=== PATIENT | female | born 1965 | race Caucasian/White ===

== ENCOUNTER 2020-09-26 08:41 | Outpatient (REF) | payer BC, SELFPAY ==
[2020-09-26 09:37] LABS: MANUAL DIFF FLAG NO
[2020-09-26 09:41] LABS: Basophils Percent Auto 0.5 % (0-2); Eosinophils Absolute Auto 0.1 X10*3/uL (0.0-0.4); Eosinophils Percent Auto 2.3 % (0-4); Hematocrit 41.2 % (37-47); Hemoglobin 13.8 g/dl (12.0-16.0); Imm Gran Abs Auto 0.01 X10*3/uL (0.00-0.03); Imm Gran Pct Auto 0.2 % (0.0-0.4); Lymphocytes Absolute Auto 1.6 X10*3/uL (1.2-4.9); Lymphocytes Percent Auto 27.2 % (20-40); Mean Corpuscular HGB Conc 33.5 g/dl (31.0-35.0); Mean Corpuscular Hemoglobin 29.2 pg (27.0-33.0); Mean Corpuscular Volume 87.3 fL (80-98); Mean Platelet Volume 9.5 fL (9.4-12.3); Monocytes Absolute Auto 0.5 X10*3/uL (0.1-1.2); Monocytes Percent Auto 9.1 % (2-11); Neutrophils Absolute Auto 3.5 X10*3/uL (2.0-8.3); Neutrophils Percent Auto 60.7 % (45-73); Platelet Count 241 X10*3/uL (160-400); Red Blood Count 4.72 X10*6/uL (4.20-5.50); Red Cell Distribution Width 12.6 % (11.0-16.0); White Blood Count 5.7 X10*3/uL (4.8-10.8)
[2020-09-26 10:08] LABS: Alanine Aminotransferase 24 U/L (0-31); Albumin Level 4.2 g/dL (3.5-5.0); Alkaline Phosphatase 65 U/L (39-117); Anion Gap 11 (12-20); Aspartate Amino Transferase 20 U/L (5-31); Bilirubin Total 0.6 mg/dL (0.0-1.0); Blood Urea Nitrogen 19 mg/dL (9-16); Calcium 9.2 mg/dL (8.4-10.2); Carbon Dioxide 29 mmol/L (22-29); Chloride 106 mmol/L (96-108); Cholesterol 217 mg/dL; Estimated Glomerular Filt Rate > 60; Glucose Fasting 97 mg/dL (60-99); HDL Cholesterol 47 mg/dL; LDL Cholesterol Calculated 148 mg/dl; Potassium 4.1 mmol/l (3.3-5.1); Sodium 142 mmol/L (135-145); Total Protein 6.7 g/dL (6.5-8.0); Triglycerides 114 mg/dL
[2020-09-26 10:28] LABS: T4 Thyroxine 7.6 ug/dL (4.5-12.0); Thyroid Stimulating Hormone 1.04 uIU/mL (0.32-4.0); Vitamin D 25-OH Total 29.7 ng/mL (>30)
[2020-09-26 11:41] LABS: Folate 15.1 ng/mL (> or = 4.0); Vitamin B12 1358 pg/mL (200-900)
== END 2020-09-26 08:42 | disposition home or self-care (01) ==
LOC: HO.LAB 08:41
PROVIDERS: PCP Internal Medicine; Visit Provider Internal Medicine
DX: J45.909 Unspecified asthma, uncomplicated (principal); Z85.3 Personal history of malignant neoplasm of breast; I10 Essential (primary) hypertension; F41.9 Anxiety disorder, unspecified; S32.020D Wedge compression fracture of second lumbar vertebra, subsequent encounter for fracture with routine healing; K58.9 Irritable bowel syndrome, unspecified; J30.9 Allergic rhinitis, unspecified; G47.00 Insomnia, unspecified
CPT/HCPCS: 36415; 80053; 80061; 82306; 82607; 82746; 84436; 84443; 85025

== ENCOUNTER 2020-11-17 10:36 | Outpatient (REF) | payer BC, SELFPAY ==
--- NOTE | 2020-11-17 10:42 | MM_ITS ---
EXAMINATION: MM SCREENING DIGITAL BREAST TOMOSYNTHESIS, BILATERAL CLINICAL INFORMATION: Screening. Asymptomatic. 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 Left lumpectomy 20 years ago. Family history breast cancer in sister. Due for yearly. The lifetime risk of breast cancer based on the Tyrer-Cuzick Model is 31%. COMPARISON: Mammography: 11/12/2019, 09/19/2018, 08/25/2017 TECHNIQUE: Digital breast tomosynthesis is performed in both the craniocaudal and mediolateral oblique views along with computer-aided detection (CAD). Synthesized 2D images are generated from the tomosynthesis. FINDINGS: There are scattered areas of fibroglandular density (ACR BI-RADS breast composition Category b). Breast tissue composition is similar to prior studies. There are is old scarring right breast consistent with the history prior lumpectomy. Nodular asymmetry anterior left breast on CC view and small nodule posterior outer left breast on CC view are both stable from prior studies. There is no developing density or interval significant mass or architectural abnormality. No abnormal calcifications. No significant changes. MM/MM tomosynthesis screening BI IMPRESSION: No significant changes from prior studies. ASSESSMENT: BI-RADS 2: Benign RECOMMENDATION: 1. Routine annual mammography screening. 2. The lifetime risk of breast cancer based on the Tyrer-Cuzick Model is 31%. Additional annual adjunct screening with breast MRI may be of benefit in women with a risk score of 20% or greater. This patient's information was entered into a reminder system with a target due date for their next mammogram.
== END 2020-11-17 10:37 | disposition home or self-care (01) ==
LOC: HO.MAMMO 10:36
PROVIDERS: PCP Internal Medicine; Visit Provider Internal Medicine
DX: Z12.31 Encounter for screening mammogram for malignant neoplasm of breast (principal)
CPT/HCPCS: 77063; 77067

== ENCOUNTER → 2021-03-30 09:38 | Outpatient (BNV) | payer BC, SELFPAY | PROVIDERS: PCP Internal Medicine; Visit Provider Internal Medicine Medical Oncology | DX: C50.812 Malignant neoplasm of overlapping sites of left female breast (principal) | CPT/HCPCS: 99213; 99214 ==

== ENCOUNTER → 2021-08-02 10:10 | Outpatient (BNVA) | payer BC, SELFPAY | PROVIDERS: PCP Internal Medicine; Referring Provider Internal Medicine; Visit Provider Surgery ==

== ENCOUNTER 2021-08-22 09:58 | Emergency (ER) | payer BC, SELFPAY ==
--- NOTE | ~2021-08-22 | XR_ITS ---
EXAMINATION: XR CHEST CLINICAL INFORMATION: Chest pain COMPARISON: None TECHNIQUE: Frontal view of the chest was obtained. FINDINGS: No significant abnormality is noted involving the heart, lungs, mediastinum, bony thorax or soft tissues. XR/XR chest 1V IMPRESSION: Unremarkable chest exam.
[2021-08-22 10:07] VITALS: BP 168/79; PULSE 56; RESP 18; TEMP 36.3; O2SAT 97; BMI 32.2
--- NOTE | 2021-08-22 10:13 | ECG_ITS ---
Test Reason : CP Blood Pressure : / mmHG Vent. Rate : 060 BPM Atrial Rate : 060 BPM P-R Int : 150 ms QRS Dur : 082 ms QT Int : 424 ms P-R-T Axes : 056 042 062 degrees QTc Int : 424 ms Normal sinus rhythm Nonspecific T wave abnormality Anterior leads Abnormal ECG When compared with ECG of 16-SEP-2017 10:49, Nonspecific T wave abnormality no longer evident in Inferior leads T-wave inversion in Anterior leads is new Referred By: Generic ED Physician Electronically Signed By:ANABELL DORAN MD
[2021-08-22 13:21] LABS: MANUAL DIFF FLAG NO
[2021-08-22 13:25] LABS: Basophils Percent Auto 0.6 % (0-2); Eosinophils Absolute Auto 0.2 X10*3/uL (0.0-0.4); Eosinophils Percent Auto 2.4 % (0-4); Hematocrit 41.1 % (37-47); Imm Gran Abs Auto 0.02 X10*3/uL (0.00-0.03); Imm Gran Pct Auto 0.3 % (0.0-0.4); Lymphocytes Absolute Auto 1.9 X10*3/uL (1.2-4.9); Lymphocytes Percent Auto 29.1 % (20-40); Mean Corpuscular HGB Conc 34.1 g/dl (31.0-35.0); Mean Corpuscular Hemoglobin 29.3 pg (27.0-33.0); Mean Platelet Volume 9.2 fL (9.4-12.3); Monocytes Absolute Auto 0.6 X10*3/uL (0.1-1.2); Monocytes Percent Auto 9.1 % (2-11); Neutrophils Absolute Auto 3.9 X10*3/uL (2.0-8.3); Neutrophils Percent Auto 58.5 % (45-73); Platelet Count 246 X10*3/uL (160-400); Red Blood Count 4.78 X10*6/uL (4.20-5.50); Red Cell Distribution Width 12.9 % (11.0-16.0); White Blood Count 6.6 X10*3/uL (4.8-10.8)
--- NOTE | 2021-08-22 13:35 | ED_ITS ---
HPI - Chest Pain General Chief Complaint: Chest Pain Stated Complaint: chest pain Time Seen by Provider: 08/22/21 12:52 Source: patient Mode of arrival: ambulatory Limitations: no limitations History of Present Illness HPI narrative: Patient comes emergency room complaining left-sided chest pain, intermittent, sharp lasting for approximately 3 seconds at a time. At this time, patient has no chest pain or shortness of breath Patient complaining of occasional shortness of breath. Patient states her symptoms started yesterday afternoon while she was watching TV. Related Data Home Medications Medication Instructions Recorded Confirmed meloxicam 15 mg tablet 15 mg PO DAILY 09/27/20 03/30/21 tramadol 50 mg tablet 50 mg PO DAILY 09/27/20 03/30/21 zolpidem 5 mg tablet 5 mg PO BEDTIME PRN 08/02/21 Previous Rx's Medication Instructions Recorded escitalopram oxalate 20 mg tablet 20 mg PO DAILY #30 tab 02/21/21 albuterol sulfate 90 mcg/actuation 2 puff INHALATION Q6H PRN #8.5 g 03/01/21 aerosol inhaler hydrochlorothiazide 25 mg tablet 25 mg PO DAILY #90 tab 03/01/21 lisinopril 5 mg tablet 5 mg PO DAILY #90 tab 03/01/21 montelukast 10 mg tablet 10 mg PO DAILY #90 tab 03/01/21 eniiylxy-bljwaojwp-xtwsbembr 3.5 4 drp OTIC (EAR) RIGHT Q8H 10 Days 05/31/21 mg-10,000 unit/mL-1 % ear #10 ml drops,susp sumatriptan succinate 100 mg tablet 100 mg PO .QD PRN #10 tab 05/31/21 Allergies Allergy/AdvReac Type Severity Reaction Status Date / Time latex [LATEX] Allergy Intermediate RASH Verified 08/22/21 10:07 ENVIRONMENTAL Allergy Mild HAYFEVER Uncoded 08/02/21 10:47 Review of Systems Review of Systems: Constitutional : No Weight loss, No Fever, No Chills, No Ni ght Sweats, No Fatigue, No Malaise ENT/Mouth : No Hearing loss, No Ear Pain, No Nasal Congestion, No Sinus Pain, No Hoarseness, No sore throat, No Rhinorrhea, No Swallowing Difficulty Eyes: No Eye Pain, No Swelling, No Redness, No Foreign Body, No Discharge, No Vision Changes Cardiovascular : Complaining of sharp chest pain lasting 3 seconds, nonradiating, intermittent. Asymptomatic at this time. No SOB, No Dyspnea on Exertion, No Orthopnea, No Edema, No Palpitations Respiratory : No Cough, No Sputum, No Wheezing, No Smoke Exposure, No Dyspnea Gastrointestinal : No Nausea, No Vomiting, No Diarrhea, No Constipation, No abdominal Pain, No Hematochezia, No Melena Genitourinary : no irregular bleeding, No Dysuria, No Urinary Frequency, No Hematuria, No Urinary Incontinence, No Urgency, No Flank Pain, No Urinary Flow Changes, No Hesitancy Musculoskeletal : No joint pain, No Myalgias, No Joint Swelling Skin : No Skin Lesions, No rash Neuro : No Weakness, No Numbness, No Paresthesias, No Loss of Consciousness, No Dizziness, No Headache Psych : No Anxiety/Panic, No Depression, No SI/HI/AH/VH, No Social Issues, Heme/Lymph: No Bruising, No Bleeding,No Lymphadenopathy Endocrine : No Polyuria, No Polydipsia, No Temperature Intolerance [facility] Past Medical History Medical History Allergic rhinitis Allergic sinusitis Anxiety and depression Asthma Breast cancer Carpal tunnel syndrome Compression fracture of L2 GERD (gastroesophageal reflux disease) Hypercholesterolemia Hypertension Insomnia Irritable bowel syndrome Lumbar degenerative disc disease Migraine Obesity (BMI 30-39.9) Pulmonary nodule Surgical History History of cholecystectomy History of lumpectomy of right breast Status post total abdominal hysterectomy Family History Family History Father Diabetes Hypertension Mother Throat cancer Diabetes Hypertension Breast lump Sister Breast cancer Brother Myocardial infarction CVD (cardiovascular disease) Sister Breast cancer Social History Social History Housing: House Alcohol intake: current Alcohol intake frequency: holidays/special occasions only Alcohol type: beer and wine Patient Tobacco Use Status: Never used Tobacco e-Cigarette/Vaping Use: Never Used Second Hand Smoke Exposure: No Advance Directives: No Advance Directives Information Provided: No Current occupational status: employed Physical Exam Vital Signs: Vital Signs: Last Vital Signs Temp 97.4 F 08/22/21 10:07 Pulse 58 08/22/21 14:41 Resp 14 08/22/21 14:41 BP 150/77 H 08/22/21 14:41 Pulse Ox 98 08/22/21 14:41 Body Mass Index 32.2 Const: Other: Appearance: Alert. Oriented X3. No acute distress. Eyes: Pupils equal, round and reactive to light. ENT: Pharynx normal. Neck: Normal inspection. Neck supple. No lymph nodes noted. No crepitus CVS: Normal heart rate and rhythm. Pulses normal. Normal S1 and S2 Respiratory: No respiratory distress. Breath sounds normal. No Wheezing. No rales Abdomen: Soft and nontender. No rigidity. No distention. good BS x4 Skin: Skin warm and dry. Normal skin color. Normal skin turgor. Extremities: Trace pitting edema bilaterally, no calf tenderness, No Lacerations. No Rash Neuro: Oriented X 3. No motor deficit. No sensory deficit. Moving all extermities. No slurred speech. Course Course Course Narrative: Patient remains asymptomatic at this time, troponin negative, EKG normal. Patient instructed to follow-up with her primary care physician. I discussed with the patient that if she continues having symptoms, she may need a stress MDM - Chest Pain Lab Data Result diagrams: 08/22/21 13:14 08/22/21 13:14 Labs: Lab Results 08/22/21 08/22/21 08/22/21 Range/Units 13:14 13:14 13:14 WBC 6.6 (4.8-10.8) X10*3/uL RBC 4.78 (4.20-5.50) X10*6/uL Hgb 14.0 (12.0-16.0) g/dl Hct 41.1 (37-47) % MCV 86.0 (80-98) fL MCH 29.3 (27.0-33.0) pg MCHC 34.1 (31.0-35.0) g/dl RDW 12.9 (11.0-16.0) % Plt Count 246 (160-400) X10*3/uL MPV 9.2 L (9.4-12.3) fL Immature Gran % (Auto) 0.3 (0.0-0.4) % Neut % (Auto) 58.5 (45-73) % Lymph % (Auto) 29.1 (20-40) % Hinds % (Auto) 9.1 (2-11) % Eos % (Auto) 2.4 (0-4) % Baso % (Auto) 0.6 (0-2) % Lymph # (Auto) 1.9 (1.2-4.9) X10*3/uL Hinds # (Auto) 0.6 (0.1-1.2) X10*3/uL Eos # (Auto) 0.2 (0.0-0.4) X10*3/uL Baso # (Auto) 0.0 (0.0-0.2) X10*3/uL Abs Immat Gran (auto) 0.02 (0.00-0.03) X10*3/uL Absolute Neuts (auto) 3.9 (2.0-8.3) X10*3/uL Absolute Nucleated RBC 0.000 (0.0-0.012) X10*3/uL Nucleated RBC % (auto) 0.0 (0.0-0.2) /100WBC Sodium 139 (135-145) mmol/L Potassium 4.0 (3.3-5.1) mmol/L Chloride 104 (96-108) mmol/L Carbon Dioxide 26 (22-29) mmol/L Anion Gap 13 (12-20) BUN 12 (9-16) mg/dL Creatinine 0.71 (0.5-1.4) mg/dL Estim Creat Clear Calc 80.8 Estimated GFR > 60 Random Glucose 110 (60-115) mg/dL Calcium 9.7 (8.4-10.2) mg/dL Troponin I High Sens < 3.5 (<3.5-17.0) ng/L ECG Data ECG #1: Attestation: I personally reviewed and interpreted this ECG as follows: (Normal sinus rhythm, heart rate 60, no ST segment depression or elevation, no T-wave inversion, QTC 424) Discharge Plan Discharge Clinical Impression: Atypical chest pain Patient Disposition: Home, Self-Care Instructions: Chest Pain (ED) Additional Instructions: Please follow-up with your primary care physician tomorrow. If you have any worsening or new symptoms, please return to the emergency room or call 911 Prescriptions: No Action escitalopram oxalate 20 mg tablet 20 mg PO DAILY Qty: 30 RF: 9 sumatriptan succinate 100 mg tablet 100 mg PO .QD PRN (Reason: migraine headache) Qty: 10 RF: 4 ptuysuwx-eduydqtic-HC 3.5-10,000-1 mg/mL-unit/mL-% drops,suspension 4 drp otic (ear) right Q8H 10 Days Qty: 10 RF: 0 meloxicam 15 mg tablet 15 mg PO DAILY RF: 0 tramadol 50 mg tablet 50 mg PO DAILY RF: 0 albuterol sulfate 90 mcg/actuation HFA aerosol inhaler 2 puff inhalation Q6H PRN (Reason: bronchospasm) Qty: 8.5 RF: 0 hydrochlorothiazide 25 mg tablet 25 mg PO DAILY Qty: 90 RF: 2 lisinopril 5 mg tablet 5 mg PO DAILY Qty: 90 RF: 3 montelukast 10 mg tablet 10 mg PO DAILY Qty: 90 RF: 3 zolpidem 5 mg tablet 5 mg PO BEDTIME PRNRF: 0
[2021-08-22 13:56] LABS: Troponin-I High Sensitivity < 3.5 ng/L (<3.5-17.0)
[2021-08-22 13:57] LABS: Anion Gap 13 (12-20); Blood Urea Nitrogen 12 mg/dL (9-16); Calcium 9.7 mg/dL (8.4-10.2); Carbon Dioxide 26 mmol/L (22-29); Chloride 104 mmol/L (96-108); Creatinine Clr Calc Pharmacy 80.8; Estimated Glomerular Filt Rate > 60; Glucose Random 110 mg/dL (60-115); Sodium 139 mmol/L (135-145)
[2021-08-22 14:41] VITALS: BP 150/77; PULSE 58; RESP 14; O2SAT 98
== END 2021-08-22 15:39 | disposition home or self-care (01) ==
PROVIDERS: Emergency Provider Emergency Medicine; PCP Internal Medicine
DX: R07.89 Other chest pain (principal); I10 Essential (primary) hypertension; J45.909 Unspecified asthma, uncomplicated
CPT/HCPCS: 36415; 71045; 80048; 84484; 85025; 93005; 99283; 99284

== ENCOUNTER 2021-09-13 10:35 | Outpatient (REF) | payer BC, SELFPAY ==
--- NOTE | ~2021-09-13 | MR_ITS ---
EXAMINATION: MR BREAST WITHOUT AND WITH CONTRAST, BILATERAL CLINICAL INFORMATION: History of right breast DCIS. High-risk screening. COMPARISON: MRI 10/28/2012. TECHNIQUE: Imaging was performed with a dedicated breast coil. Prior to the administration of contrast, bilateral axial T1 and bilateral axial T2 weighted sequences were obtained. After the uneventful administration of?7.5 mL of Gadavist, dynamic contrast-enhanced VIBRANT series through the breasts in the axial plane were performed. Subtracted images were performed and reviewed. A delayed sagittal sequence through both breasts was acquired. Additionally, CAD post-processing, including maximum intensity projections, 3-D reconstructions and kinetic analysis, were performed an independent workstation and reviewed by the interpreting radiologist is a portion of this exam. FINDINGS: The patient's fibroglandular tissue demonstrates moderate background enhancement. LEFT BREAST: In the 12 o'clock position of the left breast, there is linear non-mass enhancement measuring 0.7 cm in size which demonstrates plateau or type II enhancement (image 68, series 100). This is a new finding compared to the remote MRI. No mammographic correlate. Recommend MRI-guided biopsy. There are a few additional scattered foci of enhancement. No other definite suspicious [id number] or mass-like enhancement. T2 hyperintense enhancing focus in the left breast, 12 o'clock more superiorly is consistent with an intramammary lymph node. Review of the T2-weighted images demonstrates no additional findings. Review of the kinetic images demonstrates no additional suspicious findings. RIGHT BREAST: No suspicious mass-like or [id number] enhancement. No abnormal skin thickening or nipple retraction. No abnormal architectural distortion. Review of the T2 weighted images demonstrates no fibrocystic changes or dilated ducts. Review of kinetic images reveals no additional findings. There is no suspicious internal mammary chain or axillary adenopathy. Limited views of the chest and abdomen are unremarkable. MR/MR breast BI wo/w con IMPRESSION: Indeterminant non-mass enhancement, left breast, 12 o'clock. No MR specific evidence of right breast malignancy. ASSESSMENT: LEFT BREAST: BI-RADS 4 - Suspicious abnormality - Biopsy should be considered. RIGHT BREAST: BI-RADS 1-Negative RECOMMENDATIONS: MRI-guided biopsy, left breast, 12 o'clock. This recommendation will be called to the referring office.
== END 2021-09-13 10:36 | disposition home or self-care (01) ==
LOC: HO.MRI 10:35
PROVIDERS: Visit Provider Surgery
DX: D05.10 Intraductal carcinoma in situ of unspecified breast (principal)
CPT/HCPCS: 77049; A9585

== ENCOUNTER 2021-10-02 07:46 | Outpatient (REF) | payer BC, SELFPAY ==
--- NOTE | ~2021-10-02 | MM_ITS ---
EXAMINATION: MR GUIDED VACUUM-ASSISTED CORE BIOPSY BREAST, LEFT MM DIGITAL MAMMOGRAPHY POST BIOPSY, LEFT CLINICAL INFORMATION: 7 mm nonenhanced linear enhancement 12:00 left breast on high risk screening. No mammographic correlate. History contralateral right breast severely atypical ductal hyperplasia, bordering on DCIS. COMPARISON: MR of breasts 09/13/2021, mammography 11/17/2020. TECHNIQUE/PROCEDURE: Informed consent was obtained from the patient after discussion of the benefits, risks, and alternatives to biopsy today. Patient appeared to understand. Gave opportunity for questions. Patient signed consent form. Biopsy is performed under MRI guidance using breast surface coil. Imaging is performed without and with use of 7.5 mL Gadavist gadolinium contrast. [employer]ibi[employer] introducer localization system is used with grid. LESION: 7 mm linear non mass enhancement 12:00. LOCAL ANESTHESIA: 8 mL 1% lidocaine; 10 mL 1% lidocaine with epinephrine. NEEDLE: [employer] 9-gauge vacuum assisted core biopsy device. APPROACH: Lateral medial. CORES: 9. CLIP: TriMark cylinder shaped. POSTPROCEDURE UNILATERAL DIGITAL MAMMOGRAM: Mammography is performed using digital mammography in CC and ML views. There are scattered areas of fibroglandular density (ACR BI-RADS breast composition Category b). The clip marker is in position. No gross hematoma. The patient tolerated the procedure well. No immediate complications. Home instructions reviewed with the patient. Final pathology results are pending. MM/MM diagnostic mammo unilat LT IMPRESSION: 1. Status post MRI guided vacuum-assisted core biopsy left breast with clip placement. 2. Final pathology results pending. An addendum report will be issued.
--- NOTE | ~2021-10-02 | MR_ITS ---
EXAMINATION: MR GUIDED VACUUM-ASSISTED CORE BIOPSY BREAST, LEFT MM DIGITAL MAMMOGRAPHY POST BIOPSY, LEFT CLINICAL INFORMATION: 7 mm nonenhanced linear enhancement 12:00 left breast on high risk screening. No mammographic correlate. History contralateral right breast severely atypical ductal hyperplasia, bordering on DCIS. COMPARISON: MR of breasts 09/13/2021, mammography 11/17/2020. TECHNIQUE/PROCEDURE: Informed consent was obtained from the patient after discussion of the benefits, risks, and alternatives to biopsy today. Patient appeared to understand. Gave opportunity for questions. Patient signed consent form. Biopsy is performed under MRI guidance using breast surface coil. Imaging is performed without and with use of 7.5 mL Gadavist gadolinium contrast. [employer] introducer localization system is used with grid. LESION: 7 mm linear non mass enhancement 12:00. LOCAL ANESTHESIA: 8 mL 1% lidocaine; 10 mL 1% lidocaine with epinephrine. NEEDLE: [employer] 9-gauge vacuum assisted core biopsy device. APPROACH: Lateral medial. CORES: 9. CLIP: TriMark cylinder shaped. POSTPROCEDURE UNILATERAL DIGITAL MAMMOGRAM: Mammography is performed using digital mammography in CC and ML views. There are scattered areas of fibroglandular density (ACR BI-RADS breast composition Category b). The clip marker is in position. No gross hematoma. The patient tolerated the procedure well. No immediate complications. Home instructions reviewed with the patient. Final pathology results are pending. MR/MR guided breast biopsy LT IMPRESSION: 1. Status post MRI guided vacuum-assisted core biopsy left breast with clip placement. 2. Final pathology results pending. An addendum report will be issued.
[2021-10-02] MEDS: Lidocaine HCl 1 % MPF 5 ML VIAL SUBCUT ×2 (09:44→09:45)
== END 2021-10-02 07:47 | disposition home or self-care (01) ==
LOC: HO.MRI 07:46
PROVIDERS: Visit Provider Surgery
DX: R92.8 Other abnormal and inconclusive findings on diagnostic imaging of breast (principal); C50.919 Malignant neoplasm of unspecified site of unspecified female breast
CPT/HCPCS: 19085; 77065; 88305; 88341; 88342; A4648; A9585

== ENCOUNTER → 2021-10-11 13:52 | Outpatient (BNVA) | payer BC, SELFPAY | PROVIDERS: PCP Internal Medicine; Referring Provider Internal Medicine; Visit Provider Surgery ==

== ENCOUNTER → 2021-11-19 10:19 | Outpatient (REF) | payer BC, SELFPAY ==
--- NOTE | 2021-11-19 10:22 | CA_ITS ---
Acquisition Time: 2021-11-19 11:16:20 Total Exercise Time: 00:06:35 Test Indications: CP Medications: SEE CHART Protocol: BROCK Max HR: 176 BPM 106% of Pred: 165 BPM Max BP: 176/064 mmHG Max Work Load: 7.9 METS Exercise stress test with exercise 6 min 35 sec of Brock protocol, without anginal symptoms, without arrythmia, with normotensive response to exercise, without EKG changes meeting criteria for ischemia at peak exercise, with scooping ST segments inferiorly in recovery - nonspecific. Test reviewed with Dr Fry. Msg sent to Dr Levy. Recommended stress echocardiogram for further evaluation. Referred By: Aniceto Levy Overread By: FABRIZIO MANRIQUE
== END ==
LOC: HO.CARD 10:19
PROVIDERS: PCP Internal Medicine; Visit Provider Internal Medicine
DX: R07.9 Chest pain, unspecified (principal)
CPT/HCPCS: 93017

== ENCOUNTER 2021-11-19 11:07 | Outpatient (REF) | payer BC, SELFPAY ==
[2021-11-19 11:21] LABS: MANUAL DIFF FLAG NO
[2021-11-19 11:25] LABS: Basophils Percent Auto 0.7 % (0-2); Eosinophils Absolute Auto 0.2 X10*3/uL (0.0-0.4); Eosinophils Percent Auto 2.5 % (0-4); Hematocrit 44.6 % (37.0-47.0); Hemoglobin 14.9 g/dl (12.0-16.0); Imm Gran Abs Auto 0.02 X10*3/uL (0.00-0.03); Imm Gran Pct Auto 0.3 % (0.0-0.4); Lymphocytes Absolute Auto 1.5 X10*3/uL (1.2-4.9); Lymphocytes Percent Auto 23.7 % (20-40); Mean Corpuscular HGB Conc 33.4 g/dl (31.0-35.0); Mean Corpuscular Hemoglobin 28.8 pg (27.0-33.0); Mean Corpuscular Volume 86.3 fL (80.0-98.0); Mean Platelet Volume 8.7 fL (9.4-12.3); Monocytes Absolute Auto 0.9 X10*3/uL (0.1-1.2); Monocytes Percent Auto 14.5 % (2-11); Neutrophils Absolute Auto 3.6 x10*3/uL (2.0-8.3); Neutrophils Percent Auto 58.3 % (45-73); Platelet Count 238 X10*3/uL (160-400); Red Blood Count 5.17 X10*6/uL (4.20-5.50); Red Cell Distribution Width 12.8 % (11.0-16.0); White Blood Count 6.1 X10*3/uL (4.8-10.8)
[2021-11-19 11:36] LABS: Estimated Average Glucose 114 mg/dL; Hemoglobin A1C 149.5496 umol/L; Hemoglobin A1c % 5.6 %
[2021-11-19 11:54] LABS: Alanine Aminotransferase 33 U/L (0-31); Albumin Level 4.4 g/dL (3.5-5.0); Alkaline Phosphatase 83 U/L (39-117); Anion Gap 12 (12-20); Aspartate Amino Transferase 27 U/L (5-31); Bilirubin Total 0.5 mg/dL (0.0-1.0); Blood Urea Nitrogen 13 mg/dL (9-16); Calcium 10.1 mg/dL (8.4-10.2); Carbon Dioxide 29 mmol/L (22-29); Chloride 103 mmol/L (96-108); Cholesterol 219 mg/dL; Estimated Glomerular Filt Rate > 60; Glucose Random 105 mg/dL (60-115); HDL Cholesterol 44 mg/dL; LDL Cholesterol Calculated 150 mg/dl; Potassium 3.8 mmol/L (3.3-5.1); Sodium 140 mmol/L (135-145); Total Protein 7.5 g/dL (6.5-8.0); Triglycerides 129 mg/dL
[2021-11-19 12:20] LABS: Free T4 (Free Thyroxine) 1.12 ng/dL (0.71-1.85); Thyroid Stimulating Hormone 0.92 uIU/mL (0.32-4.0); Vitamin D 25-OH Total 34.8 ng/mL (>30)
[2021-11-19 12:30] LABS: Folate 18.3 ng/mL (> or = 4.0); Vitamin B12 528 pg/mL (200-900)
== END 2021-11-19 11:08 | disposition home or self-care (01) ==
LOC: HO.LAB 11:07
PROVIDERS: PCP Internal Medicine; Visit Provider Internal Medicine
DX: R73.02 Impaired glucose tolerance (oral) (principal); E78.00 Pure hypercholesterolemia, unspecified; R07.9 Chest pain, unspecified
CPT/HCPCS: 36415; 80053; 80061; 82306; 82607; 82746; 83036; 84439; 84443; 85025

== ENCOUNTER 2021-12-04 10:00 | Outpatient (REF) | payer BC, SELFPAY ==
[2021-12-04 11:07] LABS: MANUAL DIFF FLAG NO
[2021-12-04 11:38] LABS: Basophils Absolute Auto 0.1 X10*3/uL (0.0-0.2); Basophils Percent Auto 0.6 % (0-2); Eosinophils Absolute Auto 0.2 X10*3/uL (0.0-0.4); Eosinophils Percent Auto 1.9 % (0-4); Hematocrit 43.3 % (37.0-47.0); Hemoglobin 14.4 g/dl (12.0-16.0); Imm Gran Abs Auto 0.04 X10*3/uL (0.00-0.03); Imm Gran Pct Auto 0.5 % (0.0-0.4); Lymphocytes Absolute Auto 2.1 X10*3/uL (1.2-4.9); Lymphocytes Percent Auto 26.3 % (20-40); Mean Corpuscular HGB Conc 33.3 g/dl (31.0-35.0); Mean Corpuscular Hemoglobin 28.6 pg (27.0-33.0); Mean Corpuscular Volume 85.9 fL (80.0-98.0); Mean Platelet Volume 9.5 fL (9.4-12.3); Monocytes Absolute Auto 0.8 X10*3/uL (0.1-1.2); Monocytes Percent Auto 10.4 % (2-11); Neutrophils Absolute Auto 4.9 x10*3/uL (2.0-8.3); Neutrophils Percent Auto 60.3 % (45-73); Platelet Count 295 X10*3/uL (160-400); Red Blood Count 5.04 X10*6/uL (4.20-5.50); Red Cell Distribution Width 12.6 % (11.0-16.0); White Blood Count 8.1 X10*3/uL (4.8-10.8)
[2021-12-04 12:17] LABS: Alanine Aminotransferase 26 U/L (0-31); Albumin Level 4.3 g/dL (3.5-5.0); Alkaline Phosphatase 83 U/L (39-117); Anion Gap 15 (12-20); Aspartate Amino Transferase 20 U/L (5-31); Bilirubin Total 0.6 mg/dL (0.0-1.0); Blood Urea Nitrogen 22 mg/dL (9-16); Calcium 10.4 mg/dL (8.4-10.2); Carbon Dioxide 28 mmol/L (22-29); Chloride 101 mmol/L (96-108); Estimated Glomerular Filt Rate > 60; Glucose Random 92 mg/dL (60-115); Potassium 4.5 mmol/L (3.3-5.1); Sodium 139 mmol/L (135-145); Total Protein 7.5 g/dL (6.5-8.0)
[2021-12-04 12:25] LABS: Ferritin 150 ng/mL (10-250); Thyroid Stimulating Hormone 1.09 uIU/mL (0.32-4.0)
== END 2021-12-04 10:01 | disposition home or self-care (01) ==
LOC: HO.LAB 10:00
PROVIDERS: PCP Internal Medicine; Referring Provider Internal Medicine; Visit Provider Psychiatry & Neurology Neurology
DX: G47.10 Hypersomnia, unspecified (principal); G25.81 Restless legs syndrome; R06.83 Snoring
CPT/HCPCS: 36415; 80053; 82728; 84443; 85025

== ENCOUNTER → 2021-12-19 10:14 | Outpatient (REF) | payer BC, SELFPAY ==
--- NOTE | 2021-12-19 10:17 | CA_ITS ---
Acquisition Time: 2021-12-19 10:46:30 Total Exercise Time: 00:07:28 Test Indications: Abnormal Treadmill Test Medications: BUPROPION ESCITALOPRAM FAMOTIDINE FEXOFINEDINE HCTZ LISINOPRIL MELOXICAM SUMATRIPTAN Protocol: BROCK Max HR: 193 BPM 116% of Pred: 165 BPM Max BP: 176/078 mmHG Max Work Load: 9.2 METS Exercise stress test with exercise 7 min 28 sec of Brock protocol, without mild sob, no chest discomfort, without arrythmia, with normotensive response to exercise, with significant artifact at peak exercise, without EKG changes meeting criteria at 29 sec of recovery, with nonspecific ST changes inferiorly in recovery. Echo images obtained by tech at rest at immediately post peak exercise. Definity contrast used. Post images she reported feeling lightheaded and was placed in supine position. Her vitals remained stable. Once symptom passess she was given some caffinated soda, recovery completed and she was allowed to leave cardiology department without lightheadedness. Test reviewed with Dr Alcantar. Referred By: Aniceto Levy Overread By: FABRIZIO MANRIQUE
== END ==
LOC: HO.CARD 10:14
PROVIDERS: Visit Provider Internal Medicine
DX: R07.9 Chest pain, unspecified (principal)
CPT/HCPCS: 93350; Q9957

== ENCOUNTER → 2022-02-06 10:26 | Outpatient (REF) | payer BC, SELFPAY | LOC: HO.SL 10:26 | PROVIDERS: Visit Provider Psychiatry & Neurology Neurology | DX: Z13.89 Encounter for screening for other disorder (principal) ==

== ENCOUNTER → 2022-03-19 09:51 | Outpatient (REF) | payer BC, SELFPAY | LOC: HO.SL 09:51 | PROVIDERS: PCP Internal Medicine; Visit Provider Psychiatry & Neurology Neurology | DX: R06.83 Snoring (principal); G47.10 Hypersomnia, unspecified; G25.81 Restless legs syndrome | CPT/HCPCS: 95806 ==

== ENCOUNTER 2022-05-08 06:28 | Day surgery (SDC) | payer BC, SELFPAY ==
--- NOTE | 2022-05-07 09:45 | HO.ANESPROP2 ---
HPI - Anesthesia Eval Consult details Narrative: 56yo F for Left Breast Lumpectomy/Needle Loc PMFSH Active Problems Active Problems: All Active Problems (Updated 02/18/22 @ 16:01 by Aniceto Levy MD) Vision problem (Acute) Anemia (Acute) Restless legs (Acute) Snoring (Acute) Cervical radiculopathy (Acute) Thoracic spondylosis (Acute) Hypersomnia (Acute) DCIS (ductal carcinoma in situ) of breast (Acute) Blood sugar increased (Acute) Otitis externa (Acute) Annual physical exam (Acute) Generalized anxiety disorder (Acute) Dysphagia (Acute) Chest pain (Acute) Constipation (Acute) Impaired glucose tolerance (Acute) Abnormal magnetic resonance imaging of left breast (Acute) Intraductal papilloma of left breast (Acute) Allergic rhinitis (Acute) Breast cancer (Acute) Compression fracture of L2 (Acute) Obesity (BMI 30-39.9) (Acute) Hypercholesterolemia (Acute) Irritable bowel syndrome (Acute) GERD (gastroesophageal reflux disease) (Acute) Asthma (Acute) Hypertension (Acute) Past Medical History Medical History Allergic sinusitis Carpal tunnel syndrome COVID-19 vaccine series completed Insomnia Lumbar degenerative disc disease Migraine Pulmonary nodule Family History Family History Father Diabetes Hypertension Myocardial infarction Mother Throat cancer Diabetes Hypertension Breast lump Sister Breast cancer Brother Myocardial infarction CVD (cardiovascular disease) Substance abuse Sister Breast cancer Son Diabetes Surgical History Surgical History H/O breast biopsy H/O colonoscopy History of cholecystectomy History of lumpectomy of right breast Status post total abdominal hysterectomy Social History Social History Housing: House Alcohol intake: current Alcohol intake frequency: holidays/special occasions only Alcohol type: beer and wine Patient Tobacco Use Status: Never used Tobacco e-Cigarette/Vaping Use: Never Used Second Hand Smoke Exposure: No Current occupational status: employed Cognitive needs: No Hearing needs: No Vision needs: No Meds Allergies Allergy/AdvReac Type Severity Reaction Status Date / Time latex [LATEX] Allergy Intermediate RASH Verified 02/18/22 15:38 ENVIRONMENTAL Allergy Mild HAYFEVER Uncoded 02/18/22 15:38 Home Medications Medication Instructions Recorded Confirmed Last Taken Type meloxicam 15 mg tablet 15 mg PO DAILY 09/27/20 02/18/22 Unknown History tramadol 50 mg tablet 50 mg PO DAILY PRN Pain 09/27/20 02/18/22 Unknown History zolpidem 5 mg tablet 5 mg PO BEDTIME PRN Insomnia 08/02/21 02/18/22 Unknown History cholecalciferol (vitamin D3) 25 25 mcg PO DAILY 10/01/21 02/18/22 Unknown History mcg (1,000 unit) capsule Exam Exam Date and Time: May 07, 2022 0945 Pertinent Lab Results Pertinent Lab Results: Laboratory Tests 12/06/21 12/06/21 10:26 10:26 WBC 7.4 Hgb 14.2 Hct 42.7 Plt Count 290 Sodium 139 Potassium 3.9 Chloride 103 Carbon Dioxide 27 BUN 17 H Creatinine 0.84 Narrative Narrative: EKG 08/2021 Vent. Rate : 060 BPM ? ? Atrial Rate : 060 BPM ?? P-R Int : 150 ms? QRS Dur : 082 ms ? ? QT Int : 424 ms ? ? ? P-R-T Axes : 056 042 062 degrees ?? QTc Int : 424 ms ? Normal sinus rhythm Nonspecific T wave abnormality Anterior leads Abnormal ECG When compared with ECG of 16-SEP-2017 10:49, Nonspecific T wave abnormality no longer evident in Inferior leads T-wave inversion in Anterior leads is new Stress ECHO 12/2021 Fidnings : ? At rest images are of adequate quality. LV systolic function is normal with normal wall motion. post exercise images are of adequate quality with monse eoff axis views. Overall augmentation of LV systolic function is good? with no regional wall motion abnormalities. ? Conclusion : ? Stress echo is negative for myocardial effusion Assessment and Plan Assessment Anesthesia Assessment: Chart Reviewed
[2022-05-08] VITALS (12 sets, daily range): BP systolic 121–152; BP diastolic 66–81; PULSE 67–86; RESP 16–18; TEMP 36.1–36.3; O2SAT 94–98; BMI 32.4
--- NOTE | ~2022-05-08 | MM_ITS ---
EXAMINATION: MM MAMMOGRAM GUIDED NEEDLE LOCALIZATION BREAST, LEFT MM NEEDLE LOCALIZATION SPECIMEN FROM THE LEFT BREAST CLINICAL INFORMATION: Sclerosing papilloma on MR biopsy left breast 10/02/2021. Prior history contralateral right breast severely atypical ductal hyperplasia, bordering on DCIS. Family history breast cancer, sister. COMPARISON: MR biopsy and postbiopsy mammography 10/02/2021 TECHNIQUE NEEDLE LOC: Proper informed consent is obtained from the patient after discussion of the procedure, potential risks and complications, and alternatives including declining the procedure today. Patient was given an opportunity for questions. The patient appeared to understand. The patient consented to the procedure and signed the consent form. GUIDANCE: Digital mammography. APPROACH: Cranio-caudal. TARGET: Cylinder shaped biopsy clip marker anterior 12:00 left breast. ANESTHESIA: Carbonated lidocaine 1%: 6 mL. LOCALIZATION MARKER: [place] [employer], 7.5 cm length. The skin is prepped and local anesthesia administered. The needle is positioned and position assessed with mammography. The wire is hooked into position. Mcleod needle protector placed. The patient tolerated the procedure well and had no immediate complication. Procedure results called to chief medical officer (Paty) for Dr. Rivas. TECHNIQUE SPECIMEN RADIOGRAPH: Imaging of the excised specimen is performed using digital mammography in 1 view. FINDINGS SPECIMEN RADIOGRAPH: The specimen shows the distal needle and distal hookwire are delivered intact. Proximal needle sectioned in OR prior to delivery to radiology. The axilla and there are biopsy clip marker is in the specimen adjacent to the localization needle. Results were called to Dr. David Rivas in the operating room at the time of imaging. MM/MM needle loc LT IMPRESSION: 1. Status post left breast needle localization with wire hooked into position. 2. Post operative specimen radiograph obtained.
[2022-05-08] MEDS: Lactated Ringers 1,000 ML 100 ML IVCONT (07:47)
--- NOTE | 2022-05-08 08:12 | MHC.SHP ---
Pre-Procedural Eval Section A Date of Service: 05/08/22 The patient is an INPATIENT: No Changes since office visit: Yes Patient answered all questions; No Cold of Flu in the past 2 weeks, No New Medical Problems and No Changes in Medication The History & Physical has been completed within 30 days and I have reviewed it.: Yes Section B Chief Complaint: breast ca Allergies: Allergies Allergy/AdvReac Type Severity Reaction Status Date / Time latex [LATEX] Allergy Intermediate RASH Verified 02/18/22 15:38 ENVIRONMENTAL Allergy Mild HAYFEVER Uncoded 02/18/22 15:38 Plan Diagnosis/Plan: Unchanged I have reviewed the history and physical and performed a pertinent physical examination on my patient. No changes have occurred unless specified.
--- NOTE | 2022-05-08 08:14 | MHC.SHP ---
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 Relevant Family History (Specify if Yes): No Relevant Social History: None Present Medications: see Short Stay Collaborative assessment Medical History: Significant History (DCIS , compression fx L1, Asthma, HTN) History of Previous Operations: Relevant previous surgery/procedure and date(s) (Breast lumpectomy) Allergies: Allergies Allergy/AdvReac Type Severity Reaction Status Date / Time latex [LATEX] Allergy Intermediate RASH Verified 02/18/22 15:38 ENVIRONMENTAL Allergy Mild HAYFEVER Uncoded 02/18/22 15:38 Review of Systems Sugical H&P ROS: Negative: Constitution, Cardiovascular, Respiratory, Neurological, Psychiatric, Hem-Onc, Allergic/Immunologic, Gastrointestinal, Genitourinary, Musculoskeletal, Integumentary, Endocrine and Eyes/Ears/Nose/Throat Exam Surgical H&P Exam: Normal: HEENT, Normal: Heart, Normal: Lungs, Normal: Extremities, Normal: Abdomen, Normal: Skin and Normal: Neurological Plan Diagnosis/Plan: Unchanged I have reviewed the history and physical and performed a pertinent physical examination on my patient. No changes have occurred unless specified.
--- NOTE | 2022-05-08 08:42 | HO.ANESPROP2 ---
[facility] Active Problems Active Problems: All Active Problems (Updated 02/18/22 @ 16:01 by Aniceto Levy MD) Vision problem (Acute) Anemia (Acute) Restless legs (Acute) Snoring (Acute) Cervical radiculopathy (Acute) Thoracic spondylosis (Acute) Hypersomnia (Acute) DCIS (ductal carcinoma in situ) of breast (Acute) Blood sugar increased (Acute) Otitis externa (Acute) Annual physical exam (Acute) Generalized anxiety disorder (Acute) Dysphagia (Acute) Chest pain (Acute) Constipation (Acute) Impaired glucose tolerance (Acute) Abnormal magnetic resonance imaging of left breast (Acute) Intraductal papilloma of left breast (Acute) Allergic rhinitis (Acute) Breast cancer (Acute) Compression fracture of L2 (Acute) Obesity (BMI 30-39.9) (Acute) Hypercholesterolemia (Acute) Irritable bowel syndrome (Acute) GERD (gastroesophageal reflux disease) (Acute) Asthma (Acute) Hypertension (Acute) Past Medical History Medical History Allergic sinusitis Carpal tunnel syndrome COVID-19 vaccine series completed Insomnia Lumbar degenerative disc disease Migraine Pulmonary nodule Patient : No Family History Family History Father Diabetes Hypertension Myocardial infarction Mother Throat cancer Diabetes Hypertension Breast lump Sister Breast cancer Brother Myocardial infarction CVD (cardiovascular disease) Substance abuse Sister Breast cancer Son Diabetes Family history of problems with anesthesia: No Surgical History Surgical History H/O breast biopsy H/O colonoscopy History of cholecystectomy History of lumpectomy of right breast Status post total abdominal hysterectomy History of Problems with Anesthesia: No Social History Social History Housing: House Alcohol intake: current Alcohol intake frequency: holidays/special occasions only Alcohol type: beer and wine Patient Tobacco Use Status: Never used Tobacco e-Cigarette/Vaping Use: Never Used Second Hand Smoke Exposure: No Use of substances other than those prescribed or required for medical reasons: No Advance Directives: No Advance Directives Information Provided: Yes Current occupational status: employed Cognitive needs: No Hearing needs: No Vision needs: No Meds Allergies Allergy/AdvReac Type Severity Reaction Status Date / Time latex [LATEX] Allergy Intermediate RASH Verified 02/18/22 15:38 ENVIRONMENTAL Allergy Mild HAYFEVER Uncoded 02/18/22 15:38 Active Medications: Current Medications Albuterol Sulfate (Albuterol Sulfate (0.083%) 2.5 Mg/3 Ml Vial.Neb) 2.5 mg INHALE ONCE PRN PRN Reason: Shortness of Breath/Wheezing Lactated Ringer's (Lr) 1,000 mls @ 100 mls/hr IVCONT .Q10H KELLY Last Admin: 05/08/22 07:47 Dose: 100 mls/hr Home Medications Medication Instructions Recorded Confirmed Last Taken Type meloxicam 15 mg tablet 15 mg PO DAILY 09/27/20 02/18/22 Unknown History tramadol 50 mg tablet 50 mg PO DAILY PRN Pain 09/27/20 02/18/22 Unknown History zolpidem 5 mg tablet 5 mg PO BEDTIME PRN Insomnia 08/02/21 02/18/22 Unknown History cholecalciferol (vitamin D3) 25 25 mcg PO DAILY 10/01/21 02/18/22 Unknown History mcg (1,000 unit) capsule Exam Exam Date and Time: May 08, 2022 0842 Height,Weight and Vital Signs: Height 5 ft Weight 75.296 kg Last Vital Signs Temp 97.3 F 05/08/22 07:44 Pulse 67 05/08/22 07:44 Resp 16 05/08/22 07:44 BP 135/72 05/08/22 07:44 Pulse Ox 97 05/08/22 07:44 O2 Del Method 05/08/22 07:44 Airway Mallampati Class: I TM Dist: >3cm Neck ROM: Full Denture: Upper and Lower Heart: rrr Lungs: clear Assessment and Plan Final Anesthetic Review Family History of Problems with Anesthesia: No History of Problems with Anesthesia: No NPO: Yes ASA Class: III Final Preanesthetic Review: No Changes in Pt Med Stat, Meds/Allgs Chart Reviewed, Consent Obtained/Reviewed and Anes Risks/Benef Reviewed Patient Risk: Intermediate Procedure Risk: Low Anesthetic Plan Anesthetic Plan: GA Disposition: Standard PACU
--- NOTE | 2022-05-08 08:44 | PC.NURSE ---
back from needle localization
[2022-05-08] MEDS: Lidocaine HCl 1 % 20 ML VIAL 9 ML SUBCUT (09:01)
[2022-05-08] MEDS: Sodium Bicarbonate 8.4% 50 MEQ/50 ML VIAL SUBCUT (09:02)
--- NOTE | 2022-05-08 10:10 | W.PM.OPN ---
Operative Note Operative Note Date of Service: 05/08/22 Narrative: Preoperative diagnosis: Intraductal papilloma left breast Postoperative diagnosis: same Procedure: left breast lumpectomy with needle localization Surgeon: David Rivas MD Central Sterilization Technician: no physician Anesthesia: general LMA Indications for procedure: 57-year-old female patient presenting with abnormal lesion noted on MRI of the breast. Subsequent biopsy revealed intraductal papilloma. She presents today for wide excision to assure complete removal. Operative findings: Specimen x-ray confirms marking clip within the specimen. Specimen: Left breast lumpectomy Estimated blood loss: 2 mL Complications: none Procedure details: patient was brought to the OR placed in a supine position. After administering general anesthesia, the patient is left breast was prepped with ChloraPrep and draped in a sterile fashion. A surgical time-out was called the consent confirmed. Patient received preoperative antibiotics and Venodyne boots were in place. Local anesthesia consisting of 0.5% Sensorcaine was then infiltrated around the localizing needle. A curvilinear incision was made around the nipple and carried out through subcutaneous tissue. Superior inferior skin flaps created. Dissection was continued superiorly up to the localizing needle. Dissection was then continued to the tip of the needle inferiorly. Medial-lateral dissection was then performed using sharp dissection with a curved Paris scissor. The needle was then cut below the skin and posterior dissection performed again using sharp dissection with a curved Paris scissor the specimen was removed and sent to pathology for further examination. The specimen was marked with a long suture on the lateral margin, short suture on the superior margin, and loop suture on the inferior margin. The wounds were checked for hemostasis with electrocautery. Wounds were then irrigated with saline solution and suctioned dry. Deep breast tissue was closed using interrupted 3-0 Polysorb sutures. Superficial breast tissue and dermis were then reapproximated using interrupted 3-0 Polysorb sutures. Skin was closed using a running subcuticular 4-0 Polysorb suture. Steri-Strips, 2 x 2 gauze and Tegaderm were then applied. The patient tolerated the procedure well. Sponge, instrument, needle counts reported as correct. The patient was transferred to PACU in stable condition.
[2022-05-08] MEDS: oxyCODONE HCl Immed Release 5 MG TABLET PO (11:00)
[2022-05-08] MEDS: Acetaminophen 325 MG TABLET 650 MG PO (11:14)
[2022-05-08] MEDS: ondansetron HCL 4 MG/2 ML VIAL IVPUSH (11:54)
== END 2022-05-08 13:05 | disposition home or self-care (01) ==
PROVIDERS: PCP Internal Medicine; Visit Provider Surgery
PROC: (CPT 19301; principal; 2022-05-08 09:00)
DX: D24.2 Benign neoplasm of left breast (principal); Z85.3 Personal history of malignant neoplasm of breast; N60.22 Fibroadenosis of left breast; N60.82 Other benign mammary dysplasias of left breast; Z80.3 Family history of malignant neoplasm of breast; J45.909 Unspecified asthma, uncomplicated; I10 Essential (primary) hypertension; E78.00 Pure hypercholesterolemia, unspecified; G47.00 Insomnia, unspecified; E66.9 Obesity, unspecified; Z68.33 Body mass index [BMI] 33.0-33.9, adult; Z79.899 Other long term (current) drug therapy; Z91.040 Latex allergy status
CPT/HCPCS: 19301; 19281; 88307; 88329; A4648; J0690; J1100; J2250; J2405; J3010

== ENCOUNTER → 2022-05-21 18:57 | Outpatient (REF) | payer BC, SELFPAY | LOC: HO.SL 18:57 | PROVIDERS: PCP Internal Medicine; Visit Provider Nurse Practitioner Family | DX: R06.83 Snoring (principal); G25.81 Restless legs syndrome | CPT/HCPCS: 95810 ==

== ENCOUNTER 2022-05-27 11:26 | Outpatient (REF) | payer BC, SELFPAY ==
[2022-05-27 12:58] LABS: Alanine Aminotransferase 24 U/L (0-31); Albumin Level 4.3 g/dL (3.5-5.0); Alkaline Phosphatase 86 U/L (39-117); Anion Gap 10 (12-20); Aspartate Amino Transferase 21 U/L (5-31); Bilirubin Total 0.4 mg/dL (0.0-1.0); Blood Urea Nitrogen 20 mg/dL (9-16); Calcium 9.9 mg/dL (8.4-10.2); Carbon Dioxide 29 mmol/L (22-29); Chloride 105 mmol/L (96-108); Cholesterol 179 mg/dL; Estimated Glomerular Filt Rate > 60; Glucose Random 99 mg/dL (60-115); HDL Cholesterol 49 mg/dL; LDL Cholesterol Calculated 110 mg/dl; Potassium 4.4 mmol/L (3.3-5.1); Sodium 140 mmol/L (135-145); Total Protein 6.9 g/dL (6.5-8.0); Triglycerides 100 mg/dL
[2022-05-27 13:02] LABS: Estimated Average Glucose 111 mg/dL; Hemoglobin A1c % 5.5 %
== END 2022-05-27 11:27 | disposition home or self-care (01) ==
LOC: HO.LAB 11:26
PROVIDERS: PCP Internal Medicine; Visit Provider Internal Medicine
DX: E78.00 Pure hypercholesterolemia, unspecified (principal); R73.02 Impaired glucose tolerance (oral)
CPT/HCPCS: 36415; 80053; 80061; 83036

== ENCOUNTER 2022-08-29 09:14 | Outpatient (REF) | payer BC, SELFPAY ==
--- NOTE | ~2022-08-29 | FL_ITS ---
EXAMINATION: FL UPPER GI SERIES AND BARIUM SWALLOW CLINICAL INFORMATION: R13.10 - Dysphagia, unspecified COMPARISON: None TECHNIQUE: Upper GI series and barium swallow are performed using fluoroscopic evaluation in addition to multiple fluoroscopic spot views, including cine images during swallowing. The patient is imaged both upright and prone and using both thick and thin barium sulfate along with effervescent granules. Water siphon test performed. Barium pill challenge also performed. Fluoroscopy time: 1.9 minutes DAP: 19.481 Gycm2 Fluoroscopic spot images: 44 FINDINGS: There is normal esophageal motility. The cervical esophagus shows no definite web or diverticulum, No cervical achalasia. The thoracic esophagus show no obstruction, stricture, or ulceration. There is no hiatal hernia demonstrated. No gastroesophageal reflux. There is prompt transit of the barium pill from mouth to stomach. The stomach shows no thickened folds or ulcer crater or outlet obstruction. The duodenal bulb is pliable and without ulcer crater or scarring. There is a small incidental diverticulum from the medial side descending duodenum. The post bulbar duodenum and the upper jejunal mucosal pattern are unremarkable. FL/FL upper GI w air w Ba Swallow IMPRESSION: -Normal study. No hiatal hernia, reflux, or ulcer. -Small incidental diverticulum descending duodenum.
== END 2022-08-29 09:15 | disposition home or self-care (01) ==
LOC: HO.XRAY 09:14
PROVIDERS: PCP Internal Medicine; Visit Provider Internal Medicine
DX: R13.10 Dysphagia, unspecified (principal)
CPT/HCPCS: 74246

== ENCOUNTER 2022-11-20 09:48 | Outpatient (REF) | payer BC, SELFPAY ==
--- NOTE | ~2022-11-20 | MM_ITS ---
EXAMINATION: BONE DENSITOMETRY CLINICAL INDICATION: Age-related osteoporosis without current pathological fracture. COMPARISON: Previous BD dated 11/12/2019 and baseline BD dated 12/04/2012. TECHNIQUE: Using a [employer] DXA System (software version: 13.1) manufactured by [employer], dual-energy x-ray absorptiometry was performed of the lumbar spine and left hip. The images are of good technical quality. Summary results are attached. FINDINGS: AP SPINE L1-L4: Current: BMD 0.974 g/cm2, Z-score -1.2, T-score -1.7, osteopenia, 0.4% decrease from previous, 14.7% decrease from baseline (<5% change is not significant). Prior: BMD 0.978 g/cm2. Baseline: BMD 1.142 g/cm2. LEFT FEMUR, NECK: Current: BMD 0.892 g/cm2, Z-score -0.3, T-score -1.1, osteopenia. Prior: BMD 0.881 g/cm2. Baseline: BMD 0.996 g/cm2. LEFT FEMUR, TOTAL: Current: BMD 1.024 g/cm2, Z-score 0.5, T-score 0.1, normal, 4.4% increase from previous, 6.9% decrease from baseline (<5% change is not significant). Prior: BMD 0.981 g/cm2. Baseline: BMD 1.100 g/cm2. IDENTIFIED RISK FACTORS: Secondary osteoporosis (early menopause). Hysterectomy. Left oophorectomy. Thiazide. HISTORY OF FRACTURE: None listed. MEDICATIONS: Vitamin D. MM/XR DEXA axial skeleton IMPRESSION: 1. DIAGNOSIS: Osteopenia based on the lowest T-score value of -1.7 in the lumbar spine applying World Health Organization criteria. 2. 10-YEAR FRACTURE RISK PREDICTION, FRAX: Major osteoporotic fracture (clinical spine, forearm, hip or shoulder) 5.8%. Hip fracture 0.3%. 3. Treatment Recommendations: NOF guidelines recommend consideration for treatment in postmenopausal women and men age 50 and older presenting with the following: -A hip or vertebral (clinical or morphometric) fracture. -T-score less than or equal to -2.5 at the femoral neck or spine after appropriate evaluation to exclude secondary causes. -Low bone mass at the hip or spine and a 10-year fracture probability by FRAX of greater than or equal to 3% for hip fracture or greater than or equal to 20% for major osteoporotic fracture based on the [place] adapted WHO algorithm. 4. Other Recommendations: All treatment decisions require clinical judgment and consideration of individual patient factors, including patient preferences, comorbidities, previous drug use, risk factors not captured in the FRAX model (e.g. frailty, falls, vitamin D deficiency, increased bone turnover, interval significant decline in bone density) and possible under or overestimation of fracture risk by FRAX. Additional medical evaluation for secondary cause of low bone mineral density may be appropriate. FUTURE SCAN RECOMMENDATION: People with diagnosed cases of osteoporosis or at high risk for fracture should have regular bone mineral density tests. For patients eligible for Medicare, routine testing is allowed once every 2 years. The testing frequency can be increased to one year for patients who have rapidly progressing disease, those who are receiving or discontinuing medical therapy to restore bone mass, or have additional risk factors.
== END 2022-11-20 09:49 | disposition home or self-care (01) ==
LOC: HO.MAMMO 09:48
PROVIDERS: PCP Internal Medicine; Visit Provider Internal Medicine
DX: Z13.820 Encounter for screening for osteoporosis (principal); M81.0 Age-related osteoporosis without current pathological fracture; S32.020D Wedge compression fracture of second lumbar vertebra, subsequent encounter for fracture with routine healing; Z78.0 Asymptomatic menopausal state
CPT/HCPCS: 77080

== ENCOUNTER 2023-01-28 09:53 | Outpatient (REF) | payer BC, SELFPAY ==
--- NOTE | ~2023-01-28 | MM_ITS ---
EXAMINATION: MM SCREENING DIGITAL BREAST TOMOSYNTHESIS, BILATERAL CLINICAL INFORMATION: Screening. Asymptomatic. Due for yearly. 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 Family history breast cancer, sister. COMPARISON: Multiple prior breast imaging exams, including most recent bilateral mammography 11/17/2020. TECHNIQUE: Digital breast tomosynthesis is performed in both the craniocaudal and mediolateral oblique views along with computer-aided detection (CAD). Synthesized 2D images are generated from the tomosynthesis. FINDINGS: There are scattered areas of fibroglandular density (ACR BI-RADS breast composition Category b). There are no significant masses, abnormal calcifications, or other abnormalities. No architectural abnormality. The axilla are unremarkable. There is some interval minor scarring anterior upper outer left consistent with the lumpectomy. No significant changes. MM/MM tomosynthesis screening BI IMPRESSION: No mammographic evidence of malignancy. ASSESSMENT: BI-RADS 2: Benign RECOMMENDATION: -Routine annual mammography screening. -Additional annual adjunct screening MR breasts as clinical risk factors warrant. This patient's information was entered into a reminder system with a target due date for their next mammogram.
== END 2023-01-28 09:54 | disposition home or self-care (01) ==
LOC: HO.MAMMO 09:53
PROVIDERS: PCP Internal Medicine; Visit Provider Surgery
DX: Z12.31 Encounter for screening mammogram for malignant neoplasm of breast (principal)
CPT/HCPCS: 77063; 77067

== ENCOUNTER → 2023-02-25 11:43 | Outpatient (BNVA) | payer BC, SELFPAY | PROVIDERS: PCP Internal Medicine; Visit Provider Surgery | DX: D24.2 Benign neoplasm of left breast (principal); C50.919 Malignant neoplasm of unspecified site of unspecified female breast ==

== ENCOUNTER 2023-04-21 13:01 | Outpatient (REF) | payer BC, SELFPAY ==
--- NOTE | ~2023-04-21 | MR_ITS ---
EXAMINATION: MR BREAST WITHOUT AND WITH CONTRAST, BILATERAL CLINICAL INFORMATION: High-risk screening. History of right breast cancer treated with lumpectomy and radiation. Family history of breast cancer, sister. History of left breast excision, papilloma, 2021. COMPARISON: MRI 09/13/2021 TECHNIQUE: Imaging was performed with a dedicated breast coil. Prior to the administration of contrast, bilateral axial T1 and bilateral axial T2 weighted sequences were obtained. After the uneventful administration of?8 mL of Gadavist, dynamic contrast-enhanced VIBRANT series through the breasts in the axial plane were performed. Subtracted images were performed and reviewed. A delayed sagittal sequence through both breasts was acquired. Additionally, CAD post-processing, including maximum intensity projections, 3-D reconstructions and kinetic analysis, were performed an independent workstation and reviewed by the interpreting radiologist is a portion of this exam. FINDINGS: The patient's fibroglandular tissue demonstrates moderate background enhancement. LEFT BREAST: Scattered foci of enhancement appear little changed compared to the 2020 exam. Tiny area of nonmass enhancement in the 9:00 position of the left breast, mid depth, measuring 7 mm, is stable compared to the 2020 exam. Post excisional changes noted along the 12:00 axis without associated enhancement. No new suspicious nonmass or mass enhancement. RIGHT BREAST: Stable architectural distortion in the subareolar region consistent with prior history of lumpectomy. Relative decreased background parenchymal enhancement compared to the left compatible with a history of prior radiation treatment. No new suspicious nonmass or mass enhancement. No additional findings on review of the T2-weighted images. There is no suspicious internal mammary chain or axillary adenopathy. Limited views of the chest and abdomen are unremarkable. MR/MR breast BI wo/w con IMPRESSION: No MR specific evidence of new or recurrent malignancy. ASSESSMENT: LEFT BREAST: BI-RADS 2 - Benign Findings. RIGHT BREAST: BI-RADS 2 - Benign Findings. RECOMMENDATIONS: Clinical follow-up. Continued annual mammographic surveillance. Further breast MRI as risk factors dictate.
== END 2023-04-21 13:02 | disposition home or self-care (01) ==
LOC: HO.MRI 13:01
PROVIDERS: PCP Internal Medicine; Visit Provider Surgery
DX: C50.919 Malignant neoplasm of unspecified site of unspecified female breast (principal); N60.92 Unspecified benign mammary dysplasia of left breast; Z91.89 Other specified personal risk factors, not elsewhere classified
CPT/HCPCS: 77049; A9585

== ENCOUNTER 2023-10-22 15:27 | Outpatient (AMB) | payer BC, SELFPAY ==
[2023-10-22 15:29] VITALS: BP 140/86; PULSE 74; O2SAT 98; BMI 33.2
--- NOTE | 2023-10-22 15:29 | MHC.PC.OV ---
Vital Signs 10/22/23 15:29 Height 5 ft Weight 170 lb 0.8 oz BMI 33.2 BP 140/86 H Blood Pressure Location Lt brachial Position Sitting Pulse 74 Pulse Source Pulse Oximeter Pulse Oximetry (%) 98 Oxygen Delivery Method Room Air Intake Visit Reasons: f/u Intake Note: pt states cough [id number] Pie Cutter Required: No Allergies latex [LATEX] Allergy (Intermediate, Verified 10/22/23 15:54) RASH ENVIRONMENTAL Allergy (Mild, Uncoded 10/22/23 15:54) HAYFEVER Medication List - Last Reconciled 10/22/23 by JAIRO Willoughby albuterol sulfate 90 mcg/actuation 2 puffs inhalation Q6H PRN Bifidobacterium infantis (Align) 4 mg PO BEDTIME cholecalciferol (vitamin D3) 25 mcg PO DAILY clotrimazole 1% 1 appl topical BID 4 weeks famotidine (Pepcid) 20 mg PO BEDTIME fexofenadine (Stacey Allergy) 180 mg PO DAILY 90 days fluoxetine 40 mg PO DAILY hydrochlorothiazide 25 mg PO DAILY hydroxyzine pamoate 1 - 2 caps PO BEDTIME PRN lisinopril 5 mg PO DAILY meloxicam 15 mg PO DAILY miconazole nitrate 2% (Zeasorb AF) 1 appl topical BID mirtazapine 15 mg PO BEDTIME montelukast 10 mg PO DAILY prazosin 1 mg PO BEDTIME sennosides (Natural Senna Laxative) 8.6 mg PO BEDTIME PRN simvastatin 5 mg PO BEDTIME tramadol 50 mg PO DAILY PRN Tobacco use date assessed: 10/22/23 Dental Screening Dental Screen Date: 10/22/23 HPI f/u HPI Details Patient is a 58-year-old female who presents today for a routine follow-up. Patient of Dr. Levy. Medical history significant for hypertension, asthma, GERD, IBS, hypercholesterolemia, history of left breast cancer followed by General surgery and Dr. Dennis. Patient reports compliance with medications and denies side effects. Reports cough for the past 2 weeks which is slightly better although still with intermittent wheezing, reports taking NyQuil and DayQuil with no much improvement. Reports negative COVID test recently. No shortness of breath or chest pain. Does not have inhaler. [facility] Medical History At high risk for breast cancer Tinnitus Knee pain, right Hypersomnia Vision problem Anemia Restless legs Snoring COVID-19 vaccine series completed Abnormal magnetic resonance imaging of left breast Chest pain Dysphagia Annual physical exam Otitis externa Blood sugar increased DCIS (ductal carcinoma in situ) of breast Hypersomnia Compression fracture of L2 Insomnia Obesity (BMI 30-39.9) Hypercholesterolemia Lumbar degenerative disc disease Carpal tunnel syndrome Migraine Pulmonary nodule Allergic rhinitis Irritable bowel syndrome GERD (gastroesophageal reflux disease) Asthma Hypertension Breast cancer Allergic sinusitis Cervical radiculopathy Surgical History History of lumpectomy of left breast (05/08/22) H/O colonoscopy H/O breast biopsy Status post total abdominal hysterectomy History of lumpectomy of right breast History of cholecystectomy Family History Father Diabetes Hypertension Myocardial infarction Mother Throat cancer Diabetes Hypertension Breast lump Sister Breast cancer Brother Myocardial infarction CVD (cardiovascular disease) Substance abuse Sister Breast cancer Son Diabetes Social History Household Members: Spouse Housing: House Are you a primary respiratory care program director to a significant other at home: No Do you presently have visiting nurse or other home services: No Alcohol intake: current Alcohol intake frequency: holidays/special occasions only Alcohol type: beer and wine Patient Tobacco Use Status: Never used Tobacco e-Cigarette/Vaping Use: Never Used Second Hand Smoke Exposure: No service: No Current occupational status: employed Current occupational exposures/hazards: No Cognitive needs: No Hearing needs: No Vision needs: No Questionnaire Thrive Questionnaire Date Thrive assessed: 12/20/22 AUDIT C Alcohol Use Questionnaire (AUDIT-C) 1. How often do you have a drink containing alcohol?: Monthly or less 2. How many drinks containing alcohol do you have on a typical day when you are drinking?: 1 or 2 3. How often do you have six or more drinks on one occasion?: Never Total Score: 1 Score Reviewed/Action Taken: No ADELINE-7 AMB Questionnaire ADELINE-7 Date ADELINE - 7 assessed: 12/20/22 Source: Developed by Drs. Chet Park, Ely Monzon, Kali Gonzalez and colleagues, with an educational jocelyne from [employer]. Review of Systems Const Denies body aches, Denies chills, Denies fever(s) and Reports headache(s) (Intermittent migraine) Eyes Denies change in vision ENT Denies dizziness, Denies otalgia, Reports headache(s) (Intermittent migraine), Denies nasal discharge, Denies sinus pain and Denies sore throat Card Denies chest pain, Denies edema, Denies lightheadedness and Denies dyspnea Resp Reports cough, Denies dyspnea and Reports wheezing (Intermittent) GI Denies abdominal pain, Denies constipation, Denies diarrhea, Denies nausea and Denies vomiting Denies dysuria Musc Denies myalgias Skin/Breast Denies rash Neuro Denies dizziness and Reports headache(s) (Intermittent migraine) Aller/Immun Reports wheezing (Intermittent) Physical exam (Primary Care) Vital Signs: Last Vital Signs Pulse 74 10/22/23 15:29 BP 140/86 H 10/22/23 15:29 Pulse Ox 98 10/22/23 15:29 Oxygen Delivery Method Room Air 10/22/23 15:29 BMI result Body Mass Index 33.2 Tobacco/Smoking Status: Tobacco use Status Tobacco use date assessed 10/22/23 10/22/23 15:30 Patient Tobacco Use Status Never used Tobacco 10/22/23 15:30 e-Cigarette/Vaping Use Never Used 10/22/23 15:30 Thrive Assessment: Date of Thrive Assessment Date Thrive assessed 12/20/22 10/22/23 15:30 Const General: cooperative and no acute distress Orientation/consciousness: patient oriented x3 HENMT Head: Yes normocephalic and Yes atraumatic Face and sinus: Yes sinuses nontender Mouth: oropharynx normal and moist mucous membranes Throat: Yes posterior oropharynx normal Eyes General: appearance normal, both eyes and all related structures Neck Neck: Yes normal visual inspection, Yes full ROM and Yes no lymphadenopathy Resp Effort & Inspection: normal respiratory effort, able to speak in complete sentences and Actively coughing Quality: dry Auscultation: clear to auscultation bilaterally, no crackles, no rales, no rhonchi and no wheezes Cardio Rate: regular rate Rhythm: regular rhythm Heart sounds: S1 normal heart sound present and S2 normal heart sound present GI Auscultation: normal bowel sounds Skin General skin exam: no rashes or lesions noted Neuro General: patient oriented x3 Gait exam (Neuro): Normal gait present Extrem General: Yes full ROM and No edema Assessment and Plan Assessment & Plan (1) Impaired glucose tolerance: Code(s): R73.02 - Impaired glucose tolerance (oral) Plan: A1c ordered (2) Hypercholesterolemia: Code(s): E78.00 - Pure hypercholesterolemia, unspecified Plan: Continue simvastatin Low-cholesterol diet Due for blood work (3) GERD (gastroesophageal reflux disease): Code(s): K21.9 - Gastro-esophageal reflux disease without esophagitis Qualifiers: Esophagitis presence: without esophagitis Qualified Code(s): K21.9 - Gastro-esophageal reflux disease without esophagitis Plan: Continue Pepcid Avoid GERD trigger foods Do not lay down 2-3 hours after evening meal (4) Asthma: Code(s): J45.909 - Unspecified asthma, uncomplicated Qualifiers: Asthma severity: mild Asthma persistence: intermittent Asthma complication type: uncomplicated Qualified Code(s): J45.20 - Mild intermittent asthma, uncomplicated Plan: Suspect asthma exacerbation Will treat with albuterol inhaler p.r.n. and prednisone for 5 days Notify office if no improvement after finishing treatment (5) Hypertension: Code(s): I10 - Essential (primary) hypertension Qualifiers: Hypertension type: essential hypertension Qualified Code(s): I10 - Essential (primary) hypertension Plan: Goal BP equal or less than 140/90 Continue lisinopril, hydrochlorothiazide Low-sodium diet and weight loss Orders: Orders TSH reflex Free T4 Today E78.00 - Pure hypercholesterolemia, unspecified Lipid Panel Today E78.00 - Pure hypercholesterolemia, unspecified Comprehensive Mittie. Panel Fast Today R73.02 - Impaired glucose tolerance (oral) Hemoglobin A1c Today R73.02 - Impaired glucose tolerance (oral) Medications: New prednisone 40 mg (2 x 20 mg) PO DAILY 5 days 10 tabs 0RF J45.909 - Unspecified asthma, uncomplicated Refilled albuterol sulfate 90 mcg/actuation 2 puffs inhalation Q6H PRN 18 ea 2RF for muscle spasm J45.20 - Mild intermittent asthma, uncomplicated Coding Level of Care Code Est Pt Level 4 (27453) Diagnoses Impaired glucose tolerance R73.02 Hypercholesterolemia E78.00 Gastroesophageal reflux disease without esophagitis K21.9 Esophagitis presence: without esophagitis Mild intermittent asthma without complication J45.20 Asthma severity: mild Asthma persistence: intermittent Asthma complication type: uncomplicated Essential hypertension I10 Hypertension type: essential hypertension
== END 2023-10-22 16:06 | disposition home or self-care (01) ==
PROVIDERS: PCP Internal Medicine; Visit Provider Nurse Practitioner Family
DX: R73.02 Impaired glucose tolerance (oral) (principal); E78.00 Pure hypercholesterolemia, unspecified; K21.9 Gastro-esophageal reflux disease without esophagitis; J45.20 Mild intermittent asthma, uncomplicated; I10 Essential (primary) hypertension
CPT/HCPCS: 99214

== ENCOUNTER 2024-02-03 09:50 | Outpatient (REF) | payer BC, SELFPAY ==
--- NOTE | ~2024-02-03 | MM_ITS ---
EXAMINATION: MM SCREENING DIGITAL BREAST TOMOSYNTHESIS, BILATERAL CLINICAL INFORMATION: Screening. Asymptomatic. The patient has a history of RIGHT breast surgery in 2012 for borderline DCIS and a history of LEFT breast surgery for a sclerosing papilloma, atypical lobular hyperplasia and complex sclerosing lesion. COMPARISON: Mammography: This study is compared with prior exams dating back to 2019. TECHNIQUE: Digital breast tomosynthesis is performed in both the craniocaudal and mediolateral oblique views along with computer-aided detection (CAD). Synthesized 2D images are generated from the tomosynthesis. FINDINGS: The breasts are heterogeneously dense, which may obscure small masses (ACR BI-RADS breast composition Category c). There are no significant masses, abnormal calcifications, or other abnormalities. There are postsurgical changes present in each breast. MM/MM tomosynthesis screening BI IMPRESSION: No mammographic evidence of malignancy. ASSESSMENT: BI-RADS BI-RADS 2 - Benign Findings RECOMMENDATION: Routine annual mammography screening. 1 year F/U This examination should not preclude the clinical evaluation of a suspicious palpable abnormality. This patient's information was entered into a reminder system with a target due date for their next mammogram.
== END 2024-02-03 09:51 | disposition home or self-care (01) ==
LOC: HO.MAMMO 09:50
PROVIDERS: PCP Internal Medicine; Visit Provider Internal Medicine
DX: Z12.31 Encounter for screening mammogram for malignant neoplasm of breast (principal)
CPT/HCPCS: 77063; 77067

== ENCOUNTER → 2024-02-03 10:00 | Outpatient (BNV) | payer BC, SELFPAY | PROVIDERS: PCP Internal Medicine; Visit Provider Radiology Diagnostic Radiology | DX: Z12.31 Encounter for screening mammogram for malignant neoplasm of breast (principal) | CPT/HCPCS: 77063; 77067 ==

== ENCOUNTER 2024-03-02 10:04 | Outpatient (REF) | payer BC, SELFPAY ==
[2024-03-02 10:18] LABS: MANUAL DIFF FLAG NO
[2024-03-02 11:14] LABS: Basophils Absolute Auto 0.1 X10*3/uL (0.0-0.2); Basophils Percent Auto 0.8 % (0-2); Eosinophils Absolute Auto 0.2 X10*3/uL (0.0-0.4); Eosinophils Percent Auto 2.6 % (0-4); Hematocrit 42.5 % (37.0-47.0); Hemoglobin 14.3 g/dl (12.0-16.0); Imm Gran Abs Auto 0.03 X10*3/uL (0.00-0.03); Imm Gran Pct Auto 0.4 % (0.0-0.4); Lymphocytes Percent Auto 26.9 % (20-40); Mean Corpuscular HGB Conc 33.6 g/dl (31.0-35.0); Mean Corpuscular Hemoglobin 28.4 pg (27.0-33.0); Mean Corpuscular Volume 84.3 fL (80.0-98.0); Monocytes Absolute Auto 0.7 X10*3/uL (0.1-1.2); Monocytes Percent Auto 9.3 % (2-11); Neutrophils Absolute Auto 4.4 x10*3/uL (2.0-8.3); Platelet Count 257 X10*3/uL (160-400); Red Blood Count 5.04 X10*6/uL (4.20-5.50); White Blood Count 7.3 X10*3/uL (4.8-10.8)
[2024-03-02 11:57] LABS: Alanine Aminotransferase 22 U/L (0-31); Albumin Level 4.2 g/dL (3.5-5.0); Alkaline Phosphatase 95 U/L (39-117); Anion Gap 13 (12-20); Aspartate Amino Transferase 18 U/L (5-31); Bilirubin Total 0.5 mg/dL (0.0-1.0); Blood Urea Nitrogen 14 mg/dL (9-16); Calcium 9.9 mg/dL (8.4-10.2); Carbon Dioxide 31 mmol/L (22-29); Chloride 103 mmol/L (96-108); Cholesterol 198 mg/dL (<200); Estimated Glomerular Filt Rate > 60; Glucose Random 102 mg/dL (60-115); HDL Cholesterol 52 mg/dL (>40); LDL Cholesterol Calculated 118 mg/dL (<100); Potassium 3.9 mmol/L (3.3-5.1); Sodium 143 mmol/L (135-145); Total Protein 7.3 g/dL (6.5-8.0); Triglycerides 140 mg/dL (<150)
[2024-03-02 12:08] LABS: Folate 6.2 ng/mL (> or = 4.0); Vitamin B12 340 pg/mL (200-900)
[2024-03-02 12:31] LABS: Free T4 (Free Thyroxine) 1.02 ng/dL (0.71-1.85); Thyroid Stimulating Hormone 1.61 uIU/mL (0.32-4.0); Vitamin D 25-OH Total 41.9 ng/mL (>30)
== END 2024-03-02 10:05 | disposition home or self-care (01) ==
LOC: HO.LAB 10:04
PROVIDERS: PCP Internal Medicine; Visit Provider Internal Medicine
DX: E78.00 Pure hypercholesterolemia, unspecified (principal)
CPT/HCPCS: 36415; 80053; 80061; 82306; 82607; 82746; 84439; 84443; 85025

== ENCOUNTER 2024-03-25 10:39 | Outpatient (AMB) | payer BC, SELFPAY ==
--- NOTE | 2024-03-25 10:45 | A.OFFVIS_ITS ---
Vital Signs 03/25/24 10:56 Height 5 ft Weight 171 lb BMI 33.4 BP 140/67 H Blood Pressure Location Lt brachial Position Sitting Pulse 76 Intake Visit Reasons: Yearly Breast Exam Intake Note: Patient is seen in office for yearly breast exam. 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 Accompanied by: Self / Same As Patient Allergies latex [LATEX] Allergy (Intermediate, Verified 03/25/24 10:51) RASH ENVIRONMENTAL Allergy (Mild, Uncoded 03/25/24 10:51) HAYFEVER Medication List - Last Reconciled 03/25/24 by David Rivas MD albuterol sulfate 90 mcg/actuation 2 puffs inhalation Q6H PRN bupropion HCl XL 150 mg PO QAM cholecalciferol (vitamin D3) 25 mcg PO DAILY clotrimazole 1% 1 appl topical BID 4 weeks famotidine (Pepcid) 20 mg PO BEDTIME fluoxetine 40 mg PO DAILY hydrochlorothiazide 25 mg PO DAILY hydroxyzine pamoate 1 - 2 caps PO BEDTIME PRN lisinopril 5 mg PO DAILY mirtazapine 15 mg PO BEDTIME montelukast 10 mg PO DAILY prazosin 1 mg PO BEDTIME simvastatin 5 mg PO BEDTIME tramadol 50 mg PO DAILY PRN HPI Comments Details: 58-year-old female patient with a prior history of ductal carcinoma in situ right breast returning for follow-up breast examination.? She is a former patient of Dr. Will found on right breast stereotactic guided core biopsy to have atypical ductal hyperplasia.? She subsequently underwent a right breast lumpectomy with needle localization on 10/19/2012 which revealed multifocal ductal carcinoma in situ with clear margins.? Breast MRI was done for further assessment of the multifocality but was somewhat difficult to interpret.? She underwent radiation therapy which was completed in 02/08/2013.? She did develop some lymphedema in the breast which intermittently is causing some discomfort.? She denied lymphedema in the arm.? Her family history is significant for 1 full sister and 1/2 sister with breast cancer.? BRCA testing was performed and negative.? A mammogram on 11/17/2020 revealed no significant changes from the prior study (BI-RADS 2:? Benign).? Her lifetime risk of breast cancer was determined to be 31%, well above the 20% threshold placing her at high risk for recurrent breast cancer.? On 09/13/2021 she underwent MRI of the breast. This revealed a non mass enhancement measuring 0.7 cm in the left breast at the 12 o'clock position. This was felt to be suspicious an MR guided biopsy recommended. She underwent MR guided biopsy on 10/02/2021. Pathology revealed sclerosing papilloma, no atypia or carcinoma was seen. The papilloma was present in 1 tissue fragment in each block of tissue measuring up to 4 mm in greatest diameter. 05/08/2022: Left breast lumpectomy with needle localization. Path revealed: Breast, left, lumpectomy with needle localization: - Residual sclerosing papilloma; margins uninvolved; negative for atypia or malignancy. - Background breast parenchyma with prior biopsy site changes, atypical lobular hyperplasia (ALH), radial sclerosing lesion, sclerosing adenosis and papillary cystic apocrine metaplasia. Her last mammogram dated 02/03/2024 revealed no mammographic evidence of malignancy (BI-RADS 2). Her latest breast MRI of 04/21/2023 revealed no MR specific evidence of malignancy (BI-RADS 2). [facility] Medical History (Updated 03/25/24 @ 11:07 by David Rivas MD) At high risk for breast cancer Tinnitus Knee pain, right Hypersomnia Vision problem Anemia Restless legs Snoring COVID-19 vaccine series completed Abnormal magnetic resonance imaging of left breast Chest pain Dysphagia Annual physical exam Otitis externa Blood sugar increased DCIS (ductal carcinoma in situ) of breast Hypersomnia Compression fracture of L2 Insomnia Obesity (BMI 30-39.9) Hypercholesterolemia Lumbar degenerative disc disease Carpal tunnel syndrome Migraine Pulmonary nodule Allergic rhinitis Irritable bowel syndrome GERD (gastroesophageal reflux disease) Asthma Hypertension Breast cancer Allergic sinusitis Cervical radiculopathy Surgical History History of lumpectomy of left breast (05/08/22) H/O colonoscopy H/O breast biopsy Status post total abdominal hysterectomy History of lumpectomy of right breast History of cholecystectomy Family History Father Diabetes Hypertension Myocardial infarction Mother Throat cancer Diabetes Hypertension Breast lump Sister Breast cancer Brother Myocardial infarction CVD (cardiovascular disease) Substance abuse Sister Breast cancer Son Diabetes Social History Household Members: Spouse Housing: House Are you a primary care connector to a significant other at home: No Do you presently have visiting nurse or other home services: No Alcohol intake: current Alcohol intake frequency: holidays/special occasions only Alcohol type: beer and wine Patient Tobacco Use Status: Never used Tobacco e-Cigarette/Vaping Use: Never Used Second Hand Smoke Exposure: No service: No Current occupational status: employed Current occupational exposures/hazards: No Cognitive needs: No Hearing needs: No Vision needs: No Review of Systems Const All systems reviewed & are unremarkable except as noted in HPI and below Resp Denies chest congestion, Denies cough and Denies stridor Denies nipple discharge Skin/Breast Details: Bruising in the left breast following MR guided core biopsy. Reports bleeding lesions, Denies breast swelling, Reports breast skin changes, Denies breast pain, Denies breast mass, Denies change in breast shape and Denies nipple discharge You/Lymph Denies lymphadenopathy Physical Exam Vital Signs: Last Vital Signs Pulse 76 03/25/24 10:56 BP 140/67 H 03/25/24 10:56 BMI result Body Mass Index 33.4 Const General: healthy appearing and no acute distress Nutritional Appearance: well nourished Orientation/consciousness: patient oriented x3 Limitations: no limitations Chest Other: Well-healed incision in the left breast, slight tenderness to palpation throughout the breast especially in the lower quadrants. No skin change, nipple discharge, palpable mass, or enlarged lymph nodes. Right breast no skin change, nipple discharge, palpable mass, or enlarged lymph nodes. Tenderness also noted in the lower quadrants and lateral axilla. Axillary tenderness appears to be muscular. Resp Effort & Inspection: normal respiratory effort, no audible wheezes, no cough and no respiratory distress GI Inspection: Yes normal to inspection Skin General skin exam: no rashes or lesions noted Neuro General: patient oriented x3 Extrem General: No edema Assessment & Plan Assessment & Plan (1) Atypical hyperplasia of left breast: Comment: 05/08/2022 Code(s): N60.92 - Unspecified benign mammary dysplasia of left breast Category: Medical (2) At high risk for breast cancer: Code(s): Z91.89 - Other specified personal risk factors, not elsewhere classified Category: Medical Plan Patient returns for follow-up breast examination after previous history of right breast DCIS and left breast atypical ductal hyperplasia. Examination today reveals no evidence of recurrence disease in either breast. Her most recent mammogram of 02/03/2024 reveals no mammographic evidence of malignancy (BI-RADS 2). Her last breast MRI of 04/21/2023 revealed no MR specific evidence of malignancy (BI-RADS 2 bilateral). I have asked her to return in 1 year for follow-up examination. She should call sooner for any new concerns. Orders: Orders MR breast BI wo/w con 05/10/24 N60.92 - Unspecified benign mammary dysplasia of left breast, Z91.89 - Other specified personal risk factors, not elsewhere classified Coding Level of Care Code Est Pt Level 3 (63413) Diagnoses Atypical hyperplasia of left breast N60.92 At high risk for breast cancer Z91.89
[2024-03-25 10:56] VITALS: BP 140/67; PULSE 76; BMI 33.4
== END 2024-03-25 11:08 | disposition home or self-care (01) ==
PROVIDERS: PCP Internal Medicine; Visit Provider Surgery
DX: N60.92 Unspecified benign mammary dysplasia of left breast (principal); Z91.89 Other specified personal risk factors, not elsewhere classified
CPT/HCPCS: 99213

== ENCOUNTER → 2024-03-25 10:39 | Outpatient (BNVA) | payer BC, SELFPAY | PROVIDERS: PCP Internal Medicine; Visit Provider Surgery ==

== ENCOUNTER 2024-04-22 11:28 | Outpatient (AMB) | payer BC, SELFPAY ==
[2024-04-22 11:31] VITALS: BP 152/82; PULSE 80; O2SAT 98; BMI 33.6
--- NOTE | 2024-04-22 11:31 | A.OFFPC_ITS ---
Vital Signs 3 04/22/24 11:31 Height 5 ft Weight 172 lb BMI 33.6 BP 152/82 H Blood Pressure Location Lt brachial Position Sitting Pulse 80 Pulse Source Pulse Oximeter Pulse Oximetry (%) 98 Oxygen Delivery Method Room Air Intake Visit Reasons: Hypertension Allergies latex [LATEX] Allergy (Intermediate, Verified 04/22/24 11:31) RASH ENVIRONMENTAL Allergy (Mild, Uncoded 04/22/24 11:31) HAYFEVER Tobacco use date assessed: 04/22/24 Dental Screening Dental Screen Date: 04/22/24 Did you have a dental visit in the last 12 months?: Yes Did you have a dental problem in the last 6 months where you did not have access to dental care?: No Was dental information given to patient?: Patient has dentist HPI Hypertension 2 HPI0 Details 58-year-old obese female with a history of breast cancer impaired glucose tolerance hypercholesterolemia GERD asthma hypertension and generalized anxiety disorder last seen in 02/27/2023. Patient's mammogram is up-to-date 01/2024. Colonoscopy last done in March 2017 patient continues to follow-up with the surgeon for breast exam 03/29/2024. cold 1 l month ago and cough- taking flonase post nasal drip has dogs at home. has been using the albuterol3 x a day. fall twice bathtub, 2 months ago and stairs- - states . pain left uuper back and lower back pain- no bruise. deny passing away. - recent change on stairs deny syncope , dizziness- misstep sustaine bruise on the L arm and pain on the L [facility] Medical History (Updated 04/22/24 @ 12:09 by Aniceto Levy MD) At high risk for breast cancer Tinnitus Knee pain, right Hypersomnia Vision problem Anemia Restless legs Snoring COVID-19 vaccine series completed Abnormal magnetic resonance imaging of left breast Chest pain Dysphagia Annual physical exam Otitis externa Blood sugar increased DCIS (ductal carcinoma in situ) of breast Hypersomnia Compression fracture of L2 Insomnia Obesity (BMI 30-39.9) Hypercholesterolemia Lumbar degenerative disc disease Carpal tunnel syndrome Migraine Pulmonary nodule Allergic rhinitis Irritable bowel syndrome GERD (gastroesophageal reflux disease) Asthma Hypertension Breast cancer Allergic sinusitis Cervical radiculopathy Surgical History History of lumpectomy of left breast (05/08/22) H/O colonoscopy H/O breast biopsy Status post total abdominal hysterectomy History of lumpectomy of right breast History of cholecystectomy Family History Father Diabetes Hypertension Myocardial infarction Mother Throat cancer Diabetes Hypertension Breast lump Sister Breast cancer Brother Myocardial infarction CVD (cardiovascular disease) Substance abuse Sister Breast cancer Son Diabetes Social History Household Members: Spouse Housing: House Are you a primary hemodialysis patient care specialist to a significant other at home: No Do you presently have visiting nurse or other home services: No Alcohol intake: current Alcohol intake frequency: holidays/special occasions only Alcohol type: beer and wine Patient Tobacco Use Status: Never used Tobacco e-Cigarette/Vaping Use: Never Used Second Hand Smoke Exposure: No service: No Current occupational status: employed Current occupational exposures/hazards: No Cognitive needs: No Hearing needs: No Vision needs: No Questionnaire PHQ-9 Over the last 2 weeks, how often have you been bothered by any of the following problems? 1. Little interest or pleasure in doing things: more than half the days 2. Feeling down, depressed, or hopeless: more than half the days 3. Trouble falling or staying asleep, or sleeping too much: more than half the days 4. Feeling tired or having little energy: more than half the days 5. Poor appetite or overeating: not at all 6. Feeling bad about yourself - or that you are a failure or have let yourself or your family down: not at all 7. Trouble concentrating on things, such as reading the newspaper or watching television: not at all 8. Moving or speaking so slowly that other people could have noticed. Or the opposite - being so fidgety or restless that you have been moving around a lot more than usual: not at all 9. Thoughts that you would be better off or of hurting yourself in some way: not at all Total score: 8 Depression Screening Interpretation: Positive Depression Screening Done: Yes Source: Developed by Drs. Chet Park, Ely Monzon, Kali Gonzalez and colleagues, with an educational jocelyne from [email or web address]. Thrive Questionnaire Date Thrive assessed: 04/22/24 I am a: Patient What is your living situation today?: I have a steady place to live Within the past 12 months, did the food you bought not last and you didn't have the money to get more?: Never true Within the past 12 months, did you worry whether your food would run out before you got money to buy more?: Never true Do you have trouble paying for medicines?: No Do you have trouble getting transportation to medical appointments?: No Do you have trouble paying your heating and electricity bill?: No Do you have trouble taking care of your child, family member or friend?: No Do you have trouble with day-to-day activities such as bathing, preparing meals, shopping, managing finances, etc.?: No Are you currently unemployed and looking for a job?: No Are you interested in more education?: No Currently or been in a relationship where the following occur: no concerns reported THRIVE Score: 0 AUDIT C Alcohol Use Questionnaire (AUDIT-C) 1. How often do you have a drink containing alcohol?: Monthly or less 2. How many drinks containing alcohol do you have on a typical day when you are drinking?: 1 or 2 3. How often do you have six or more drinks on one occasion?: Never Total Score: 1 Score Reviewed/Action Taken: No ADELINE-7 AMB Questionnaire ADELINE-7 Date ADELINE - 7 assessed: 04/22/24 Feeling nervous, anxious, or on edge: 0 = Not at all Not being able to stop or control worryin = Not at all Worrying too much about different things: 0 = Not at all Trouble relaxin = Not at all Being so restless that it is hard to sit still: 0 = Not at all Becoming easily annoyed or irritable: 0 = Not at all Feeling afraid as if something awful might happen: 0 = Not at all Total ADELINE-7 score (0-4 normal; 5-9 mild; 10-14 moderate; 15-21 severe): 0 Source: Developed by Drs. Chet Park, Ely Monzon, Kali Gonzalez and colleagues, with an educational jocelyne from [email or web address]. Physical exam (Primary Care) Vital Signs: Last Vital Signs Pulse 80 04/22/24 11:31 BP 152/82 H 04/22/24 11:31 Pulse Ox 98 04/22/24 11:31 Oxygen Delivery Method Room Air 04/22/24 11:31 BMI result Body Mass Index 33.6 Tobacco/Smoking Status: Tobacco use Status Tobacco use date assessed 04/22/24 04/22/24 11:35 Patient Tobacco Use Status Never used Tobacco 04/22/24 11:35 e-Cigarette/Vaping Use Never Used 04/22/24 11:35 PHQ-9: PHQ-9 Score PHQ-9: Total score 8 04/22/24 11:55 Depression Screening Interpretation: Positive Thrive Assessment: Date of Thrive Assessment Date Thrive assessed 04/22/24 04/22/24 11:35 Currently or been in a relationship where the following occur: no concerns reported Const General: alert; No acute distress Eyes Conjunctivae: conjunctivae normal Resp Auscultation: clear to auscultation bilaterally Cardio Rate: regular rate Rhythm: regular rhythm GI Inspection: Yes normal to inspection Extrem General: Yes normal to inspection and No edema Shoulder/upper arm images: 2 1. No Erythema 2 cm round hematoma Results AMB Hemoglobin A1c 2 AMB Hemoglobin A1c 5.6 % Last Edit by Deloris Gamino CMA on 04/22/24 11 :59 Assessment and Plan Assessment & Plan (1) Breast cancer: Comment: July [address] Will and Dr. Dennis Code(s): C50.919 - Malignant neoplasm of unspecified site of unspecified female breast Plan: Patient is up-to-date with mammogram. (2) Intraductal papilloma of left breast: Comment: Left breast lumpectomy May [address] Rivas Code(s): D24.2 - Benign neoplasm of left breast Plan: Continue follow-up with Dr. Rivas for exams. (3) Hypertension: Code(s): I10 - Essential (primary) hypertension Qualifiers: Hypertension type: essential hypertension Qualified Code(s): I10 - Essential (primary) hypertension Plan: Continue with blood pressure medication. Decrease salt intake and exercise patient is on lisinopril 5 mg once a day prazosin 1 mg at bedtime and hydrochlorothiazide 25 mg once a day admits missing med.- advised to monitor the BP (4) Asthma: Code(s): J45.909 - Unspecified asthma, uncomplicated Qualifiers: Asthma severity: mild Asthma persistence: intermittent Asthma complication type: uncomplicated Qualified Code(s): J45.20 - Mild intermittent asthma, uncomplicated Plan: Albuterol inhaler continue as needed as with montelukast. addq gayle for better control (5) GERD (gastroesophageal reflux disease): Code(s): K21.9 - Gastro-esophageal reflux disease without esophagitis Qualifiers: Esophagitis presence: without esophagitis Qualified Code(s): K21.9 - Gastro-esophageal reflux disease without esophagitis Plan: Avoid the foods that causes that usually spicy foods, tomato products, juices, coffee, soda and foods that your sensitive to. After eating do not lie down, allow 3-4 hours before in lie down. And keep the head of bed above 30 degrees to avoid the acid from going up. Takes famotidine 20 mg at bedtime (6) Hypercholesterolemia: Code(s): E78.00 - Pure hypercholesterolemia, unspecified Plan: Avoid fried foods, chicken skin, eggs, butter margarine, pastries and meat. Be it pork or beef they have a lot of cholesterol (7) Obesity (BMI 30-39.9): Code(s): E66.9 - Obesity, unspecified Plan: diet and exercise (8) Generalized anxiety disorder: Comment: Counselling and psychiatry [facility] Code(s): F41.1 - Generalized anxiety disorder Plan: Continue with fluoxetine mirtazapine on prazosin and Bue per prior (9) Fall: Comment: 02/2024 Code(s): W19.XXXA - Unspecified fall, initial encounter Plan: Discussed with the patient to place handlebars on the bathroom. Concern about osteopenia (10) Upper back pain on left side: Code(s): M54.9 - Dorsalgia, unspecified Plan: X-ray request (11) Low back pain: Code(s): M54.50 - Low back pain, unspecified Plan: X-ray request (12) Left arm pain: Code(s): M79.602 - Pain in left arm Plan: X-ray requested Orders: Orders 2 XR lumbar spine 2-3V Today M54.50 - Low back pain, unspecified XR humerus LT Today M79.602 - Pain in left arm AMB Hemoglobin A1c Today Z13.9 - Encounter for screening, unspecified XR ribs LT min 3V w CXR1V Today M54.9 - Dorsalgia, unspecified Medications: New 2 beclomethasone dipropionate 80 mcg/actuation (Qvar RediHaler) administer with spacer 2 inhalations inhalation BID 30 days 10.6 grams 4RF J45.20 - Mild intermittent asthma, uncomplicated Coding Level of Care Code Est Pt Level 4 (53316) Diagnoses Breast cancer C50.919 Intraductal papilloma of left breast D24.2 Essential hypertension I10 Hypertension type: essential hypertension Mild intermittent asthma without complication J45.20 Asthma severity: mild Asthma persistence: intermittent Asthma complication type: uncomplicated Gastroesophageal reflux disease without esophagitis K21.9 Esophagitis presence: without esophagitis Hypercholesterolemia E78.00 Obesity (BMI 30-39.9) E66.9 Generalized anxiety disorder F41.1 Fall W19.XXXA Upper back pain on left side M54.9 Low back pain M54.50 Left arm pain M79.602
== END 2024-04-22 12:14 | disposition home or self-care (01) ==
PROVIDERS: PCP Internal Medicine; Visit Provider Internal Medicine
DX: Z13.9 Encounter for screening, unspecified (principal)
CPT/HCPCS: 83036; 99214

== ENCOUNTER 2024-04-22 12:21 | Outpatient (REF) | payer BC, SELFPAY ==
--- NOTE | ~2024-04-22 | XR_ITS ---
EXAMINATION: XR RIBS, LEFT WITH PA CHEST CLINICAL INFORMATION: Dorsalgia. COMPARISON: Chest radiograph dated 08/22/2021. TECHNIQUE: 3 views of the left ribs were obtained, together with a PA view of the chest. FINDINGS: Lungs are clear. No consolidation, pneumothorax, or pleural effusion. The cardiomediastinal silhouette and pulmonary vasculature are normal. Osseous structures are unremarkable. The ribs are intact. No fractures are identified. XR/XR ribs LT min 3V w CXR1V IMPRESSION: Unremarkable examination.
--- NOTE | ~2024-04-22 | XR_ITS ---
EXAMINATION: XR LUMBOSACRAL SPINE CLINICAL INFORMATION: Lower back pain. COMPARISON: None available. TECHNIQUE: AP and lateral views of the lumbar spine and lateral view of the lumbosacral junction. FINDINGS: There is bony demineralization. There is a slight thoracolumbar levoscoliosis. The lower thoracic and lumbar disc spaces are well-maintained. No acute fracture or spondylolisthesis is seen. There is anterior spondylosis of the L4 upper endplate. The posterior elements are intact. There is facet arthropathy, most pronounced at L5-S1. There are aortoiliac atherosclerotic calcifications. There are abdominal surgical clips. XR/XR lumbar spine 2-3V IMPRESSION: 1. No acute fracture or spondylolisthesis is seen. 2. The lower thoracic and lumbar disc spaces are well-maintained. 3. There is facet arthropathy, most pronounced at L5-S1.
--- NOTE | ~2024-04-22 | XR_ITS ---
EXAMINATION: XR HUMERUS, LEFT CLINICAL INFORMATION: Pain. COMPARISON: None available. TECHNIQUE: AP and lateral views of the left humerus. FINDINGS: The bones and soft tissues are normal. No fracture. Imaged portions of the shoulder and elbow are unremarkable. XR/XR humerus LT IMPRESSION: Normal left humerus.
== END 2024-04-22 12:22 | disposition home or self-care (01) ==
LOC: HO.XRAY 12:21
PROVIDERS: PCP Internal Medicine; Visit Provider Internal Medicine
DX: M79.602 Pain in left arm (principal); M54.9 Dorsalgia, unspecified; M54.50 Low back pain, unspecified
CPT/HCPCS: 71101; 72100; 73060

== ENCOUNTER 2024-09-14 10:29 | Outpatient (AMB) | payer BC, SELFPAY ==
--- NOTE | 2024-09-14 10:40 | A.OFFPC_ITS ---
Vital Signs 09/14/24 10:42 Height 5 ft Weight 76.204 kg BMI 32.8 BP 126/62 Blood Pressure Location Lt brachial Position Sitting Pulse 74 Pulse Source Pulse Oximeter Pulse Oximetry (%) 97 Oxygen Delivery Method Room Air Intake Visit Reasons: HTN, Asthma Allergies latex [LATEX] Allergy (Intermediate, Verified 09/14/24 10:43) RASH ENVIRONMENTAL Allergy (Mild, Uncoded 09/14/24 10:43) HAYFEVER Medication List - Last Reconciled 09/14/24 by Aniceto Levy MD albuterol sulfate 90 mcg/actuation 2 puffs inhalation Q6H PRN beclomethasone dipropionate 80 mcg/actuation (Qvar RediHaler) 2 inhalations inhalation BID 30 days bupropion HCl XL 150 mg PO QAM cholecalciferol (vitamin D3) 25 mcg PO DAILY clotrimazole 1% 1 appl topical BID 4 weeks famotidine (Pepcid) 20 mg PO BEDTIME fluoxetine 40 mg PO DAILY hydrochlorothiazide 25 mg PO DAILY hydroxyzine pamoate 1 - 2 caps PO BEDTIME PRN lisinopril 5 mg PO DAILY mirtazapine 15 mg PO BEDTIME montelukast 10 mg PO DAILY prazosin 1 mg PO BEDTIME simvastatin 5 mg PO BEDTIME tramadol 50 mg PO DAILY PRN Tobacco use date assessed: 04/22/24 Dental Screening Dental Screen Date: 04/22/24 HPI HTN, Asthma HPI Details 59-year-old obese female with history of breast cancer left hypertension asthma GERD hypercholesterolemia generalized anxiety disorder coming in for follow-up. Last seen in April having back pain and left arm pain. Mammogram is up-to-date January 2024 bone density 11/29/2022 colonoscopy is 2017. MRI done of the breast September 02 2024 with concerns about suspicious 1.5 cm mass in the 03:00 o'clock left breast advised ultrasound-guided biopsy lumbar spine x-ray showing facet arthropathy and L5-S1 but otherwise disc spaces are well-maintained. US today. [facility] Medical History (Updated 09/14/24 @ 11:14 by Aniceto Levy MD) Knee pain, right At high risk for breast cancer Tinnitus Hypersomnia Vision problem Anemia Restless legs Snoring COVID-19 vaccine series completed Abnormal magnetic resonance imaging of left breast Chest pain Dysphagia Annual physical exam Otitis externa Blood sugar increased DCIS (ductal carcinoma in situ) of breast Hypersomnia Compression fracture of L2 Insomnia Obesity (BMI 30-39.9) Hypercholesterolemia Lumbar degenerative disc disease Carpal tunnel syndrome Migraine Pulmonary nodule Allergic rhinitis Irritable bowel syndrome GERD (gastroesophageal reflux disease) Asthma Hypertension Breast cancer Allergic sinusitis Cervical radiculopathy Surgical History History of lumpectomy of left breast (05/08/22) H/O colonoscopy H/O breast biopsy Status post total abdominal hysterectomy History of lumpectomy of right breast History of cholecystectomy Family History Father Diabetes Hypertension Myocardial infarction Mother Throat cancer Diabetes Hypertension Breast lump Sister Breast cancer Brother Myocardial infarction CVD (cardiovascular disease) Substance abuse Sister Breast cancer Son Diabetes Social History Household Members: Spouse Housing: House Are you a primary physician locums urgent care to a significant other at home: No Do you presently have visiting nurse or other home services: No Alcohol intake: current Alcohol intake frequency: holidays/special occasions only Alcohol type: beer and wine Patient Tobacco Use Status: Never used Tobacco Tobacco use type: Cigarette e-Cigarette/Vaping Use: Never Used Second Hand Smoke Exposure: No service: No Current occupational status: employed Current occupational exposures/hazards: No Cognitive needs: No Hearing needs: No Vision needs: No Questionnaire PHQ-9 Over the last 2 weeks, how often have you been bothered by any of the following problems? 1. Little interest or pleasure in doing things: more than half the days 2. Feeling down, depressed, or hopeless: more than half the days 3. Trouble falling or staying asleep, or sleeping too much: more than half the days 4. Feeling tired or having little energy: more than half the days 5. Poor appetite or overeating: not at all 6. Feeling bad about yourself - or that you are a failure or have let yourself or your family down: not at all 7. Trouble concentrating on things, such as reading the newspaper or watching television: not at all 8. Moving or speaking so slowly that other people could have noticed. Or the opposite - being so fidgety or restless that you have been moving around a lot more than usual: not at all 9. Thoughts that you would be better off or of hurting yourself in some way: not at all Total score: 8 Depression Screening Interpretation: Positive Depression Screening Done: Yes Source: Developed by Drs. Chet Park, Kali Hurst and colleagues, with an educational jocelyne from [employer]. Thrive Questionnaire Date Thrive assessed: 04/22/24 AUDIT C Alcohol Use Questionnaire (AUDIT-C) 1. How often do you have a drink containing alcohol?: Monthly or less 2. How many drinks containing alcohol do you have on a typical day when you are drinking?: 1 or 2 3. How often do you have six or more drinks on one occasion?: Never Total Score: 1 Score Reviewed/Action Taken: No ADELINE-7 AMB Questionnaire ADELINE-7 Date ADELINE - 7 assessed: 04/22/24 Source: Developed by Drs. Chet Park, Ely Monzon, Kali Gonzalez and colleagues, with an educational jocelyne from [employer]. Physical exam (Primary Care) Vital Signs: Last Vital Signs Pulse 74 09/14/24 10:42 BP 126/62 09/14/24 10:42 Pulse Ox 97 09/14/24 10:42 Oxygen Delivery Method Room Air 09/14/24 10:42 BMI result Body Mass Index 32.8 Tobacco/Smoking Status: Tobacco use Status Tobacco use date assessed 04/22/24 09/14/24 10:43 Patient Tobacco Use Status Never used Tobacco 09/14/24 10:43 Tobacco use type Cigarette 09/14/24 10:43 e-Cigarette/Vaping Use Never Used 09/14/24 10:43 PHQ-9: PHQ-9 Score PHQ-9: Total score 8 09/14/24 11:05 Depression Screening Interpretation: Positive Thrive Assessment: Date of Thrive Assessment Date Thrive assessed 04/22/24 09/14/24 10:43 Const General: alert; No acute distress Eyes Conjunctivae: conjunctivae normal Resp Auscultation: clear to auscultation bilaterally Cardio Rate: regular rate Rhythm: regular rhythm GI Inspection: Yes normal to inspection Extrem General: Yes normal to inspection and No edema Office Procedures Flu Questionnaire Does the patient have a severe egg allergy?: No Does the patient have severe life threatening allergies?: No Does the patient have a fever or illness today?: No Has the patient ever had Guillain-[place] Syndrome?: No Has the patient ever had any past reaction to a flu shot?: No Immunizations Fluarix Triv [id number] (PF) 45 mcg (15 mcg x 3)/0.5 mL IM syringe Performing Provider: Aniceto Leyv MD [facility] Administered by: Deloris Gamino CMA on 09/14/24 11:21 Dose Route Admin Location Dispensed Lot Number Expiration Date NDC Director Of Web Marketing 0.5 mL IM Left Deltoid 0.5 mL [id number] 05/09/25 11482-647-92 [facility] VIS Given Date VIS Provided VIS Publication Date 09/14/24 Single Vaccine 21 Eligibility Eligibility Date Funding Source Not [facility] Eligible 09/14/24 Private Coding Level of Care Code Est Pt Level 4 (09876) Complex EM visit Add On G2211 Diagnoses Malignant neoplasm of female breast, unspecified estrogen receptor status, unspecified laterality, unspecified site of breast C50.919 Breast location: unspecified site of breast Estrogen receptor status: unspecified Laterality: unspecified laterality Patient sex: female Obesity (BMI 30-39.9) E66.9 Hypercholesterolemia E78.00 Gastroesophageal reflux disease without esophagitis K21.9 Esophagitis presence: without esophagitis Essential hypertension I10 Hypertension type: essential hypertension Mild intermittent asthma without complication J45.20 Asthma complication type: uncomplicated Asthma persistence: intermittent Asthma severity: mild Generalized anxiety disorder F41.1 Acute pain of right knee M25.561 Chronicity: acute Assessment & Plan Assessment & Plan (1) Breast cancer: Comment: July [address] Will and Dr. Dennis Code(s): C50.919 - Malignant neoplasm of unspecified site of unspecified female breast Category: Medical Qualifiers: Breast location: unspecified site of breast Estrogen receptor status: unspecified Laterality: unspecified laterality Patient sex: female Qualified Code(s): C50.919 - Malignant neoplasm of unspecified site of unspecified female breast Plan: Received an MRI of the breast showing left breast mass 1.5 cm. Patient is in contact with the surgeon. (2) Obesity (BMI 30-39.9): Code(s): E66.9 - Obesity, unspecified Category: Medical Plan: Diet and exercise (3) Hypercholesterolemia: Code(s): E78.00 - Pure hypercholesterolemia, unspecified Category: Medical Plan: Avoid fried foods, chicken skin, eggs, butter margarine, pastries and meat. Be it pork or beef they have a lot of cholesterol patient is taking simvastatin 5 mg at bedtime (4) GERD (gastroesophageal reflux disease): Code(s): K21.9 - Gastro-esophageal reflux disease without esophagitis Category: Medical Qualifiers: Esophagitis presence: without esophagitis Qualified Code(s): K21.9 - Gastro-esophageal reflux disease without esophagitis Plan: Avoid the foods that causes that usually spicy foods, tomato products, juices, coffee, soda and foods that your sensitive to. After eating do not lie down, allow 3-4 hours before in lie down. And keep the head of bed above 30 degrees to avoid the acid from going up. (5) Hypertension: Code(s): I10 - Essential (primary) hypertension Category: Medical Qualifiers: Hypertension type: essential hypertension Qualified Code(s): I10 - E ssential (primary) hypertension Plan: Continue with blood pressure medication. Decrease salt intake and exercise patient takes lisinopril 5 mg once a day hydrochlorothiazide 25 mg once a day (6) Asthma: Code(s): J45.909 - Unspecified asthma, uncomplicated Category: Medical Qualifiers: Asthma complication type: uncomplicated Asthma persistence: intermittent Asthma severity: mild Qualified Code(s): J45.20 - Mild intermittent asthma, uncomplicated Plan: Continue with albuterol and QVAR as needed (7) Generalized anxiety disorder: Comment: Counselling and psychiatry [facility] Code(s): F41.1 - Generalized anxiety disorder Category: Medical Plan: Continue with present medication. counselling (8) Knee pain, right: Code(s): M25.561 - Pain in right knee Category: Medical Qualifiers: Chronicity: acute Qualified Code(s): M25.561 - Pain in right knee Plan: Physical therapy, knee brace to use xray requested Orders: Orders XR knee RT 2V Today M25.561 - Pain in right knee PT Evaluation and Treatment Today M25.561 - Pain in right knee Influenza [id number] Immunization Today Z23 - Encounter for immunization Medications: New prazosin 1 mg PO BEDTIME 30 caps 0RF Fluarix Triv [id number] (PF) (flu vacc [id number] 6mos up(PF)) 0.5 mL IM ONCE 0.5 mL 0RF NS Z23 - Encounter for immunization bupropion HCl XL 150 mg PO QAM 30 tabs 0RF fluoxetine 40 mg PO DAILY 30 caps 0RF Refilled beclomethasone dipropionate 80 mcg/actuation (Qvar RediHaler) administer with spacer 2 inhalations inhalation BID 10.6 grams 4RF 30 days J45.20 - Mild intermittent asthma, uncomplicated
[2024-09-14 10:42] VITALS: BP 126/62; PULSE 74; O2SAT 97; BMI 32.8
== END 2024-09-14 11:29 | disposition home or self-care (01) ==
LOC: HO.HMCH 10:30
PROVIDERS: PCP Internal Medicine; Visit Provider Internal Medicine
DX: C50.919 Malignant neoplasm of unspecified site of unspecified female breast (principal); E78.00 Pure hypercholesterolemia, unspecified; Z68.32 Body mass index [BMI] 32.0-32.9, adult; E66.9 Obesity, unspecified; K21.9 Gastro-esophageal reflux disease without esophagitis; I10 Essential (primary) hypertension; J45.20 Mild intermittent asthma, uncomplicated; F41.1 Generalized anxiety disorder; M25.561 Pain in right knee

== ENCOUNTER 2024-09-14 11:36 | Outpatient (REF) | payer BC, SELFPAY ==
--- NOTE | ~2024-09-14 | US_ITS ---
EXAMINATION: US DIAGNOSTIC ULTRASOUND BREAST, LEFT CLINICAL INFORMATION: Suspicious finding left breast 3:00 axis on bilateral breast screening MRI from [facility]. Correlate with ultrasound. High-risk patient, history of ALH, benign papilloma 2021 in left breast, possible early DCIS right breast in 2011. COMPARISON: Breast MRI 09/02/2024 ([facility]). TECHNIQUE: Ultrasound of the left breast is performed with real-time waddell scale imaging and color Doppler. Attention was given to the 1-5 o'clock axis and the left axilla. FINDINGS: The 3:00 axis left breast, 10 cm from the nipple, there is an irregular hypoechoic shadowing lesion measuring approximately 5 x 6 x 4 mm, correlating well with the abnormality seen on MRI. This is a suspicious finding and is indeterminant. Ultrasound-guided biopsy recommended. Imaging of the left axilla demonstrates no abnormal lymph nodes. No additional abnormality seen. US/US breast LT limited mamm only IMPRESSION: -Suspicious hypoechoic irregular shadowing lesion left breast 3:00 axis, 10 cm from the nipple, correlating well with the abnormality seen on MRI. Ultrasound-guided biopsy recommended. -No abnormal lymphadenopathy left axilla. -Findings and recommendations discussed with the patient in detail. She appeared in understanding. ASSESSMENT: BI-RADS 4: Suspicious RECOMMENDATION: Biopsy recommended Electronically signed by: Bronson Escalera MD 09/14/2024 01:39 PM [facility]
--- NOTE | ~2024-09-14 | XR_ITS ---
EXAMINATION: XR KNEE, RIGHT CLINICAL INFORMATION: Right knee pain. COMPARISON: None available. TECHNIQUE: Four views of the right knee. FINDINGS: No fracture, dislocation, or suspicious focal bony abnormality. There is normal alignment. There is normal bone mineralization. Mild medial compartment joint space narrowing is present with minimal marginal osteophyte production. There is mild spurring of the tibial spines. Articular surfaces of the tibial plateau and condyles appear smooth and without lesion. Minimal degenerative patellofemoral joint changes are present without significant joint space narrowing. Lateral compartment appears normal and joint space with minimal marginal osteophyte spurs. There is no evidence of joint effusion in the suprapatellar bursa. Normal-appearing soft tissues. XR/XR knee RT 2V IMPRESSION: -No acute findings in the right knee. -Mild tricompartmental osteoarthrosis, most significant medial compartment. No joint effusion. Electronically signed by: Bronson Escalera MD 09/20/2024 11:01 AM SAR[facility]
== END 2024-09-14 11:37 | disposition home or self-care (01) ==
LOC: HO.XRAY 11:36
PROVIDERS: PCP Internal Medicine; Visit Provider Internal Medicine
DX: M25.561 Pain in right knee (principal); C50.919 Malignant neoplasm of unspecified site of unspecified female breast
CPT/HCPCS: 73560; 76642

== ENCOUNTER 2024-09-14 12:19 | Outpatient (REF) | payer BC, SELFPAY | END 2024-09-14 12:20 | disposition home or self-care (01) | LOC: HO.MAMMO 12:19 | PROVIDERS: PCP Internal Medicine; Visit Provider Surgery | DX: I10 Essential (primary) hypertension (principal); C50.912 Malignant neoplasm of unspecified site of left female breast; E66.9 Obesity, unspecified; E78.00 Pure hypercholesterolemia, unspecified; K21.9 Gastro-esophageal reflux disease without esophagitis; J45.20 Mild intermittent asthma, uncomplicated; F41.1 Generalized anxiety disorder; M25.561 Pain in right knee; Z79.899 Other long term (current) drug therapy; Z23 Encounter for immunization | CPT/HCPCS: 90471; 90656; 96127 ==

== ENCOUNTER → 2024-09-14 13:00 | Outpatient (BNV) | payer BC, SELFPAY | PROVIDERS: PCP Internal Medicine; Visit Provider Radiology Diagnostic Radiology | DX: R92.8 Other abnormal and inconclusive findings on diagnostic imaging of breast (principal) | CPT/HCPCS: 73560; 76642 ==

== ENCOUNTER 2024-09-20 09:31 | Outpatient (REF) | payer BC, SELFPAY ==
--- NOTE | ~2024-09-20 | MM_ITS ---
PROCEDURE: US GUIDED BREAST BIOPSY, LEFT CLINICAL INFORMATION: -Suspicious finding left breast 3:00 axis on bilateral breast screening MRI from [facility]. Correlated with ultrasound on 09/14/2024, demonstrating suspicious lesion left breast 3:00 axis, 10 cm from the nipple. -High-risk patient, history of ALH, benign papilloma 2021 in left breast, possible early DCIS right breast in 2011. COMPARISON: Targeted left breast ultrasound 09/14/2024. Breast MRI 09/02/2024 ([facility]). PROCEDURAL DETAILS: The details of the procedure, as well as the risks, benefits, and alternatives to the procedure were explained to the patient in detail and all of her questions were answered, after which written informed consent was obtained. Site and side were confirmed. Prior to the procedure, sonography revealed the irregular shadowing mass measuring 5 x 6 x 4 mm in the 3:00 axis left breast, 10 cm from the nipple. A time-out was performed, the lesion intended for biopsy was targeted, and the skin of the overlying left breast was then marked, prepped and draped in the usual sterile fashion. Using sonographic guidance, sterile technique, and 1% lidocaine without epinephrine for local anesthesia, multiple core biopsies were obtained through the targeted area with a 14G spring loaded iCeuticaera core biopsy device. There was real-time confirmation of appropriate needle passage. Sampling was documented. At the completion of tissue sampling, a single butterfly shaped metallic clip was deposited at the biopsy site. There was no evidence of immediate complication. SPECIMEN: 3 well formed core samples were obtained DIGITAL POST-PROCEDURE MAMMOGRAPHY: Breast density: The tissue contains scattered areas of fibroglandular density. BI-RADS version 5, category B. There are no new mammographic findings demonstrated. The postprocedure 2-view direct digital mammogram reveals satisfactory and accurate positioning of the biopsy clip. No hematoma present. The patient tolerated the procedure well and, after assuring adequate hemostasis, was discharged in good condition after reviewing postbiopsy breast care instructions. Final pathology results are pending. MM/MM tomosynthesis diagnostic LT IMPRESSION: 1. No immediate complication from ultrasound-guided percutaneous biopsy left breast irregular 5 x 6 x 4 mm mass at 3:00. 2. Ultrasound was used to localize and guide marker clip placement. 3. The 2-view direct digital postprocedure mammogram reveals accurate positioning of the biopsy clip. The ultrasound finding correlates with the mammographic region of concern, which also correlates with the MRI region of concern. 4. Final pathology results are pending. A separate report with final recommendations will be issued once these results are made available. Electronically signed by: Bronson Escalera MD 09/20/2024 10:58 AM [facility]
[2024-09-20] MEDS: Lidocaine HCl 1 % 20 ML VIAL 8 ML SUBCUT (10:49)
[2024-09-20] MEDS: Sodium Bicarbonate 8.4% 50 MEQ/50 ML VIAL SUBCUT (10:50)
== END 2024-09-20 09:32 | disposition home or self-care (01) ==
LOC: HO.MAMMO 09:31
PROVIDERS: PCP Internal Medicine; Visit Provider Surgery
DX: C50.812 Malignant neoplasm of overlapping sites of left female breast (principal); N60.92 Unspecified benign mammary dysplasia of left breast; Z91.89 Other specified personal risk factors, not elsewhere classified
CPT/HCPCS: 19083; 77061; 77065; 88305; 88341; 88342; 88360; A4648; C1894; J2003

== ENCOUNTER → 2024-09-20 10:00 | Outpatient (BNV) | payer BC, SELFPAY | PROVIDERS: PCP Internal Medicine; Visit Provider Radiology Diagnostic Radiology | DX: D05.12 Intraductal carcinoma in situ of left breast (principal) | CPT/HCPCS: 19083; 77065 ==

== ENCOUNTER 2024-09-28 10:03 | Outpatient (AMB) | payer BC, SELFPAY ==
--- NOTE | 2024-09-28 10:08 | A.OFFVIS_ITS ---
Vital Signs 09/28/24 10:11 Height 5 ft Weight 226 lb 10.163 oz BMI 44.3 BP 130/60 Blood Pressure Location Lt brachial Position Sitting Pulse 78 Intake Visit Reasons: bx results Intake Note: Patient is seen in office for biopsy results. 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 Accompanied by: Self / Same As Patient Allergies latex [LATEX] Allergy (Intermediate, Verified 09/28/24 10:10) RASH ENVIRONMENTAL Allergy (Mild, Uncoded 09/28/24 10:10) HAYFEVER Medication List - Last Reconciled 09/28/24 by David Rivas MD albuterol sulfate 90 mcg/actuation 2 puffs inhalation Q6H PRN beclomethasone dipropionate 80 mcg/actuation (Qvar RediHaler) 2 inhalations inhalation BID 30 days bupropion HCl XL 150 mg PO QAM cholecalciferol (vitamin D3) 25 mcg PO DAILY clotrimazole 1% 1 appl topical BID 4 weeks famotidine (Pepcid) 20 mg PO BEDTIME fluoxetine 40 mg PO DAILY hydrochlorothiazide 25 mg PO DAILY hydroxyzine pamoate 1 - 2 caps PO BEDTIME PRN lisinopril 5 mg PO DAILY mirtazapine 15 mg PO BEDTIME montelukast 10 mg PO DAILY prazosin 1 mg PO BEDTIME simvastatin 5 mg PO BEDTIME tramadol 50 mg PO DAILY PRN HPI Comments Details: 58-year-old female patient with a prior history of ductal carcinoma in situ right breast returning for follow-up breast examination.? She is a former patient of Dr. Will found on right breast stereotactic guided core biopsy to have atypical ductal hyperplasia.? She subsequently underwent a right breast sheldon mpectomy with needle localization on 10/19/2012 which revealed multifocal ductal carcinoma in situ with clear margins.? Breast MRI was done for further assessment of the multifocality but was somewhat difficult to interpret.? She underwent radiation therapy which was completed in 02/08/2013.? She did develop some lymphedema in the breast which intermittently is causing some discomfort.? She denied lymphedema in the arm.? Her family history is significant for 1 full sister and 1/2 sister with breast cancer.? BRCA testing was performed and negative.? A mammogram on 11/17/2020 revealed no significant changes from the prior study (BI-RADS 2:? Benign).? Her lifetime risk of breast cancer was determined to be 31%, well above the 20% threshold placing her at high risk for recurrent breast cancer.? On 09/13/2021 she underwent MRI of the breast. This revealed a non mass enhancement measuring 0.7 cm in the left breast at the 12 o'clock position. This was felt to be suspicious an MR guided biopsy recommended. She underwent MR guided biopsy on 10/02/2021. Pathology revealed sclerosing papilloma, no atypia or carcinoma was seen. The papilloma was present in 1 tissue fragment in each block of tissue measuring up to 4 mm in greatest diameter. 05/08/2022: Left breast lumpectomy with needle localization. Path revealed: Breast, left, lumpectomy with needle localization: - Residual sclerosing papilloma; margins uninvolved; negative for atypia or malignancy. - Background breast parenchyma with prior biopsy site changes, atypical lobular hyperplasia (ALH), radial sclerosing lesion, sclerosing adenosis and papillary cystic apocrine metaplasia. Breast MRI performed on 09/02/2024 revealed a left breast density in the 03:00 o'clock location measuring approximately 1.5 cm in diameter felt to be suspicious for malignancy. Evaluation with ultrasound on 09/14/2024 confirmed the density which was felt to be suspicious therefore a biopsy was performed under ultrasound guidance on 09/20/2024. Subsequent pathology revealed invasive lobular carcinoma with atypical lobular hyperplasia and lobular carcinoma in- situ. Patient returns today to review the results and discuss treatment options. [facility] Medical History Knee pain, right At high risk for breast cancer Tinnitus Hypersomnia Vision problem Anemia Restless legs Snoring COVID-19 vaccine series completed Abnormal magnetic resonance imaging of left breast Chest pain Dysphagia Annual physical exam Otitis externa Blood sugar increased DCIS (ductal carcinoma in situ) of breast Hypersomnia Compression fracture of L2 Insomnia Obesity (BMI 30-39.9) Hypercholesterolemia Lumbar degenerative disc disease Carpal tunnel syndrome Migraine Pulmonary nodule Allergic rhinitis Irritable bowel syndrome GERD (gastroesophageal reflux disease) Asthma Hypertension Breast cancer Allergic sinusitis Cervical radiculopathy Surgical History History of lumpectomy of left breast (05/08/22) H/O colonoscopy H/O breast biopsy Status post total abdominal hysterectomy History of lumpectomy of right breast History of cholecystectomy Family History Father Diabetes Hypertension Myocardial infarction Mother Throat cancer Diabetes Hypertension Breast lump Sister Breast cancer Brother Myocardial infarction CVD (cardiovascular disease) Substance abuse Sister Breast cancer Son Diabetes Social History Household Members: Spouse Housing: House Are you a primary care analyst to a significant other at home: No Do you presently have visiting nurse or other home services: No Alcohol intake: current Alcohol intake frequency: holidays/special occasions only Alcohol type: beer and wine Patient Tobacco Use Status: Never used Tobacco Tobacco use type: Cigarette e-Cigarette/Vaping Use: Never Used Second Hand Smoke Exposure: No service: No Current occupational status: employed Current occupational exposures/hazards: No Cognitive needs: No Hearing needs: No Vision needs: No Review of Systems Const All systems reviewed & are unremarkable except as noted in HPI and below Resp Denies chest congestion, Denies cough and Denies stridor Denies nipple discharge Skin/Breast Details: Bruising in the left breast following MR guided core biopsy. Reports bleeding lesions, Denies breast swelling, Reports breast skin changes, Denies breast pain, Denies breast mass, Denies change in breast shape and Denies nipple discharge You/Lymph Denies lymphadenopathy Physical Exam Vital Signs: Last Vital Signs Pulse 78 09/28/24 10:11 BP 130/60 09/28/24 10:11 BMI result Body Mass Index 44.3 Const General: healthy appearing and no acute distress Nutritional Appearance: well nourished Orientation/consciousness: patient oriented x3 Limitations: no limitations Chest Other: Well-healed incision in the left breast, slight tenderness to palpation throughout the breast especially in the lower quadrants. No skin change, nipple discharge, palpable mass, or enlarged lymph nodes. Needle biopsy site in the upper outer quadrant is clean with a small area of ecchymosis. Right breast no skin change, nipple discharge, palpable mass, or enlarged lymph nodes. Tenderness also noted in the lower quadrants and lateral axilla. Axillary tenderness appears to be muscular. Resp Effort & Inspection: normal respiratory effort, no audible wheezes, no cough and no respiratory distress GI Inspection: Yes normal to inspection Skin General skin exam: no rashes or lesions noted Neuro General: patient oriented x3 Extrem General: No edema Assessment & Plan Assessment & Plan (1) Invasive lobular carcinoma of breast in female: Code(s): C50.919 - Malignant neoplasm of unspecified site of unspecified female breast Category: Medical Plan 59-year-old female patient presenting with an abnormal breast MRI confirmed on a left breast ultrasound to be a density in the 3 o'clock position. Subsequent ultrasound-guided core biopsy confirmed a left breast invasive lobular carcinoma with lobular carcinoma in-situ and atypical lobular hyperplasia. I reviewed the pathology in detail with the patient and recommended a left breast lumpectomy with localizer and left axillary sentinel node biopsy. After discussion of the procedure, risks, and alternatives, she consents to the surgery. This will be scheduled as a short-stay surgery at her earliest convenience. Coding Level of Care Code Est Pt Level 4 (74556) Diagnoses Invasive lobular carcinoma of breast in female C50.919
[2024-09-28 10:11] VITALS: BP 130/60; PULSE 78; BMI 44.3
== END 2024-09-28 10:23 | disposition home or self-care (01) ==
PROVIDERS: PCP Internal Medicine; Visit Provider Surgery
DX: C50.919 Malignant neoplasm of unspecified site of unspecified female breast (principal)
CPT/HCPCS: 99214

== ENCOUNTER → 2024-10-04 10:00 | Outpatient (BNV) | payer BC, SELFPAY | PROVIDERS: PCP Internal Medicine; Visit Provider Radiology Diagnostic Radiology | DX: D05.12 Intraductal carcinoma in situ of left breast (principal) | CPT/HCPCS: 19281 ==

== ENCOUNTER 2024-10-04 10:09 | Outpatient (REF) | payer BC, SELFPAY ==
--- NOTE | ~2024-10-04 | MM_ITS ---
EXAMINATION: MM MAMMOGRAM GUIDED RFID LOCALIZATION BREAST, LEFT CLINICAL INFORMATION: -Left breast 3:00 axis atypical lobular hyperplasia/lobular carcinoma in situ, marked by butterfly shaped clip. For localization. (Correlated with ultrasound on 09/14/2024, demonstrating suspicious lesion left breast 3:00 axis, 10 cm from the nipple, initially seen on MRI 09/02/2024). -High-risk patient, history of ALH, benign papilloma 2021 in left breast, possible early DCIS right breast in 2011. COMPARISON: US needle core biopsy left 09/20/2024. Breast MRI 09/02/2024. Targeted left breast ultrasound 09/14/2024. TECHNIQUE NEEDLE LOC: Proper informed consent is obtained from the patient after discussion of the procedure, potential risks and complications, and alternatives including declining the procedure today. Patient was given an opportunity for questions. The patient appeared to understand. The patient consented to the procedure and signed the consent form. GUIDANCE: Digital mammography. APPROACH: Lateral to medial. TARGET: Subtle distortion marked by butterfly shaped clip. ANESTHESIA: carbonated lidocaine 1%: 7 mL. LOCALIZATION SYSTEM: [employer] LOCallizer 5 cm Wire-Free Guidance System with 12g needle applicator. RADIOFREQUENCY TAG: ID # [id number] DERMATOTOMY: Single 1 mm skin-antonio dermatotomy performed. RF Tag ID confirmed with LOCalizer Guidance System prior to placement. The skin is prepped and local anesthesia administered. The needle is positioned and RFID tag deployed. Final images demonstrate the LOCalizer RF tag to reside immediately adjacent to the clip/distortion, well-positioned. The patient tolerated the procedure well and had no immediate complications. Dressing placed and home instructions reviewed. MM/MM RF Tag device LT IMPRESSION: -Status post left breast RFID localization, 3:00 axis lesion, biopsy-proven ALH/LCIS. -Final CC and ML images were labeled appropriately for OR reference. Electronically signed by: Bronson Escalera MD 10/04/2024 11:51 AM [facility]
[2024-10-04] MEDS: Lidocaine HCl 1 % 20 ML VIAL 7 ML SUBCUT (10:55)
[2024-10-04] MEDS: Sodium Bicarbonate 8.4% 50 MEQ/50 ML VIAL SUBCUT (10:57)
== END 2024-10-04 10:10 | disposition home or self-care (01) ==
LOC: HO.MAMMO 10:09
PROVIDERS: PCP Internal Medicine; Visit Provider Surgery
DX: C50.919 Malignant neoplasm of unspecified site of unspecified female breast (principal)
CPT/HCPCS: 19281; C1819; J2003

== ENCOUNTER 2024-10-06 06:00 | Day surgery (SDC) | payer BC, SELFPAY ==
[2024-10-04 10:08] VITALS: BMI 44.3
--- NOTE | 2024-10-05 09:03 | HO.ANESPROP2 ---
Documented by User: Radha Mejia NP 10/05/24 09:12 HPI - Anesthesia Eval Consult details Narrative: 59yo F for Left Breast Lumpectomy w/LOCalizer, [place] Node Biopsy PMFSH Active Problems Active Problems: All Active Problems Invasive lobular carcinoma of breast in female (Acute) Knee pain, right (Acute) Left arm pain (Acute) Low back pain (Acute) Upper back pain on left side (Acute) Fall (Acute) At high risk for breast cancer (Acute) Cervical cancer screening (Acute) Tinea pedis (Acute) Annual physical exam (Acute) Insomnia (Acute) Atypical hyperplasia of left breast (Acute) Thoracic spondylosis (Acute) Generalized anxiety disorder (Acute) Constipation (Acute) Impaired glucose tolerance (Acute) Intraductal papilloma of left breast (Acute) Allergic rhinitis (Acute) Breast cancer (Acute) Compression fracture of L2 (Acute) Obesity (BMI 30-39.9) (Acute) Hypercholesterolemia (Acute) Irritable bowel syndrome (Acute) GERD (gastroesophageal reflux disease) (Acute) Asthma (Acute) Hypertension (Acute) Past Medical History Medical History Knee pain, right At high risk for breast cancer Tinnitus Hypersomnia Vision problem Anemia Restless legs Snoring COVID-19 vaccine series completed Abnormal magnetic resonance imaging of left breast Chest pain Dysphagia Annual physical exam Otitis externa Blood sugar increased DCIS (ductal carcinoma in situ) of breast Hypersomnia Compression fracture of L2 Insomnia Obesity (BMI 30-39.9) Hypercholesterolemia Lumbar degenerative disc disease Carpal tunnel syndrome Migraine Pulmonary nodule Allergic rhinitis Irritable bowel syndrome GERD (gastroesophageal reflux disease) Asthma Hypertension Breast cancer Allergic sinusitis Cervical radiculopathy Family History Family History Father Diabetes Hypertension Myocardial infarction Mother Throat cancer Diabetes Hypertension Breast lump Sister Breast cancer Brother Myocardial infarction CVD (cardiovascular disease) Substance abuse Sister Breast cancer Son Diabetes Family history of problems with anesthesia: No Surgical History Surgical History History of lumpectomy of left breast (05/08/22) H/O colonoscopy H/O breast biopsy Status post total abdominal hysterectomy History of lumpectomy of right breast History of cholecystectomy History of Problems with Anesthesia: No Social History Social History Household Members: Spouse Housing: House Are you a primary director career services to a significant other at home: No Do you presently have visiting nurse or other home services: No Alcohol intake: current Alcohol intake frequency: does not drink Alcohol type: beer and wine Patient Tobacco Use Status: Never used Tobacco Tobacco use type: Cigarette e-Cigarette/Vaping Use: Never Used Second Hand Smoke Exposure: No Have you been hit, kicked, punched, or otherwise hurt by someone within the past year? If so, by whom?: No Are you DNR?: No Advance Directives: No Advance Directives Information Provided: Yes Nutrition Risks: No Nutritional Risk service: No Current occupational status: employed Current occupational exposures/hazards: No Cognitive needs: No Hearing needs: No Vision needs: No Meds Allergies Allergy/AdvReac Type Severity Reaction Status Date / Time latex [LATEX] Allergy Intermediate RASH Verified 09/28/24 10:10 ENVIRONMENTAL Allergy Mild HAYFEVER Uncoded 09/28/24 10:10 Home Medications ?Medication ?Instructions ?Recorded ?Confirmed ?Last Taken ?Type cholecalciferol (vitamin D3) 25 25 mcg PO DAILY 10/01/21 10/06/24 10/05/24 History mcg (1,000 unit) capsule hydroxyzine pamoate 25 mg capsule 1 - 2 cap PO BEDTIME PRN insomnia 12/26/22 10/06/24 10/05/24 History Exam Height,Weight and Vital Signs: Height 5 ft Weight 102.798 kg Assessment and Plan Assessment Anesthesia Assessment: Chart Reviewed Final Anesthetic Review Family History of Problems with Anesthesia: No History of Problems with Anesthesia: No Documented by User: Ramila Worrell MD 10/06/24 07:50 PMFSH Past Medical History Medical History Knee pain, right At high risk for breast cancer Tinnitus Hypersomnia Vision problem Anemia Restless legs Snoring COVID-19 vaccine series completed Abnormal magnetic resonance imaging of left breast Chest pain Dysphagia Annual physical exam Otitis externa Blood sugar increased DCIS (ductal carcinoma in situ) of breast Hypersomnia Compression fracture of L2 Insomnia Obesity (BMI 30-39.9) Hypercholesterolemia Lumbar degenerative disc disease Carpal tunnel syndrome Migraine Pulmonary nodule Allergic rhinitis Irritable bowel syndrome GERD (gastroesophageal reflux disease) Asthma Hypertension Breast cancer Allergic sinusitis Cervical radiculopathy Family History Family History Father Diabetes Hypertension Myocardial infarction Mother Throat cancer Diabetes Hypertension Breast lump Sister Breast cancer Brother Myocardial infarction CVD (cardiovascular disease) Substance abuse Sister Breast cancer Son Diabetes Surgical History Surgical History History of lumpectomy of left breast (05/08/22) H/O colonoscopy H/O breast biopsy Status post total abdominal hysterectomy History of lumpectomy of right breast History of cholecystectomy Social History Social History Household Members: Spouse Housing: House Are you a primary director career services to a significant other at home: No Do you presently have visiting nurse or other home services: No Alcohol intake: current Alcohol intake frequency: does not drink Alcohol type: beer and wine Patient Tobacco Use Status: Never used Tobacco Tobacco use type: Cigarette e-Cigarette/Vaping Use: Never Used Second Hand Smoke Exposure: No Have you been hit, kicked, punched, or otherwise hurt by someone within the past year? If so, by whom?: No Are you DNR?: No Advance Directives: No Advance Directives Information Provided: Yes Nutrition Risks: No Nutritional Risk service: No Current occupational status: employed Current occupational exposures/hazards: No Cognitive needs: No Hearing needs: No Vision needs: No Meds Allergies Allergy/AdvReac Type Severity Reaction Status Date / Time latex [LATEX] Allergy Intermediate RASH Verified 09/28/24 10:10 ENVIRONMENTAL Allergy Mild HAYFEVER Uncoded 09/28/24 10:10 Home Medications ?Medication ?Instructions ?Recorded ?Confirmed ?Last Taken ?Type cholecalciferol (vitamin D3) 25 25 mcg PO DAILY 10/01/21 10/06/24 10/05/24 History mcg (1,000 unit) capsule hydroxyzine pamoate 25 mg capsule 1 - 2 cap PO BEDTIME PRN insomnia 12/26/22 10/06/24 10/05/24 History Exam Airway Mallampati Class: I TM Dist: >3cm Neck ROM: Full Denture: Upper and Lower Heart: rrr Lungs: cta Assessment and Plan Assessment Anesthesia Assessment: Anesthesia Plan Discussed Final Anesthetic Review NPO: Yes ASA Class: III Final Preanesthetic Review: No Changes in Pt Med Stat, Meds/Allgs Chart Reviewed, Consent Obtained/Reviewed and Anes Risks/Benef Reviewed Patient Risk: Low Procedure Risk: Low Anesthetic Plan Anesthetic Plan: GA Disposition: Standard PACU
--- NOTE | ~2024-10-06 | MM_ITS ---
Single left breast specimen radiograph demonstrates the TAG localizer clip and the butterfly clip within the specimen. Findings were communicated to the OR 10/06/2024 10:00 AM. Electronically signed by: Lili Aparicio DO 10/06/2024 11:48 AM [facility] [place]
--- NOTE | ~2024-10-06 | NM_ITS ---
EXAMINATION: NM LYMPHOSCINTIGRAPHY CLINICAL INFORMATION: -Left breast 3:00 axis atypical lobular hyperplasia/lobular carcinoma in situ, marked by butterfly shaped clip. For sentinel node. (Correlated with ultrasound on 09/14/2024, demonstrating suspicious lesion left breast 3:00 axis, 10 cm from the nipple, initially seen on MRI 09/02/2024). -High-risk patient, history of ALH, benign papilloma 2021 in left breast, possible early DCIS right breast in 2011. COMPARISON: No prior nuclear medicine studies. RF ID tag left breast 10/04/2024. US needle core biopsy left 09/20/2024. Breast MRI 09/02/2024. Targeted left breast ultrasound 09/14/2024. TECHNIQUE: Left breast lymphoscintigraphy injection was performed . Approximately 0.5 mCi of technetium 99m lymphoseek and 0.8 mL of saline was divided into 4 aliquots of approximately 0.125 mCi, and injected in 4 quadrants around the right breast areola intradermally at 12:00, 3:00, 6:00, and 9:00. Immediate images and delayed images were obtained in AP, oblique and lateral views 25 minutes later. FINDINGS: Immediately, there is isotope activity in four-quadrant around right breast areola following injection. At 25 minutes, there is activity seen tracking to the left lateral 5:00 axis, 2:00 axis, and then to a sentinel lymph node in the left low axilla, where the strongest activity resides. NM/NM sentinel node w imaging IMPRESSION: Gage lymph node seen in left low axilla on left breast lymphoscintigraphy. Thank you for the courtesy of your referral. Electronically signed by: Bronson Escalera MD 10/06/2024 11:[address] [facility]
[2024-10-06] MEDS: Lidocaine HCl 4 % Topical 50 ML SOLUTION 1 APPL TOPICAL (06:10)
[2024-10-06 06:19] VITALS: BP 144/67; PULSE 68; RESP 19; TEMP 36.9; O2SAT 96; BMI 44.6
[2024-10-06] MEDS: Lactated Ringers 1,000 ML 100 ML IVCONT (06:44)
--- NOTE | 2024-10-06 09:05 | MHC.SHP ---
Pre-Procedural Eval Section A - 24 Hr Update-Section A only Date of Service: 10/06/24 The patient is an INPATIENT: No Changes since office visit: Yes Patient answered all questions; No Cold of Flu in the past 2 weeks, No New Medical Problems and No Changes in Medication The patient has been examined within 24 hours of the surgical procedure. The History & Physical has been completed within 30 days and I have reviewed it.: Yes Section B - Complete if H&P > 30 days Chief Complaint: Malignant neoplasm of unspecified site Allergies: Allergies Allergy/AdvReac Type Severity Reaction Status Date / Time latex [LATEX] Allergy Intermediate RASH Verified 09/28/24 10:10 ENVIRONMENTAL Allergy Mild HAYFEVER Uncoded 09/28/24 10:10 Plan Diagnosis/Plan: Unchanged I have reviewed the history and physical and performed a pertinent physical examination on my patient. No changes have occurred unless specified. Time Spent With Patient Time: Total time managing care of this patient today ____ minutes.
--- NOTE | 2024-10-06 10:29 | P.OP_ITS ---
Operative Note Operative Note Date of Service: 10/06/24 Narrative: Preoperative diagnosis: Invasive lobular carcinoma left breast Postoperative diagnosis: Same Procedure: Left breast lumpectomy with localizer, left axillary sentinel node biopsy Surgeon: David Rivas MD Financial Data Analyst: Verónica Shukla PA-C Anesthesia: General LMA Indications for procedure: 59-year-old female patient presenting with a left breast invasive lobular carcinoma found on a recent core biopsy. She presents today for left breast lumpectomy with localizer and left axillary sentinel node biopsy. Operative findings: Marking clip found within the specimen x-ray along with the localizer. Gross pathology confirms tumor within specimen. Specimen: 1. Left breast lumpectomy 2. Left axillary sentinel node #1 3. Additional axillary tissue with low-level radio activity 4. Inferior margin left breast Estimated blood loss: 15 mL Complications: None Procedure details: Patient was brought to the OR placed in a supine position. After administering general anesthesia the patient's left breast was prepped with ChloraPrep and draped in a sterile fashion. A surgical time-out was called the consent confirmed. Patient received preoperative antibiotics and Venodyne boots were in place. Local anesthesia was infiltrated in the upper outer quadrant overlying the area of the marking clip identified by the localizer device. A curvilinear incision was made with a scalpel carried out through subcutaneous tissue. Superior and inferior skin flaps were then created with electrocautery. A core of tissue surrounding the localizer clip was then obtained. Dissection continued down to chest wall. Specimen was x-rayed in the OR and confirmed the marking clip and localizer clip within the specimen. Specimen was sent to pathology for further examination. Gross pathology revealed margins to be negative but close in the inferior margin. As a result an additional specimen was obtained of the inferior margin from anterior to posterior, medial to lateral. This was sent as inferior margin left breast. Gamma probe was then used to identify the area of increased activity. An area at the superior aspect of the biopsy cavity was identified as having the highest radio activity. Allis clamp was then placed on this area and a core of tissue surrounding this excised. A hot node the proximally 4000 counts was identified within the specimen this was sent as sentinel node 1. No further radio activity was identified in the axillary compartment. Additional axillary tissue was removed with a minimal amount of radio activity and sent as additional axillary tissue. No palpable lymph nodes were appreciated at this time. Wounds were irrigated with saline solution and suctioned dry. Wounds were checked for hemostasis. Hemostasis was assured using electrocautery and free t ies of 3-0 Polysorb. Hemoclips were used to erin the biopsy cavity. Deep breast tissue was reapproximated using interrupted 3-0 Polysorb sutures. Superficial breast tissue was reapproximated using interrupted 3-0 Polysorb sutures. Dermis was reapproximated using interrupted 3-0 Polysorb sutures. Skin was then closed using a running subcuticular 4-0 Polysorb suture. Steri- Strips, 2 x 2 gauze and Tegaderm were then applied. The patient tolerated the procedure well. Sponge, instrument, needle counts reported as correct. Patient was transferred to PACU in stable condition. Please note, this procedure was performed with curative intent. Breast [place] Node Biopsy Substrate(s) used for sentinel node biopsy in the non-neoadjuvant setting: Radiotracer Substrate(s) used for sentinel node biopsy in the neoadjuvant setting: N/A All colored nodes or non-colored nodes present at the end of a dye filled lymphatic channel were removed, if dye was used as the substrate for localization: N/A All significantly radioactive nodes were removed, if radionuclide was used as the substrate for localization: Yes All palpably suspicious nodes were removed, if present: Yes If clips were placed in pathology-involved nodes, those nodes were identified and removed: N/A Procedure performed with curative intent?: Yes General Surg. - Synoptic Notes Breast [place] Node Biopsy Substrate(s) used for sentinel node biopsy in the non-neoadjuvant setting: Radiotracer Substrate(s) used for sentinel node biopsy in the neoadjuvant setting: N/A All colored nodes or non-colored nodes present at the end of a dye filled lymphatic channel were removed, if dye was used as the substrate for l ocalization: N/A All significantly radioactive nodes were removed, if radionuclide was used as the substrate for localization: Yes All palpably suspicious nodes were removed, if present: Yes If clips were placed in pathology-involved nodes, those nodes were identified and removed: N/A Procedure performed with curative intent?: Yes
[2024-10-06 10:45] VITALS: BP 170/76; PULSE 76; RESP 18; TEMP 36.4; O2SAT 99
[2024-10-06 10:50] VITALS: BP 149/75; PULSE 74; RESP 18; O2SAT 99
[2024-10-06 10:55] VITALS: BP 143/83; PULSE 74; RESP 18; O2SAT 99
[2024-10-06 11:00] VITALS: BP 150/82; PULSE 72; RESP 18; O2SAT 99
[2024-10-06 11:15] VITALS: BP 148/80; PULSE 77; RESP 18; O2SAT 97
== END 2024-10-06 11:56 | disposition home or self-care (01) ==
PROVIDERS: PCP Internal Medicine; Visit Provider Surgery
PROC: (CPT 19301; principal; 2024-10-06 09:30)
PROC: (CPT 19301; 2024-10-06 09:30)
DX: C50.812 Malignant neoplasm of overlapping sites of left female breast (principal); C77.3 Secondary and unspecified malignant neoplasm of axilla and upper limb lymph nodes; Z91.89 Other specified personal risk factors, not elsewhere classified; Z85.3 Personal history of malignant neoplasm of breast; Z92.3 Personal history of irradiation; Z80.3 Family history of malignant neoplasm of breast; I10 Essential (primary) hypertension; R91.1 Solitary pulmonary nodule; D64.9 Anemia, unspecified; J45.909 Unspecified asthma, uncomplicated; E78.00 Pure hypercholesterolemia, unspecified; Z90.710 Acquired absence of both cervix and uterus; Z91.040 Latex allergy status; Z79.899 Other long term (current) drug therapy; Z98.890 Other specified postprocedural states; Z17.0 Estrogen receptor positive status [ER+]; Z17.21 Progesterone receptor positive status; Z17.32 Human epidermal growth factor receptor 2 negative status
CPT/HCPCS: 19301; 38525; 38900; 78195; 88304; 88307; 88329; 88341; 88342; 88360; A9520; C1889; J0131; J0690; J1100; J2003; J2250; J2371; J2405; J2704; J2795; J3010

== ENCOUNTER → 2024-10-06 06:00 | Outpatient (BNV) | payer BC, SELFPAY | PROVIDERS: PCP Internal Medicine; Visit Provider Surgery | DX: C50.412 Malignant neoplasm of upper-outer quadrant of left female breast (principal) | CPT/HCPCS: 19301; 38525; 38900 ==

== ENCOUNTER → 2024-10-06 08:00 | Outpatient (BNV) | payer BC, SELFPAY | PROVIDERS: PCP Internal Medicine; Visit Provider Radiology Diagnostic Radiology | DX: C50.919 Malignant neoplasm of unspecified site of unspecified female breast (principal) | CPT/HCPCS: 78195 ==

== ENCOUNTER 2024-10-19 10:51 | Outpatient (AMB) | payer BC, SELFPAY ==
--- NOTE | 2024-10-19 10:52 | A.OFFVIS_ITS ---
Vital Signs 3 10/19/24 10:58 Height 5 ft Weight 227 lb 1.218 oz BMI 44.3 BP 119/66 Blood Pressure Location Lt brachial Position Sitting Pulse 84 Intake Visit Reasons: S/P Lt brst lumpectomy w/seed & Lt SN bx Intake Note: Patient is seen in office for post op assessment post left breast lumpectomy. Pt c/o: unable to fully lift left arm due to sore and tender, pain radiates to the back when moving arm surgery:10/06/24 Barrel Rifler Hook Required: No Accompanied by: Self / Same As Patient Allergies latex [LATEX] Allergy (Intermediate, Verified 10/19/24 10:57) RASH ENVIRONMENTAL Allergy (Mild, Uncoded 10/19/24 10:57) HAYFEVER Medication List - Last Reconciled 10/19/24 by David Rivas MD albuterol sulfate 90 mcg/actuation 2 puffs inhalation Q6H PRN beclomethasone dipropionate 80 mcg/actuation (Qvar RediHaler) 2 inhalations inhalation BID 30 days bupropion HCl XL 150 mg PO QAM cholecalciferol (vitamin D3) 25 mcg PO DAILY clotrimazole 1% 1 appl topical BID 4 weeks famotidine (Pepcid) 20 mg PO BEDTIME fluoxetine 40 mg PO DAILY hydrochlorothiazide 25 mg PO DAILY hydroxyzine pamoate 1 - 2 caps PO BEDTIME PRN lisinopril 5 mg PO DAILY mirtazapine 15 mg PO BEDTIME montelukast 10 mg PO DAILY oxycodone 5 mg PO Q6H PRN prazosin 1 mg PO BEDTIME simvastatin 5 mg PO BEDTIME tramadol 50 mg PO DAILY PRN HPI Comments Details: 58-year-old female patient with a prior history of ductal carcinoma in situ right breast returning for follow-up breast examination.? She is a former patient of Dr. Will found on right breast stereotactic guided core biopsy to have atypical ductal hyperplasia.? She subsequently underwent a right breast lumpectomy with needle localization on 10/19/2012 which revealed multifocal ductal carcinoma in situ with clear margins.? Breast MRI was done for further assessment of the multifocality but was somewhat difficult to interpret.? She underwent radiation therapy which was completed in 02/08/2013.? She did develop some lymphedema in the breast which intermittently is causing some discomfort.? She denied lymphedema in the arm.? Her family history is significant for 1 full sister and 1/2 sister with breast cancer.? BRCA testing was performed and negative.? A mammogram on 11/17/2020 revealed no significant changes from the prior study (BI-RADS 2:? Benign).? Her lifetime risk of breast cancer was determined to be 31%, well above the 20% threshold placing her at high risk for recurrent breast cancer.? On 09/13/2021 she underwent MRI of the breast. This revealed a non mass enhancement measuring 0.7 cm in the left breast at the 12 o'clock position. This was felt to be suspicious an MR guided biopsy recommended. She underwent MR guided biopsy on 10/02/2021. Pathology revealed sclerosing papilloma, no atypia or carcinoma was seen. The papilloma was present in 1 tissue fragment in each block of tissue measuring up to 4 mm in greatest diameter. 05/08/2022: Left breast lumpectomy with needle localization. Path revealed: Breast, left, lumpectomy with needle localization: - Residual sclerosing papilloma; margins uninvolved; negative for atypia or malignancy. - Background breast parenchyma with prior biopsy site changes, atypical lobular hyperplasia (ALH), radial sclerosing lesion, sclerosing adenosis and papillary cystic apocrine metaplasia. Breast MRI performed on 09/02/2024 revealed a left breast density in the 03:00 o'clock location measuring approximately 1.5 cm in diameter felt to be suspicious for malignancy. Evaluation with ultrasound on 09/14/2024 confirmed the density which was felt to be suspicious therefore a biopsy was performed under ultrasound guidance on 09/20/2024. Subsequent pathology revealed invasive lobular carcinoma with atypical lobular hyperplasia and lobular carcinoma in- situ. She underwent a left breast lumpectomy with sentinel node biopsy as a short-stay surgery on 10/06/2024. Pathology revealed invasive lobular carcinoma, grade 2, 17 mm with lobular carcinoma in-situ. Margins were felt to be negative. One of 2 sentinel lymph nodes were positive for metastatic carcinoma (pT1c pN1a). She tolerated the procedure well and returns today for wound check. She does have some pain when raising her left arm over her head. [facility] Medical History Knee pain, right At high risk for breast cancer Tinnitus Hypersomnia Vision problem Anemia Restless legs Snoring COVID-19 vaccine series completed Abnormal magnetic resonance imaging of left breast Chest pain Dysphagia Annual physical exam Otitis externa Blood sugar increased DCIS (ductal carcinoma in situ) of breast Hypersomnia Compression fracture of L2 Insomnia Obesity (BMI 30-39.9) Hypercholesterolemia Lumbar degenerative disc disease Carpal tunnel syndrome Migraine Pulmonary nodule Allergic rhinitis Irritable bowel syndrome GERD (gastroesophageal reflux disease) Asthma Hypertension Breast cancer Allergic sinusitis Cervical radiculopathy Surgical History History of lumpectomy of left breast (10/06/24) History of lumpectomy of left breast (05/08/22) H/O colonoscopy H/O breast biopsy Status post total abdominal hysterectomy History of lumpectomy of right breast History of cholecystectomy Family History Father Diabetes Hypertension Myocardial infarction Mother Throat cancer Diabetes Hypertension Breast lump Sister Breast cancer Brother Myocardial infarction CVD (cardiovascular disease) Substance abuse Sister Breast cancer Son Diabetes Social History Household Members: Spouse Housing: House Are you a primary nurse behavioral health care to a significant other at home: No Do you presently have visiting nurse or other home services: No Alcohol intake: current Alcohol intake frequency: does not drink Alcohol type: beer and wine Patient Tobacco Use Status: Never used Tobacco Tobacco use type: Cigarette e-Cigarette/Vaping Use: Never Used Second Hand Smoke Exposure: No service: No Current occupational status: employed Current occupational exposures/hazards: No Cognitive needs: No Hearing needs: No Vision needs: No Review of Systems Const All systems reviewed & are unremarkable except as noted in HPI and below Physical Exam Vital Signs: Last Vital Signs Pulse 84 10/19/24 10:58 BP 119/66 10/19/24 10:58 BMI result Body Mass Index 44.3 Const General: healthy appearing and no acute distress Nutritional Appearance: well nourished Orientation/consciousness: patient oriented x3 Limitations: no limitations Chest Other: Well-healed incision in the left breast, slight tenderness to palpation throughout the breast especially in the lower quadrants. No skin change, nipple discharge, palpable mass, or enlarged lymph nodes. Right breast no skin change, nipple discharge, palpable mass, or enlarged lymph nodes. Chest/axillae images: 2 1. Resp Effort & Inspection: normal respiratory effort, no audible wheezes, no cough and no respiratory distress GI Inspection: Yes normal to inspection Skin General skin exam: no rashes or lesions noted Neuro General: patient oriented x3 Extrem General: No edema Assessment & Plan Assessment & Plan (1) Invasive lobular carcinoma of breast in female: Comment: September 2024 left breast lumpectomy Code(s): C50.919 - Malignant neoplasm of unspecified site of unspecified female breast Category: Medical Plan 59-year-old female patient presenting with an abnormal breast MRI confirmed on a left breast ultrasound to be a density in the 3 o'clock position. Subsequent ultrasound-guided core biopsy confirmed a left breast invasive lobular carcinoma with lobular carcinoma in-situ and atypical lobular hyperplasia. She is now status post left breast lumpectomy with sentinel node biopsy. Pathology confirmed invasive lobular carcinoma with LCIS, 1 of 2 sentinel lymph nodes positive for metastatic disease, ER/CT positive, HER2 Piep negative. I reviewed the pathology in detail with the patient and provided her with a copy of the report. I recommended follow-up with Dr. Dennis to discuss next steps. I recommended follow-up in 1 month, sooner p.r.n.. Orders: Referrals 2 Hematology & Oncology Referral C50.919 - Malignant neoplasm of unspecified site of unspecified female breast Coding Level of Care Code Global (59251) Diagnoses Invasive lobular carcinoma of breast in female C50.919
[2024-10-19 10:58] VITALS: BP 119/66; PULSE 84; BMI 44.3
== END 2024-10-19 11:10 | disposition home or self-care (01) ==
PROVIDERS: PCP Internal Medicine; Visit Provider Surgery
DX: C50.919 Malignant neoplasm of unspecified site of unspecified female breast (principal)
CPT/HCPCS: 99024

== ENCOUNTER → 2024-10-19 10:51 | Outpatient (BNVA) | payer BC, SELFPAY | PROVIDERS: PCP Internal Medicine; Visit Provider Surgery ==

== ENCOUNTER 2024-11-19 14:13 | Outpatient (REF) | payer BC, SELFPAY ==
--- NOTE | ~2024-11-19 | MM_ITS ---
EXAMINATION: Dual-Energy X-ray Absorptiometry - Bone Density Study HISTORY: Estrogen deficiency TECHNIQUE: Paice Dual energy absorptiometry (DEXA) of the lumbar spine, total left hip, and femoral neck was performed. COMPARISON: Comparison is made with the prior examination dated 11/20/2022. FINDINGS: The bone mineral density of the lumbar spine is 0.971 with a T-score of -1.7, and a Z-score of -1.0. This represents a BMD change of -0.3% compared to the prior exam. This is not statistically significant. The bone mineral density of the left total hip is 0.995 with a T-score of -0.1, and a Z-score of 0.5. This represents BMD change of -2.8% compared to the prior exam. This is not statistically significant. The bone mineral density of the left femoral neck is 0.934 with a T-score of -0.7, and a Z-score of 0.2. This represents BMD change of 4.9% compared to the prior exam. FRACTURE RISK: The FRAX index suggests a ten year probability of major osteoporotic fracture of 10.6%, and of hip fracture 0.4%. MM/XR DEXA axial skeleton IMPRESSION: Based on bone mineral density, and according to World Health Organization (WHO) criteria, the diagnosis is consistent with osteopenia. All bone density values are in grams per centimeter squared. At this facility, the least significant change in BMD with 95% confidence is 0.022 at the lumbar spine, 0.027 at the hip, and 0.023 at the distal 1/3 radius. Electronically signed by: Chet Sloan MD 11/23/2024 07:34 AM EST
== END 2024-11-19 14:14 | disposition home or self-care (01) ==
LOC: HO.MAMMO 14:13
PROVIDERS: Visit Provider Internal Medicine Medical Oncology
DX: Z13.820 Encounter for screening for osteoporosis (principal); M85.88 Other specified disorders of bone density and structure, other site
CPT/HCPCS: 77080

== ENCOUNTER → 2024-11-19 15:00 | Outpatient (BNV) | payer BC, SELFPAY | PROVIDERS: Visit Provider Radiology Diagnostic Radiology | DX: E28.39 Other primary ovarian failure (principal) | CPT/HCPCS: 77080 ==

== ENCOUNTER 2024-11-23 09:46 | Outpatient (AMB) | payer BC, SELFPAY ==
--- NOTE | 2024-11-23 09:56 | A.OFFVIS_ITS ---
Vital Signs 3 11/23/24 10:04 Height 5 ft Weight 171 lb 2 oz BMI 33.4 BP 146/64 H Blood Pressure Location Rt brachial Position Sitting Pulse 69 Intake Visit Reasons: 1 mth fu S/P Lt brst lumpectomy w/seed & Lt SN bx Intake Note: Patient is seen in office for one month follow up visit, post left breast lumpectomy. Pt c/o: left side near the back of axilla has some muscle pain, seen oncologist waiting on results to see next step Conveyor Installer Required: No Internet Marketing Analyst: Internet Marketing Analyst Present Accompanied by: Self / Same As Patient Allergies latex [LATEX] Allergy (Intermediate, Verified 11/23/24 09:56) RASH ENVIRONMENTAL Allergy (Mild, Uncoded 11/23/24 09:56) HAYFEVER HPI Comments Details: 59-year-old female patient with a recent diagnosis of invasive lobular carcinoma and lobular carcinoma in-situ of the left breast and a prior history of ductal carcinoma in situ right breast returning for follow-up breast examination.? She is a former patient of Dr. Will found on right breast stereotactic guided core biopsy to have atypical ductal hyperplasia.? She subsequently underwent a right breast lumpectomy with needle localization on 10/19/2012 which revealed multifocal ductal carcinoma in situ with clear margins.? Breast MRI was done for further assessment of the multifocality but was somewhat difficult to interpret.? She underwent radiation therapy which was completed in 02/08/2013.? She did develop some lymphedema in the breast which intermittently is causing some discomfort.? She denied lymphedema in the arm.? Her family history is significant for 1 full sister and 1/2 sister with breast cancer.? BRCA testing was performed and negative.? A mammogram on 11/17/2020 revealed no significant changes from the prior study (BI-RADS 2:? Benign).? Her lifetime risk of breast cancer was determined to be 31%, well above the 20% threshold placing her at high risk for recurrent breast cancer.? On 09/13/2021 she underwent MRI of the breast. This revealed a non mass enhancement measuring 0.7 cm in the left breast at the 12 o'clock position. This was felt to be suspicious an MR guided biopsy recommended. She underwent MR guided biopsy on 10/02/2021. Pathology revealed sclerosing papilloma, no atypia or carcinoma was seen. The papilloma was present in 1 tissue fragment in each block of tissue measuring up to 4 mm in greatest diameter. 05/08/2022: Left breast lumpectomy with needle localization. Path revealed residual sclerosing papilloma; margins uninvolved; negative for atypia or malignancy. Background breast parenchyma with prior biopsy site changes, atypical lobular hyperplasia (ALH), radial sclerosing lesion, sclerosing adenosis and papillary cystic apocrine metaplasia. Breast MRI performed on 09/02/2024 revealed a left breast density in the 03:00 o'clock location measuring approximately 1.5 cm in diameter felt to be suspicious for malignancy. Evaluation with ultrasound on 09/14/2024 confirmed the density which was felt to be suspicious therefore a biopsy was performed under ultrasound guidance on 09/20/2024. Subsequent pathology revealed invasive lobular carcinoma with atypical lobular hyperplasia and lobular carcinoma in- situ. She underwent a left breast lumpectomy with sentinel node biopsy as a short-stay surgery on 10/06/2024. Pathology revealed invasive lobular carcinoma, grade 2, 17 mm with lobular carcinoma in-situ. Margins were felt to be negative. One of 2 sentinel lymph nodes were positive for metastatic carcinoma (pT1c pN1a). She was evaluated by Dr. Dennis but is awaiting the Oncotype studies. She will be evaluated by radiation oncology once the Oncotype studies are complete. [facility] Medical History Knee pain, right At high risk for breast cancer Tinnitus Hypersomnia Vision problem Anemia Restless legs Snoring COVID-19 vaccine series completed Abnormal magnetic resonance imaging of left breast Chest pain Dysphagia Annual physical exam Otitis externa Blood sugar increased DCIS (ductal carcinoma in situ) of breast Hypersomnia Compression fracture of L2 Insomnia Obesity (BMI 30-39.9) Hypercholesterolemia Lumbar degenerative disc disease Carpal tunnel syndrome Migraine Pulmonary nodule Allergic rhinitis Irritable bowel syndrome GERD (gastroesophageal reflux disease) Asthma Hypertension Breast cancer Allergic sinusitis Cervical radiculopathy Surgical History History of lumpectomy of left breast (10/06/24) History of lumpectomy of left breast (05/08/22) H/O colonoscopy H/O breast biopsy Status post total abdominal hysterectomy History of lumpectomy of right breast History of cholecystectomy Family History Father Diabetes Hypertension Myocardial infarction Mother Throat cancer Diabetes Hypertension Breast lump Sister Breast cancer Brother Myocardial infarction CVD (cardiovascular disease) Substance abuse Sister Breast cancer Son Diabetes Social History Household Members: Spouse Housing: House Are you a primary nanny caregiver to a significant other at home: No Do you presently have visiting nurse or other home services: No Alcohol intake: current Alcohol intake frequency: does not drink Alcohol type: beer and wine Patient Tobacco Use Status: Never used Tobacco Tobacco use type: Cigarette e-Cigarette/Vaping Use: Never Used Second Hand Smoke Exposure: No service: No Current occupational status: employed Current occupational exposures/hazards: No Cognitive needs: No Hearing needs: No Vision needs: No Physical Exam Const General: healthy appearing and no acute distress Nutritional Appearance: well nourished Orientation/consciousness: patient oriented x3 Limitations: no limitations Chest Other: Left breast: Well-healed incision in the left breast, slight tenderness to palpation throughout the breast especially in the lower quadrants. No skin change, nipple discharge, palpable mass, or enlarged lymph nodes. Right breast: No skin change, nipple discharge, palpable mass, or enlarged lymph nodes. Well-healed incision in the upper outer quadrant with palpable tenderness Chest/axillae images: 2 1. 2. Resp Effort & Inspection: normal respiratory effort, no audible wheezes, no cough and no respiratory distress GI Inspection: Yes normal to inspection Skin General skin exam: no rashes or lesions noted Neuro General: patient oriented x3 Extrem General: No edema Assessment & Plan Assessment & Plan (1) Invasive lobular carcinoma of breast in female: Comment: September 2024 left breast lumpectomy Code(s): C50.919 - Malignant neoplasm of unspecified site of unspecified female breast Category: Medical Plan 59-year-old female patient presenting with an abnormal breast MRI confirmed on a left breast ultrasound to be a density in the 3 o'clock position. Subsequent ultrasound-guided core biopsy confirmed a left breast invasive lobular carcinoma with lobular carcinoma in-situ and atypical lobular hyperplasia. She is now status post left breast lumpectomy with sentinel node biopsy. Pathology confirmed invasive lobular carcinoma with LCIS, 1 of 2 sentinel lymph nodes positive for metastatic disease, ER/NM positive, HER2 Pipe negative. Examination today revealed no suspicious findings with well-healed incisions in bilateral breasts. She will continue to follow up with Dr. Dennis and with Radiation Oncology. I recommended follow-up examination in 3 months. She will be due for annual screening mammogram in 01/2025. Coding Level of Care Code Global (08651) Diagnoses Invasive lobular carcinoma of breast in female C50.919
[2024-11-23 10:04] VITALS: BP 146/64; PULSE 69; BMI 33.4
== END 2024-11-23 10:15 | disposition home or self-care (01) ==
PROVIDERS: PCP Internal Medicine; Visit Provider Surgery
DX: C50.919 Malignant neoplasm of unspecified site of unspecified female breast (principal)
CPT/HCPCS: 99024

== ENCOUNTER 2025-01-20 08:39 | Outpatient (AMB) | payer BC, SELFPAY ==
[2025-01-20 08:49] VITALS: BP 128/76; PULSE 81; O2SAT 95; BMI 33.2
--- NOTE | 2025-01-20 08:49 | A.OFFPC_ITS ---
Vital Signs 01/20/25 08:49 Height 5 ft Weight 170 lb BMI 33.2 BP 128/76 Blood Pressure Location Lt brachial Position Sitting Pulse 81 Pulse Source Pulse Oximeter Pulse Oximetry (%) 95 Oxygen Delivery Method Room Air Intake Visit Reasons: ADELINE, breast cancer - see comments Intake Note: patient came in today with a cough, congestion. Allergies latex [LATEX] Allergy (Intermediate, Verified 01/20/25 08:50) RASH ENVIRONMENTAL Allergy (Mild, Uncoded 01/20/25 08:50) HAYFEVER Medication List - Last Reconciled 01/20/25 by Aniceto Levy MD albuterol sulfate 90 mcg/actuation 2 puffs inhalation Q6H PRN azithromycin (Zithromax) For 250 mg dose pack: take 500 mg today (day 1), then 250 mg for 4 days (days 2-5) PO beclomethasone dipropionate 80 mcg/actuation (Qvar RediHaler) 2 inhalations inhalation BID 30 days bupropion HCl XL 150 mg PO QAM cholecalciferol (vitamin D3) 25 mcg PO DAILY clotrimazole 1% 1 appl topical BID 4 weeks famotidine (Pepcid) 20 mg PO BEDTIME fluoxetine 40 mg PO DAILY hydrochlorothiazide 25 mg PO DAILY hydroxyzine pamoate 1 - 2 caps PO BEDTIME PRN letrozole 2.5 mg PO DAILY lisinopril 5 mg PO DAILY mirtazapine 15 mg PO BEDTIME montelukast 10 mg PO DAILY ondansetron 4 mg PO Q6H prazosin 1 mg PO BEDTIME simvastatin 5 mg PO BEDTIME tramadol 50 mg PO DAILY PRN Tobacco use date assessed: 01/20/25 Dental Screening Dental Screen Date: 01/20/25 Did you have a dental visit in the last 12 months?: No Did you have a dental problem in the last 6 months where you did not have access to dental care?: No Was dental information given to patient?: Patient has dentist HPI ADELINE, breast cancer - see comments HPI Details cough , 5 days , chills before s, sob, has sore throat, , wheezing, PFSH Medical History Knee pain, right At high risk for breast cancer Tinnitus Hypersomnia Vision problem Anemia Restless legs Snoring COVID-19 vaccine series completed Abnormal magnetic resonance imaging of left breast Chest pain Dysphagia Annual physical exam Otitis externa Blood sugar increased DCIS (ductal carcinoma in situ) of breast Hypersomnia Compression fracture of L2 Insomnia Obesity (BMI 30-39.9) Hypercholesterolemia Lumbar degenerative disc disease Carpal tunnel syndrome Migraine Pulmonary nodule Allergic rhinitis Irritable bowel syndrome GERD (gastroesophageal reflux disease) Asthma Hypertension Breast cancer Allergic sinusitis Cervical radiculopathy Surgical History History of lumpectomy of left breast (10/06/24) History of lumpectomy of left breast (05/08/22) H/O colonoscopy H/O breast biopsy Status post total abdominal hysterectomy History of lumpectomy of right breast History of cholecystectomy Family History Father Diabetes Hypertension Myocardial infarction Mother Throat cancer Diabetes Hypertension Breast lump Sister Breast cancer Brother Myocardial infarction CVD (cardiovascular disease) Substance abuse Sister Breast cancer Son Diabetes Social History Household Members: Spouse Housing: House Are you a primary care transition coordinator to a significant other at home: No Do you presently have visiting nurse or other home services: No Alcohol intake: current Alcohol intake frequency: does not drink Alcohol type: beer and wine Patient Tobacco Use Status: Never used Tobacco Tobacco use type: Cigarette e-Cigarette/Vaping Use: Never Used Second Hand Smoke Exposure: No service: No Current occupational status: employed Current occupational exposures/hazards: No Cognitive needs: No Hearing needs: No Vision needs: Yes Questionnaire PHQ-9 Over the last 2 weeks, how often have you been bothered by any of the following problems? 1. Little interest or pleasure in doing things: more than half the days 2. Feeling down, depressed, or hopeless: more than half the days 3. Trouble falling or staying asleep, or sleeping too much: more than half the days 4. Feeling tired or having little energy: more than half the days 5. Poor appetite or overeating: not at all 6. Feeling bad about yourself - or that you are a failure or have let yourself or your family down: not at all 7. Trouble concentrating on things, such as reading the newspaper or watching television: not at all 8. Moving or speaking so slowly that other people could have noticed. Or the opposite - being so fidgety or restless that you have been moving around a lot more than usual: not at all 9. Thoughts that you would be better off or of hurting yourself in some way: not at all Total score: 8 Depression Screening Interpretation: Positive Depression Screening Done: Yes 99435 - PHQ-9 Billing: Yes Source: Developed by Drs. Chet Park, Ely Monzon, Kali Gonzalez and colleagues, with an educational jocelyne from [employer]. Thrive Questionnaire Date Thrive assessed: 01/20/25 I am a: Patient What is your living situation today?: I have a steady place to live Within the past 12 months, did the food you bought not last and you didn't have the money to get more?: Never true Within the past 12 months, did you worry whether your food would run out before you got money to buy more?: Never true Do you have trouble paying for medicines?: No Do you have trouble getting transportation to medical appointments?: No Do you have trouble paying your heating and electricity bill?: No Do you have trouble taking care of your child, family member or friend?: No Do you have trouble with day-to-day activities such as bathing, preparing meals, shopping, managing finances, etc.?: No Are you currently unemployed and looking for a job?: No Are you interested in more education?: No Currently or been in a relationship where the following occur: No concerns reported THRIVE Score: 0 AUDIT C Alcohol Use Questionnaire (AUDIT-C) 1. How often do you have a drink containing alcohol?: Monthly or less 2. How many drinks containing alcohol do you have on a typical day when you are drinking?: 1 or 2 3. How often do you have six or more drinks on one occasion?: Never Total Score: 1 Score Reviewed/Action Taken: No ADELINE-7 AMB Questionnaire ADELINE-7 Date ADELINE - 7 assessed: 01/20/25 Feeling nervous, anxious, or on edge: 1 = Several days Not being able to stop or control worryin = Not at all Worrying too much about different things: 1 = Several days Trouble relaxin = Not at all Being so restless that it is hard to sit still: 0 = Not at all Becoming easily annoyed or irritable: 0 = Not at all Feeling afraid as if something awful might happen: 0 = Not at all Total ADELINE-7 score (0-4 normal; 5-9 mild; 10-14 moderate; 15-21 severe): 2 Source: Developed by Drs. Chet Park, Ely Monzon, Kali Gnozalez and colleagues, with an educational jocelyne from [employer]. Physical exam (Primary Care) Vital Signs: Last Vital Signs Pulse 81 01/20/25 08:49 BP 128/76 01/20/25 08:49 Pulse Ox 95 01/20/25 08:49 Oxygen Delivery Method Room Air 01/20/25 08:49 BMI result Body Mass Index 33.2 Tobacco/Smoking Status: Tobacco use Status Tobacco use date assessed 01/20/25 01/20/25 08:56 Patient Tobacco Use Status Never used Tobacco 01/20/25 08:56 Tobacco use type Cigarette 01/20/25 08:56 e-Cigarette/Vaping Use Never Used 01/20/25 08:56 PHQ-9: PHQ-9 Score PHQ-9: Total score 8 01/20/25 09:35 Depression Screening Interpretation: Positive Thrive Assessment: Date of Thrive Assessment Date Thrive assessed 01/20/25 01/20/25 08:56 Currently or been in a relationship where the following occur: No concerns reported Const General: alert; No acute distress Eyes Conjunctivae: conjunctivae normal Resp Other: Rhonchi on the rightlung muniz. No wheezing no basal crackles Cardio Rate: regular rate Rhythm: regular rhythm GI Inspection: Yes normal to inspection Extrem General: Yes normal to inspection and No edema Coding Level of Care Code Est Pt Level 4 (93900) Complex EM visit Add On G2211 Diagnoses Breast cancer, left C50.912 Obesity (BMI 30-39.9) E66.9 Essential hypertension I10 Hypertension type: essential hypertension Mild intermittent asthma without complication J45.20 Asthma complication type: uncomplicated Asthma persistence: intermittent Asthma severity: mild Gastroesophageal reflux disease without esophagitis K21.9 Esophagitis presence: without esophagitis Hypercholesterolemia E78.00 Impaired glucose tolerance R73.02 Generalized anxiety disorder F41.1 Acute bronchitis J20.9 Additional Codes PHQ-9 - 90080 - PHQ-9 Billing: Yes ([id number]) Assessment & Plan Assessment & Plan (1) Breast cancer, left: Code(s): C50.912 - Malignant neoplasm of unspecified site of left female breast Category: Medical Plan: patient presently having post lumpectomy radiation continues to follow-up with Hematology-Oncology in the surgeon (2) Obesity (BMI 30-39.9): Code(s): E66.9 - Obesity, unspecified Category: Medical Plan: diet and exercise (3) Hypertension: Code(s): I10 - Essential (primary) hypertension Category: Medical Qualifiers: Hypertension type: essential hypertension Qualified Code(s): I10 - Essential (primary) hypertension Plan: Continue with blood pressure medication. Decrease salt intake and exercise on hydrochlorothiazide 25 mg once a day lisinopril 5 mg once a day (4) Asthma: Code(s): J45.909 - Unspecified asthma, uncomplicated Category: Medical Qualifiers: Asthma complication type: uncomplicated Asthma persistence: intermittent Asthma severity: mild Qualified Code(s): J45.20 - Mild intermittent asthma, uncomplicated Plan: continue with albuterol inhaler as needed and on QVAR for controller (5) GERD (gastroesophageal reflux disease): Code(s): K21.9 - Gastro-esophageal reflux disease without esophagitis Category: Medical Qualifiers: Esophagitis presence: without esophagitis Qualified Code(s): K21.9 - Gastro-esophageal reflux disease without esophagitis Plan: Avoid the foods that causes that usually spicy foods, tomato products, juices, coffee, soda and foods that your sensitive to. After eating do not lie down, allow 3-4 hours before in lie down. And keep the head of bed above 30 degrees to avoid the acid from going up. (6) Hypercholesterolemia: Code(s): E78.00 - Pure hypercholesterolemia, unspecified Category: Medical Plan: Avoid fried foods, chicken skin, eggs, butter margarine, pastries and meat. Be it pork or beef they have a lot of cholesterol LDL goal of less than 130 and triglyceride of less than 150 patient on simvastatin 5 mg at bedtime (7) Impaired glucose tolerance: Code(s): R73.02 - Impaired glucose tolerance (oral) Category: Medical Plan: Decrease the amount of carbohydrate intake, pasta, bread, rice and potatoes are all sugar and that is aside from all the sweet stuff, remember that fruits are good but they are Sweet also. (8) Generalized anxiety disorder: Comment: Counselling and psychiatry [facility] Code(s): F41.1 - Generalized anxiety disorder Category: Medical Plan: Continuing with present therapy and counseling. (9) Acute bronchitis: Code(s): J20.9 - Acute bronchitis, unspecified Category: Medical Plan: increase oral fluids Plan History of Present Illness The patient is a 59-year-old female presenting for a follow-up on her chronic medical conditions including essential hypertension, hypercholesterolemia, and post-operative care for breast cancer. The patient's medical history is significant for left breast cancer diagnosed in 2011, treated with lumpectomy and radiation, with continued follow-up necessary. She has also been diagnosed with essential hypertension, managed with hydrochlorothiazide and lisinopril. Her last cholesterol test in February 2018 revealed an elevated LDL level of 498. Additionally, the patient noted glucose intolerance and knee pain, associated with her previous surgeries and treatments. Laboratory results from December 2017 indicated stable blood and platelet counts, electrolyte levels, kidney function, and mildly elevated blood sugar levels. Health Maintenance - Regular monitoring of blood pressure - Ongoing management of hypercholesterolemia with lipid profile evaluation - Continued management and follow-up for breast cancer post-treatment - Monitoring blood glucose levels due to glucose intolerance Social History - No specific social history details were provided in the conversation. Review of Systems - Musculoskeletal: Reports knee pain Physical Exam Results - Labs: Last cholesterol test in February 2018 with an LDL of 498 - Labs: Blood work from December 2017 with normal results Plan We will maintain the management of essential hypertension with the current medication regimen. Due to elevated cholesterol, we should evaluate her simvastatin therapy and contemplate adjustments. Her glucose intolerance should be monitored, and knee pain will be assessed during follow-ups. Breast cancer follow-up is crucial to observe any post-radiation complications and to ensure no recurrence. Patient was informed and verbally consented to the use of an ambient scribe for clinic note documentation during this visit. Discussion Notes I discussed with the patient the importance of continuing her current hypertension medications, acknowledged her ongoing cholesterol management with simvastatin, and the necessity of further evaluation considering the elevated LDL levels from 2018. We underscored the importance of continuous breast cancer follow-up and discussed possible impacts on her health. Knee pain was noted, and we agreed on further assessments as necessary. We covered potential implications for glucose intolerance and the need for routine monitoring. The patient understands the plan and agrees with the follow-up strategy. Patient Instructions - Continue taking hydrochlorothiazide and lisinopril as prescribed - Monitor blood pressure regularly - Follow up with routine lab work, particularly cholesterol levels - Attend scheduled follow-up appointments for breast cancer - Report any worsening of knee pain or new symptoms immediately - Maintain any advised lifestyle modifications for glucose control and overall health Orders: Orders Comprehensive Met. Panel Today E78.00 - Pure hypercholesterolemia, unspecified Free T4 (Free Thyroxine) Today E78.00 - Pure hypercholesterolemia, unspecified Thyroid Stimulating Hormone Today E78.00 - Pure hypercholesterolemia, unspecified Vitamin D 25-OH Total Today E78.00 - Pure hypercholesterolemia, unspecified Complete Blood Count Auto Diff Today E78.00 - Pure hypercholesterolemia, unspecified Hemoglobin A1c Today E78.00 - Pure hypercholesterolemia, unspecified Lipid Panel Today E78.00 - Pure hypercholesterolemia, unspecified Vitamin B12 and Folate Today E78.00 - Pure hypercholesterolemia, unspecified UA CC w/rflx Micro + Cult Today E78.00 - Pure hypercholesterolemia, unspecified, R30.0 - Dysuria Medications: New azithromycin (Zithromax) For 250 mg dose pack: take 500 mg today (day 1), then 250 mg for 4 days (days 2-5) PO 6 tabs 0RF J20.9 - Acute bronchitis, unspecified Refilled albuterol sulfate 90 mcg/actuation 2 puffs inhalation Q6H PRN 8.5 grams 0RF for muscle spasm J45.20 - Mild intermittent asthma, uncomplicated
== END 2025-01-20 09:43 | disposition home or self-care (01) ==
PROVIDERS: PCP Internal Medicine; Visit Provider Internal Medicine
DX: C50.912 Malignant neoplasm of unspecified site of left female breast (principal); E66.9 Obesity, unspecified; Z68.33 Body mass index [BMI] 33.0-33.9, adult; I10 Essential (primary) hypertension; J45.20 Mild intermittent asthma, uncomplicated; K21.9 Gastro-esophageal reflux disease without esophagitis; E78.00 Pure hypercholesterolemia, unspecified; R73.02 Impaired glucose tolerance (oral); F41.1 Generalized anxiety disorder; J20.9 Acute bronchitis, unspecified

== ENCOUNTER → 2025-01-20 08:39 | Outpatient (BNVA) | payer BC, SELFPAY | PROVIDERS: PCP Internal Medicine; Visit Provider Internal Medicine | DX: C50.912 Malignant neoplasm of unspecified site of left female breast (principal); E66.9 Obesity, unspecified; Z68.33 Body mass index [BMI] 33.0-33.9, adult; I10 Essential (primary) hypertension; J45.20 Mild intermittent asthma, uncomplicated; K21.9 Gastro-esophageal reflux disease without esophagitis; E78.00 Pure hypercholesterolemia, unspecified; R73.02 Impaired glucose tolerance (oral); F41.1 Generalized anxiety disorder; J20.9 Acute bronchitis, unspecified; Z79.899 Other long term (current) drug therapy | CPT/HCPCS: 96127 ==

== ENCOUNTER 2025-02-22 09:39 | Outpatient (REF) | payer BC, SELFPAY ==
[2025-02-22 10:19] LABS: MANUAL DIFF FLAG NO
[2025-02-22 11:08] LABS: Basophils Percent Auto 0.6 % (0-2); Eosinophils Absolute Auto 0.2 X10*3/uL (0.0-0.4); Eosinophils Percent Auto 2.5 % (0-4); Hematocrit 39.9 % (37.0-47.0); Hemoglobin 13.8 g/dl (12.0-16.0); Imm Gran Abs Auto 0.03 X10*3/uL (0.00-0.03); Imm Gran Pct Auto 0.5 % (0.0-0.4); Lymphocytes Percent Auto 14.8 % (20-40); Mean Corpuscular HGB Conc 34.6 g/dl (31.0-35.0); Mean Corpuscular Hemoglobin 29.2 pg (27.0-33.0); Mean Corpuscular Volume 84.4 fL (80.0-98.0); Mean Platelet Volume 8.9 fL (9.4-12.3); Monocytes Absolute Auto 0.7 X10*3/uL (0.1-1.2); Monocytes Percent Auto 10.7 % (2-11); Neutrophils Absolute Auto 4.6 x10*3/uL (2.0-8.3); Neutrophils Percent Auto 70.9 % (45-73); Platelet Count 222 X10*3/uL (160-400); Red Blood Count 4.73 X10*6/uL (4.20-5.50); Red Cell Distribution Width 13.2 % (11.0-16.0); White Blood Count 6.4 X10*3/uL (4.8-10.8)
[2025-02-22 11:08] LABS: Appearance Urine Clear; Color Urine Yellow; Glucose Urine UA Negative (Negative); Leukocyte Esterase Urine Negative (Negative); Nitrite Urine Negative (Negative); Urine Blood Negative (Negative); Urine Ketones Negative (Negative); Urine Protein Negative (Neg-Trace)
[2025-02-22 11:19] LABS: Estimated Average Glucose 123 mg/dL; Hemoglobin A1c % 5.9 % (<6.0); Total Hemoglobin (HGBA1C) 3613.7519 umol/L
[2025-02-22 11:28] LABS: Alanine Aminotransferase 26 U/L (0-31); Albumin Level 4.2 g/dL (3.5-5.0); Alkaline Phosphatase 86 U/L (39-117); Anion Gap 11 (12-20); Aspartate Amino Transferase 21 U/L (5-31); Bilirubin Total 0.5 mg/dL (0.0-1.0); Blood Urea Nitrogen 16 mg/dL (9-16); Calcium 10.2 mg/dL (8.4-10.2); Carbon Dioxide 30 mmol/L (22-29); Chloride 104 mmol/L (96-108); Cholesterol 203 mg/dL (<200); Estimated Glomerular Filt Rate > 60; Glucose Random 101 mg/dL (60-115); HDL Cholesterol 58 mg/dL (>40); LDL Cholesterol Calculated 112 mg/dL (<100); Sodium 141 mmol/L (135-145); Total Protein 7.2 g/dL (6.5-8.0); Triglycerides 168 mg/dL (<150)
[2025-02-22 11:36] LABS: Free T4 (Free Thyroxine) 0.98 ng/dL (0.71-1.85); Thyroid Stimulating Hormone 1.06 uIU/mL (0.32-4.0); Vitamin D 25-OH Total 42.7 ng/mL (>30)
[2025-02-22 11:51] LABS: Folate 11.9 ng/mL (> or = 4.0); Vitamin B12 275 pg/mL (200-900)
== END 2025-02-22 09:40 | disposition home or self-care (01) ==
LOC: HO.LAB 09:39
PROVIDERS: PCP Internal Medicine; Visit Provider Internal Medicine
DX: E78.00 Pure hypercholesterolemia, unspecified (principal); R30.0 Dysuria; Z13.1 Encounter for screening for diabetes mellitus
CPT/HCPCS: 36415; 80053; 80061; 81003; 82306; 82607; 82746; 83036; 84439; 84443; 85025

== ENCOUNTER 2025-02-22 10:25 | Outpatient (AMB) | payer BC, SELFPAY ==
--- NOTE | 2025-02-22 10:51 | A.OFFVIS_ITS ---
Vital Signs 3 02/22/25 11:01 Height 5 ft Weight 172 lb BMI 33.6 BP 165/75 H Blood Pressure Location Lt brachial Position Sitting Pulse 68 Intake Visit Reasons: 3 month follow up, breast exam Intake Note: Patient is seen in office for 3 month follow up visit, breast exam. Pt c/o: has phantom pain in the left breast, sharp shooting pain, comes and goes, denies any other concerns, all done with radiation, taking Letrozole side effects nausea mm:09/20/24 * Has F/Up Yearly Sched:03/24/25 * Wireless Cellular Technician Required: No Sql Server Consultant: Sql Server Consultant Present Accompanied by: Self / Same As Patient Allergies latex [LATEX] Allergy (Intermediate, Verified 02/22/25 11:01) RASH ENVIRONMENTAL Allergy (Mild, Uncoded 02/22/25 11:01) HAYFEVER Medication List - Last Reconciled 02/22/25 by David Rivas MD albuterol sulfate 90 mcg/actuation 2 puffs inhalation Q6H PRN azithromycin (Zithromax) For 250 mg dose pack: take 500 mg today (day 1), then 250 mg for 4 days (days 2-5) PO beclomethasone dipropionate 80 mcg/actuation (Qvar RediHaler) 2 inhalations inhalation BID 30 days bupropion HCl XL 150 mg PO QAM cholecalciferol (vitamin D3) 25 mcg PO DAILY clotrimazole 1% 1 appl topical BID 4 weeks famotidine (Pepcid) 20 mg PO BEDTIME fluoxetine 40 mg PO DAILY hydrochlorothiazide 25 mg PO DAILY hydroxyzine pamoate 1 - 2 caps PO BEDTIME PRN letrozole 2.5 mg PO DAILY lisinopril 5 mg PO DAILY mirtazapine 15 mg PO BEDTIME montelukast 10 mg PO DAILY ondansetron 4 mg PO Q6H prazosin 1 mg PO BEDTIME simvastatin 5 mg PO BEDTIME tramadol 50 mg PO DAILY PRN HPI Comments Details: 59-year-old female patient diagnosed with an invasive lobular carcinoma and lobular carcinoma in-situ of the left breast and a prior history of ductal carcinoma in situ right breast returning for follow-up breast examination.? She is a former patient of Dr. Will found on right breast stereotactic guided core biopsy to have atypical ductal hyperplasia.? She subsequently underwent a right breast lumpectomy with needle localization on 10/19/2012 which revealed multifocal ductal carcinoma in situ with clear margins.? Breast MRI was done for further assessment of the multifocality but was somewhat difficult to interpret.? She underwent radiation therapy which was completed in 02/08/2013.? She did develop some lymphedema in the breast which intermittently is causing some discomfort.? She denied lymphedema in the arm.? Her family history is significant for 1 full sister and 1/2 sister with breast cancer.? BRCA testing was performed and negative.? A mammogram on 11/17/2020 revealed no significant changes from the prior study (BI-RADS 2:? Benign).? Her lifetime risk of breast cancer was determined to be 31%, well above the 20% threshold placing her at high risk for recurrent breast cancer.? On 09/13/2021 she underwent MRI of the breast. This revealed a non mass enhancement measuring 0.7 cm in the left breast at the 12 o'clock position. This was felt to be suspicious and a MR guided biopsy was performed on 10/02/2021. Pathology revealed sclerosing papilloma, no atypia or carcinoma was seen. The papilloma was present in 1 tissue fragment in each block of tissue measuring up to 4 mm in greatest diameter. 05/08/2022: Left breast lumpectomy with needle localization. Path revealed residual sclerosing papilloma; margins uninvolved; negative for atypia or malignancy. Background breast parenchyma with prior biopsy site changes, atypical lobular hyperplasia (ALH), radial sclerosing lesion, sclerosing adenosis and papillary cystic apocrine metaplasia. Breast MRI performed on 09/02/2024 revealed a left breast density in the 03:00 o'clock location measuring approximately 1.5 cm in diameter felt to be suspicious for malignancy. Evaluation with ultrasound on 09/14/2024 confirmed the density which was felt to be suspicious therefore a biopsy was performed under ultrasound guidance on 09/20/2024. Subsequent pathology revealed invasive lobular carcinoma with atypical lobular hyperplasia and lobular carcinoma in- situ. She underwent a left breast lumpectomy with sentinel node biopsy as a short-stay surgery on 10/06/2024. Pathology revealed invasive lobular carcinoma, grade 2, 17 mm with lobular carcinoma in-situ. Margins were felt to be negative. One of 2 sentinel lymph nodes were positive for metastatic carcinoma (pT1c pN1a). She was evaluated by Dr. Dennis and the Oncotype DX found to be 7. She underwent radiation therapy and completed this 2 weeks ago. She developed an extensive burn on the left breast skin which is gradually resolving. She was started on letrozole and tolerating this well. She was due for her annual mammogram but this will be delayed due to her recent completion of radiation therapy. [facility] Medical History Knee pain, right At high risk for breast cancer Tinnitus Hypersomnia Vision problem Anemia Restless legs Snoring COVID-19 vaccine series completed Abnormal magnetic resonance imaging of left breast Chest pain Dysphagia Annual physical exam Otitis externa Blood sugar increased DCIS (ductal carcinoma in situ) of breast Hypersomnia Compression fracture of L2 Insomnia Obesity (BMI 30-39.9) Hypercholesterolemia Lumbar degenerative disc disease Carpal tunnel syndrome Migraine Pulmonary nodule Allergic rhinitis Irritable bowel syndrome GERD (gastroesophageal reflux disease) Asthma Hypertension Breast cancer Allergic sinusitis Cervical radiculopathy Surgical History History of lumpectomy of left breast (10/06/24) History of lumpectomy of left breast (05/08/22) H/O colonoscopy H/O breast biopsy Status post total abdominal hysterectomy History of lumpectomy of right breast History of cholecystectomy Family History Father Diabetes Hypertension Myocardial infarction Mother Throat cancer Diabetes Hypertension Breast lump Sister Breast cancer Brother Myocardial infarction CVD (cardiovascular disease) Substance abuse Sister Breast cancer Son Diabetes Social History Household Members: Spouse Housing: House Are you a primary career and technology education teacher to a significant other at home: No Do you presently have visiting nurse or other home services: No Alcohol intake: current Alcohol intake frequency: does not drink Alcohol type: beer and wine Patient Tobacco Use Status: Never used Tobacco Tobacco use type: Cigarette e-Cigarette/Vaping Use: Never Used Second Hand Smoke Exposure: No service: No Current occupational status: employed Current occupational exposures/hazards: No Cognitive needs: No Hearing needs: No Vision needs: Yes Review of Systems Const All systems reviewed & are unremarkable except as noted in HPI and below Physical Exam Vital Signs: Last Vital Signs Pulse 68 02/22/25 11:01 BP 165/75 H 02/22/25 11:01 BMI result Body Mass Index 33.6 Const General: healthy appearing and no acute distress Nutritional Appearance: well nourished Orientation/consciousness: patient oriented x3 Limitations: no limitations Chest Other: Left breast: Significant radiation change to the left breast extending up to the sternum and into the back. Well-healed incision in the left breast with some skin retraction. No nipple discharge, palpable mass, or enlarged lymph nodes. Right breast: No skin change, nipple discharge, palpable mass, or enlarged lymph nodes. Well-healed incision in the upper outer quadrant with palpable tenderness in the lower outer quadrant. Chest/axillae images: 2 1. Incision upper outer quadrant 2. Radiation change Resp Effort & Inspection: normal respiratory effort, no audible wheezes, no cough and no respiratory distress GI Inspection: Yes normal to inspection Skin General skin exam: no rashes or lesions noted Neuro General: patient oriented x3 Extrem General: No edema Assessment & Plan Assessment & Plan (1) Invasive lobular carcinoma of breast in female: Comment: September 2024 left breast lumpectomy Code(s): C50.919 - Malignant neoplasm of unspecified site of unspecified female breast Category: Medical Plan 59-year-old female patient presenting with an abnormal breast MRI confirmed on a left breast ultrasound to be a density in the 3 o'clock position. Subsequent ultrasound-guided core biopsy confirmed a left breast invasive lobular carcinoma with lobular carcinoma in-situ and atypical lobular hyperplasia. She is now status post left breast lumpectomy with sentinel node biopsy. Pathology confirmed invasive lobular carcinoma with LCIS, 1 of 2 sentinel lymph nodes positive for metastatic disease, ER/NE positive, HER2 Pipe negative. Oncotype DX 7 therefore no benefit for chemotherapy. She completed radiation therapy approximately 2 weeks ago which was complicated by severe skin car. She was started on letrozole by Dr. Dennis. Examination today revealed postoperative and postradiation change to the left breast but no new suspicious findings. The right breast is normal as well. She is due for her annual screening mammogram however due to the recent radiation therapy, this should be delayed for several months. I recommended a follow-up examination in approximately 6 months. She will continue to follow up with Dr. Dennis as well. Coding Level of Care Code Est Pt Level 3 (25461) Diagnoses Invasive lobular carcinoma of breast in female C50.919
[2025-02-22 11:01] VITALS: BP 165/75; PULSE 68; BMI 33.6
== END 2025-02-22 11:12 | disposition home or self-care (01) ==
LOC: HO.HGS 10:25
PROVIDERS: PCP Internal Medicine; Visit Provider Surgery
DX: C50.919 Malignant neoplasm of unspecified site of unspecified female breast (principal)
CPT/HCPCS: 99213

== ENCOUNTER 2025-04-25 14:40 | Outpatient (AMB) | payer BC, SELFPAY ==
[2025-04-25 14:49] VITALS: BP 116/80; PULSE 84; O2SAT 95; BMI 33.9
--- NOTE | 2025-04-25 14:49 | MHC.PC.OV ---
Vital Signs 04/25/25 14:49 Height 5 ft Weight 173 lb 6 oz BMI 33.9 BP 116/80 Blood Pressure Location Lt brachial Position Sitting Pulse 84 Pulse Source Pulse Oximeter Pulse Oximetry (%) 95 Oxygen Delivery Method Room Air Intake Visit Reasons: annual exam/HTN, Cholesterol - see comments Foundation Relations Manager Required: No Accompanied by: Self / Same As Patient Allergies latex [LATEX] Allergy (Intermediate, Verified 04/25/25 14:50) RASH ENVIRONMENTAL Allergy (Mild, Uncoded 04/25/25 14:50) HAYFEVER Medication List - Last Reconciled 04/25/25 by Aniceto Levy MD albuterol sulfate 90 mcg/actuation 2 puffs inhalation Q6H PRN bupropion HCl XL 150 mg PO QAM cholecalciferol (vitamin D3) 25 mcg PO DAILY clotrimazole 1% 1 appl topical BID 4 weeks cyclobenzaprine 5 mg PO TID PRN famotidine (Pepcid) 20 mg PO BEDTIME fluoxetine 40 mg PO DAILY fluticasone furoate-vilanterol 100-25 mcg/dose (Breo Ellipta) 1 inh inhalation DAILY hydrochlorothiazide 25 mg PO DAILY hydroxyzine pamoate 1 - 2 caps PO BEDTIME PRN letrozole 2.5 mg PO DAILY lisinopril 5 mg PO DAILY mirtazapine 15 mg PO BEDTIME montelukast 10 mg PO DAILY ondansetron 4 mg PO Q6H prazosin 1 mg PO BEDTIME simvastatin 5 mg PO BEDTIME tramadol 50 mg PO DAILY PRN Tobacco use date assessed: 04/25/25 Dental Screening Dental Screen Date: 04/25/25 Did you have a dental visit in the last 12 months?: Yes Did you have a dental problem in the last 6 months where you did not have access to dental care?: No Was dental information given to patient?: Patient has dentist HPI annual exam/HTN, Cholesterol - see comments HPI Details PAtient decline PE today complains of L neck pain and low back pain- states has [place] also. went to field trip with nephew- Apr 08 2025 fall hx walking in the [place], did fall Location tender on the L side of the neck area, not the spine, also has lumbar pain PFSH Medical History Knee pain, right At high risk for breast cancer Tinnitus Hypersomnia Vision problem Anemia Restless legs Snoring COVID-19 vaccine series completed Abnormal magnetic resonance imaging of left breast Chest pain Dysphagia Annual physical exam Otitis externa Blood sugar increased DCIS (ductal carcinoma in situ) of breast Hypersomnia Compression fracture of L2 Insomnia Obesity (BMI 30-39.9) Hypercholesterolemia Lumbar degenerative disc disease Carpal tunnel syndrome Migraine Pulmonary nodule Allergic rhinitis Irritable bowel syndrome GERD (gastroesophageal reflux disease) Asthma Hypertension Breast cancer Allergic sinusitis Cervical radiculopathy Surgical History History of lumpectomy of left breast (10/06/24) History of lumpectomy of left breast (05/08/22) H/O colonoscopy H/O breast biopsy Status post total abdominal hysterectomy History of lumpectomy of right breast History of cholecystectomy Family History Father Diabetes Hypertension Myocardial infarction Mother Throat cancer Diabetes Hypertension Breast lump Sister Breast cancer Brother Myocardial infarction CVD (cardiovascular disease) Substance abuse Sister Breast cancer Son Diabetes Social History Household Members: Spouse Housing: House Are you a primary chronic care nurse to a significant other at home: No Do you presently have visiting nurse or other home services: No Alcohol intake: current Alcohol intake frequency: does not drink Alcohol type: beer and wine Patient Tobacco Use Status: Never used Tobacco Tobacco use type: Cigarette e-Cigarette/Vaping Use: Never Used Second Hand Smoke Exposure: No service: No Current occupational status: employed Current occupational exposures/hazards: No Cognitive needs: No Hearing needs: No Vision needs: Yes Questionnaire PHQ-9 Over the last 2 weeks, how often have you been bothered by any of the following problems? 1. Little interest or pleasure in doing things: more than half the days 2. Feeling down, depressed, or hopeless: more than half the days 3. Trouble falling or staying asleep, or sleeping too much: more than half the days 4. Feeling tired or having little energy: more than half the days 5. Poor appetite or overeating: not at all 6. Feeling bad about yourself - or that you are a failure or have let yourself or your family down: not at all 7. Trouble concentrating on things, such as reading the newspaper or watching television: not at all 8. Moving or speaking so slowly that other people could have noticed. Or the opposite - being so fidgety or restless that you have been moving around a lot more than usual: not at all 9. Thoughts that you would be better off or of hurting yourself in some way: not at all Total score: 8 Depression Screening Interpretation: Positive Depression Screening Done: Yes 78378 - PHQ-9 Billing: Yes Source: Developed by Drs. Chet Park, Ely Monzon, Kali Gonzalez and colleagues, with an educational jocelyne from [employer]. Thrive Questionnaire Date Thrive assessed: 04/25/25 I am a: Patient What is your living situation today?: I have a steady place to live Within the past 12 months, did the food you bought not last and you didn't have the money to get more?: Never true Within the past 12 months, did you worry whether your food would run out before you got money to buy more?: Never true Do you have trouble paying for medicines?: No Do you have trouble getting transportation to medical appointments?: No Do you have trouble paying your heating and electricity bill?: No Do you have trouble taking care of your child, family member or friend?: No Do you have trouble with day-to-day activities such as bathing, preparing meals, shopping, managing finances, etc.?: No Are you currently unemployed and looking for a job?: No Are you interested in more education?: No Please select the resources that you would like help with: None Currently or been in a relationship where the following occur: No concerns reported THRIVE Score: 0 AUDIT C Alcohol Use Questionnaire (AUDIT-C) 1. How often do you have a drink containing alcohol?: Monthly or less 2. How many drinks containing alcohol do you have on a typical day when you are drinking?: 1 or 2 3. How often do you have six or more drinks on one occasion?: Never Total Score: 1 Score Reviewed/Action Taken: No ADELINE-7 AMB Questionnaire ADELINE-7 Date ADELINE - 7 assessed: 04/25/25 Feeling nervous, anxious, or on edge: 1 = Several days Not being able to stop or control worryin = Not at all Worrying too much about different things: 1 = Several days Trouble relaxin = Not at all Being so restless that it is hard to sit still: 0 = Not at all Becoming easily annoyed or irritable: 0 = Not at all Feeling afraid as if something awful might happen: 0 = Not at all Total ADELINE-7 score (0-4 normal; 5-9 mild; 10-14 moderate; 15-21 severe): 2 Source: Developed by Drs. Chet Park, Ely Monzon, Kali Gonzalez and colleagues, with an educational jocelyne from [employer]. Review of Systems Const Denies poor appetite and Denies weakness Eyes Denies no additional complaints ENT Reports Normal hearing present, Denies dizziness, Denies nasal congestion, Denies tinnitus and Denies sore throat Card Denies chest pain, Denies syncope, Denies rapid heart rate and Denies dyspnea Resp Denies cough and Denies dyspnea GI Denies change in stool character, Reports constipation, Denies diarrhea, Denies nausea and Denies vomiting Denies urinary frequency, Denies difficulty voiding and Denies dysuria Neuro Reports Normal hearing present, Denies confusion, Denies dizziness, Denies syncope and Denies weakness Psych Denies confusion Physical exam (Primary Care) Vital Signs: Last Vital Signs Pulse 84 04/25/25 14:49 BP 116/80 04/25/25 14:49 Pulse Ox 95 04/25/25 14:49 Oxygen Delivery Method Room Air 04/25/25 14:49 BMI result Body Mass Index 33.9 Tobacco/Smoking Status: Tobacco use Status Tobacco use date assessed 04/25/25 04/25/25 14:52 Patient Tobacco Use Status Never used Tobacco 04/25/25 14:52 Tobacco use type Cigarette 04/25/25 14:52 e-Cigarette/Vaping Use Never Used 04/25/25 14:52 PHQ-9: PHQ-9 Score PHQ-9: Total score 8 04/25/25 15:28 Depression Screening Interpretation: Positive Thrive Assessment: Date of Thrive Assessment Date Thrive assessed 04/25/25 04/25/25 14:52 Currently or been in a relationship where the following occur: No concerns reported Const General: alert and awake; No confusion Orientation/consciousness: No confusion HENMT Head: Yes normocephalic Ears: external ears normal and TM's normal bilaterally Face and sinus: Yes normal facial exam Mouth: moist mucous membranes Throat: Yes tonsils normal Eyes Conjunctivae: conjunctivae normal Pupils: Equal, round and reactive pupils present and Pupil accommodation reflex normal Direct Ophthalmoscopy: normal light reflex Neck Neck: No lymphadenopathy Thyroid: Thyroid normal Chest Chest palpation & inspection: normal inspection of the chest Resp Effort & Inspection: normal respiratory effort and no audible wheezes Auscultation: clear to auscultation bilaterally, no crackles, no wheezes and lung sounds not diminished Cardio Rate: regular rate Rhythm: regular rhythm Peripheral pulses: radial pulses present and dorsalis pedis present GI Palpation (GI): no masses Auscultation: normal bowel sounds and normoactive bowel sounds Rectal Exam - Female: deferred Skin General skin exam: no rashes or lesions noted Rashes: no rashes Neuro General: deep tendon reflexes 2+ bilaterally and No confusion Cranial nerves: Yes Equal, round and reactive pupils present, Yes Midline tongue present, Yes Normal hearing present and Yes Ability to bilaterally elevate shoulders present Cognition (Neuro): normal cognition Gait exam (Neuro): Normal gait present Motor exam (neuro): 5/5 motor strength present throughout Deep tendon reflexes (DTR's): Right brachioradialis reflex intensity grade: 2+, Left brachioradialis reflex intensity grade: 2+, Right patellar reflex intensity grade: 2+ and Left patellar reflex intensity grade: 2+ Extrem General: No edema Coding Level of Care Code Est Pt Level 4 (11388) Est Pt Prev Care 40-64y(56554) Diagnoses Invasive lobular carcinoma of breast in female C50.919 Essential hypertension I10 Hypertension type: essential hypertension Mild intermittent asthma without complication J45.20 Asthma complication type: uncomplicated Asthma persistence: intermittent Asthma severity: mild Gastroesophageal reflux disease without esophagitis K21.9 Esophagitis presence: without esophagitis Hypercholesterolemia E78.00 Obesity (BMI 30-39.9) E66.9 Impaired glucose tolerance R73.02 Generalized anxiety disorder F41.1 Low back pain M54.50 Torticollis M43.6 Onychomycosis B35.1 Additional Codes PHQ-9 - 20224 - PHQ-9 Billing: Yes ([id number]) Assessment & Plan Assessment & Plan (1) Invasive lobular carcinoma of breast in female: Comment: September 2024 left breast lumpectomy Code(s): C50.919 - Malignant neoplasm of unspecified site of unspecified female breast Category: Medical Plan: Patient follows up with the Hematology Oncology and the surgeon (2) Hypertension: Code(s): I10 - Essential (primary) hypertension Category: Medical Qualifiers: Hypertension type: essential hypertension Qualified Code(s): I10 - Essential (primary) hypertension Plan: Continue with blood pressure medication. Decrease salt intake and exercise on hydrochlorothiazide 25 mg once a day lisinopril 5 mg once a day (3) Asthma: Code(s): J45.909 - Unspecified asthma, uncomplicated Category: Medical Qualifiers: Asthma complication type: uncomplicated Asthma persistence: intermittent Asthma severity: mild Qualified Code(s): J45.20 - Mild intermittent asthma, uncomplicated Plan: Continue with albuterol as needed (4) GERD (gastroesophageal reflux disease): Code(s): K21.9 - Gastro-esophageal reflux disease without esophagitis Category: Medical Qualifiers: Esophagitis presence: without esophagitis Qualified Code(s): K21.9 - Gastro-esophageal reflux disease without esophagitis Plan: Avoid the foods that causes that usually spicy foods, tomato products, juices, coffee, soda and foods that your sensitive to. After eating do not lie down, allow 3-4 hours before in lie down. And keep the head of bed above 30 degrees to avoid the acid from going up. (5) Hypercholesterolemia: Code(s): E78.00 - Pure hypercholesterolemia, unspecified Category: Medical Plan: Avoid fried foods, chicken skin, eggs, butter margarine, pastries and meat. Be it pork or beef they have a lot of cholesterol on simvastatin LDL goal of less than 130 and triglyceride of less than 150 (6) Obesity (BMI 30-39.9): Code(s): E66.9 - Obesity, unspecified Category: Medical Plan: Diet and exercise (7) Impaired glucose tolerance: Code(s): R73.02 - Impaired glucose tolerance (oral) Category: Medical Plan: Decrease the amount of carbohydrate intake, pasta, bread, rice and potatoes are all sugar and that is aside from all the sweet stuff, remember that fruits are good but they are Sweet also. (8) Generalized anxiety disorder: Comment: Counselling and psychiatry [facility] Code(s): F41.1 - Generalized anxiety disorder Category: Medical Plan: Continue with counseling and therapy (9) Low back pain: Code(s): M54.50 - Low back pain, unspecified Category: Medical (10) Torticollis: Code(s): M43.6 - Torticollis Category: Medical Plan: decline PT (11) Onychomycosis: Code(s): B35.1 - Tinea unguium Category: Medical Plan History of Present Illness The patient is a 59-year-old female presenting for a physical examination and management of multiple chronic conditions. The patient has a history of breast cancer diagnosed in 2011, with a recurrence in 2023, for which she underwent a lumpectomy and radiation therapy. She is currently on letrozole and follows up with hematology oncology and a surgeon. Her last mammogram was in January 2024, and she is due for a repeat in September. The patient has a history of hypertension managed with hydrochlorothiazide and lisinopril. She also has asthma, for which she uses albuterol as needed, and is awaiting a new inhaler prescription. The patient reports chronic low back pain, which has been exacerbated by a recent fall and is associated with numbness in her hands and sharp pains in her legs and hip. She has a history of lumbar compression fracture in 2018 and experiences difficulty with prolonged standing or sitting. She is considering physical therapy but has not yet pursued it due to cost concerns. The patient has a history of hypercholesterolemia, with her last LDL recorded at 112 mg/dL and triglycerides at 168 mg/dL. She is on simvastatin with a goal of reducing LDL to less than 130 mg/dL and triglycerides to less than 150 mg/dL. The patient has a vitamin B12 deficiency, with a recent level of 275, and has been advised to resume supplementation. She reports a fungal infection of the toenail, which she is managing with topical treatments, though she is hesitant to pursue systemic therapy due to the need for liver function monitoring. The patient has been experiencing migraines, which are currently affecting her vision, and she has not yet taken any medication for relief. Her blood work from March 28 showed normal blood count, electrolytes, renal function, and liver function, but her hemoglobin A1c was elevated at 5.9, indicating prediabetes. Health Maintenance - Mammogram: Last performed in January 2024, next due in September. - Bone density test: Last performed in November 2024. - Colon cancer screening: Last performed in 2016. - Blood work: Normal blood count, electrolytes, renal function, and liver function as of March 28. - Cholesterol management: LDL goal of less than 130 mg/dL and triglycerides less than 150 mg/dL. 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 - Functional status: Reports difficulty with prolonged standing or sitting due to back pain. Review of Systems - Musculoskeletal: Reports low back pain, pain in neck, hip, and legs. - Neurological: Reports migraines affecting vision, numbness in hands with prolonged positioning. - Dermatological: Reports fungal infection of the toenail. Physical Exam General: Cooperative, healthy appearing, comfortable, no acute distress and well developed Orientation: Patient oriented x3 Limitations: No limitations Head: Normal to inspection Ears: Hearing grossly normal bilaterally Nose: Normal external nose present Face and sinus: Normal facial exam Eyes: Appearance normal, both eyes and all related structures Neck: Pain when turning head, muscle pain noted Respiratory: Normal respiratory effort and able to speak in complete sentences. Clear to auscultation bilaterally Cardiovascular: Regular rate and rhythm. Normal S1 and S2 GI: Normal to inspection. Soft to palpation and nontender Skin: No rashes or lesions noted Neuro: Patient oriented x3 Extremities: Normal to inspection, reports sharp pain in leg and hip, numbness in hands if left in one position too long, fungal infection on big toe noted Results - Labs: Normal blood count, electrolytes, renal function, and liver function as of March 28. - Cholesterol: LDL 112 mg/dL, triglycerides 168 mg/dL as of February 22. - Vitamin B12: Low at 275. - Hemoglobin A1c: Elevated at 5.9, indicating prediabetes. Plan The patient will continue on letrozole for breast cancer management and follow up with hematology oncology and her surgeon. A repeat mammogram is scheduled for September to monitor for any recurrence. Hypertension management includes continuation of hydrochlorothiazide and lisinopril. Asthma management involves the use of albuterol as needed, and a new prescription for Breo has been sent. For the chronic low back pain, an x-ray of the lumbar spine will be conducted, and muscle relaxants have been prescribed to alleviate symptoms. Physical therapy is recommended, but the patient is considering alternatives due to cost. Hypercholesterolemia is managed with simvastatin, aiming for an LDL goal of less than 130 mg/dL and triglycerides less than 150 mg/dL. The patient is advised to resume vitamin supplementation to address the deficiency. For the fungal infection of the toenail, topical treatment continues, with consideration for systemic therapy if necessary. The patient is encouraged to manage migraines with rest and medication as needed, and to monitor any changes in symptoms. Prediabetes management includes lifestyle modifications to prevent progression to diabetes. Patient was informed and verbally consented to the use of an ambient scribe for clinic note documentation during this visit. Discussion Notes I discussed with the patient the importance of continuing letrozole for breast cancer management and the need for regular follow-ups with her oncology team. We reviewed her hypertension and asthma management plans, emphasizing adherence to her current medications and the addition of Breo for asthma control. I explained the plan for addressing her chronic low back pain, including the use of muscle relaxants and the option of physical therapy, while considering her financial constraints. We also discussed the management of her hypercholesterolemia and the need for lifestyle modifications to address her prediabetes. I advised her on the continuation of topical treatment for her toenail fungal infection and the potential need for systemic therapy. Patient Instructions - Continue taking letrozole as prescribed and follow up with your oncology team. - Take hydrochlorothiazide and lisinopril daily for blood pressure control. - Use albuterol as needed for asthma and start using Breo as prescribed. - Schedule an x-ray for your lower back and consider physical therapy if affordable. - Continue simvastatin for cholesterol management and aim for LDL less than 130 mg/dL. - Resume vitamin B12 supplementation as advised. - Apply topical treatment for toenail fungus and monitor for any changes. - Rest and take medication as needed for migraines, and monitor symptoms. - Implement lifestyle changes to manage prediabetes and prevent progression. Orders: Orders XR lumbar spine 2-3V Today M54.50 - Low back pain, unspecified Medications: New fluticasone furoate-vilanterol 100-25 mcg/dose (Breo Ellipta) 1 inh inhalation DAILY 60 ea 4RF J45.20 - Mild intermittent asthma, uncomplicated cyclobenzaprine 5 mg PO TID PRN 30 tabs 0RF muscle spasm M43.6 - Torticollis fluticasone furoate-vilanterol 100-25 mcg/dose (Breo Ellipta) 1 inh inhalation DAILY 60 ea 4RF J45.20 - Mild intermittent asthma, uncomplicated
== END 2025-04-25 15:46 | disposition home or self-care (01) ==
PROVIDERS: PCP Internal Medicine; Visit Provider Internal Medicine
DX: Z00.00 Encounter for general adult medical examination without abnormal findings (principal); C50.919 Malignant neoplasm of unspecified site of unspecified female breast; E66.9 Obesity, unspecified; Z68.33 Body mass index [BMI] 33.0-33.9, adult; I10 Essential (primary) hypertension; J45.20 Mild intermittent asthma, uncomplicated; K21.9 Gastro-esophageal reflux disease without esophagitis; E78.00 Pure hypercholesterolemia, unspecified; R73.02 Impaired glucose tolerance (oral); F41.1 Generalized anxiety disorder; M54.50 Low back pain, unspecified; M43.6 Torticollis

== ENCOUNTER → 2025-04-25 14:40 | Outpatient (BNVA) | payer BC, SELFPAY | PROVIDERS: PCP Internal Medicine; Visit Provider Internal Medicine | DX: Z00.00 Encounter for general adult medical examination without abnormal findings (principal); I10 Essential (primary) hypertension; E78.00 Pure hypercholesterolemia, unspecified; M54.2 Cervicalgia; M54.50 Low back pain, unspecified; J45.20 Mild intermittent asthma, uncomplicated; K21.9 Gastro-esophageal reflux disease without esophagitis; E66.9 Obesity, unspecified; R73.02 Impaired glucose tolerance (oral); F41.1 Generalized anxiety disorder; C50.919 Malignant neoplasm of unspecified site of unspecified female breast; Z85.3 Personal history of malignant neoplasm of breast; Z91.81 History of falling | CPT/HCPCS: 96127 ==

== ENCOUNTER 2025-09-06 14:03 | Outpatient (AMB) | payer BC, SELFPAY ==
--- OUTSIDE RECORDS SUMMARY | 2012-07-28 | XMS_ITS | Encounter Summary ---
Author Organization [facility] Address [address] [facility] [address] [place] [address] Phone Care Team Providers Care [place] Ordinary Name Role Phone Unavailable Primary Care Provider Unavailabl e Encounter Details Date Type Department Care Team (Late st Contact Info) Description 07/28/2012 Hospital Encounter [facility],Outside Imaging [address] [place] [address] Unknown, Unknown, Social History Tobacco Use Types [...] It is not the complete legal health record.[facility]
--- OUTSIDE RECORDS SUMMARY | 2012-09-18 01:00 | XMS_ITS | Encounter Summary ---
Author Organization [facility] Address [address] [facility] [address] [place] [address] Phone Care Team Providers Care Transformer Coil Winder Name Role Phone Unavailable Primary Care Provider Unavailabl e Encounter Details Date Type Department Care Team (Late st Contact Info) Description 09/18/2012 Hospital Encounter [facility],Outside Imaging [address] [place] [address] Unknown, Unknown, Social History Tobacco Use Types [...] It is not the complete legal health record.[facility]
--- OUTSIDE RECORDS SUMMARY | 2012-09-23 01:00 | XMS_ITS | Encounter Summary ---
Author Organization [facility] Address [address] [facility] [address] [place] [address] Phone Care Team Providers Care Golf Club Head Former Name Role Phone Unavailable Primary Care Provider Unavailabl e Encounter Details Date Type Department Care Team (Late st Contact Info) Description 09/23/2012 Hospital Encounter [facility],Outside Imaging [address] [place] [address] Unknown, Unknown, Social History Tobacco Use Types [...] It is not the complete legal health record.[facility]
--- OUTSIDE RECORDS SUMMARY | 2012-09-23 01:05 | XMS_ITS | Encounter Summary ---
Author Organization [facility] Address [address] [place] [address] Phone Care Team Providers Care Veneer Joiner Name Role Phone Unavailable Primary Care Provider Unavailabl e Encounter Details Date Type Department Care Team (Late st Contact Info) Description 09/23/2012 12:05 AM EST Hospital Encounter [facility],Outside Imaging [address] [place] [address] Unknown, Unknown, Social History Tobacco Use Types [...] not for interpretation. us Unknown Unknown MD BARAH[place]A OUTSIDE IMAGING W/OUT INT ERPRETATION Final Result documented in this encounter Visit Diagnoses Not on filedocumented in this encounter Additional Source Comments The information contained in this document represents components of the legal health record. It is not the complete legal health record.[facility]
--- OUTSIDE RECORDS SUMMARY | 2012-10-19 01:00 | XMS_ITS | Encounter Summary ---
Author Organization [facility] Address [address] [facility] [address] [place] [address] Phone Care Team Providers Care Truck Mechanic Name Role Phone Unavailable Primary Care Provider Unavailabl e Encounter Details Date Type Department Care Team (Late st Contact Info) Description 10/19/2012 Hospital Encounter [facility],Outside Imaging [address] [place] [address] Unknown, Unknown, Social History Tobacco Use Types [...] It is not the complete legal health record.[facility]
--- OUTSIDE RECORDS SUMMARY | 2012-10-28 01:00 | XMS_ITS | Encounter Summary ---
Author Organization [facility] Address [address] [place] [address] Phone Care Team Providers Care Shoemaking Cutter Name Role Phone Unavailable Primary Care Provider Unavailabl e Encounter Details Date Type Department Care Team (Late st Contact Info) Description 10/28/2012 Hospital Encounter [facility],Outside Imaging [address] [place] [address] Unknown, Unknown, Social History Tobacco Use Types [...] It is not the complete legal health record.[facility]
--- OUTSIDE RECORDS SUMMARY | 2013-07-29 | XMS_ITS | Encounter Summary ---
Author Organization [facility] Address [address] [facility] [address] [place] [address] Phone Care Team Providers Care Thermodynamicist Name Role Phone Unavailable Primary Care Provider Unavailabl e Encounter Details Date Type Department Care Team (Late st Contact Info) Description 07/29/2013 Hospital Encounter [facility],Outside Imaging [address] [place] [address] Unknown, Unknown, Social History Tobacco Use Types [...] is not the complete legal health record.[facility]
--- NOTE | 2025-09-06 14:10 | MHC.OFFVIS ---
Vital Signs 09/06/25 14:19 Height 5 ft Weight 172 lb 6.424 oz BMI 33.7 BP 120/72 Blood Pressure Location Lt brachial Position Sitting Intake Visit Reasons: 6 month breast exam Intake Note: Patient is seen in office for 6 month follow up visit, breast exam. 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 Present Accompanied by: Self / Same As Patient Allergies latex (LATEX) Allergy (Intermediate, Verified 09/06/25 14:11) RASH ENVIRONMENTAL Allergy (Mild, Uncoded 09/06/25 14:11) HAYFEVER Medication List - Last Reconciled 09/06/25 by David Rivas MD albuterol sulfate 90 mcg/actuation 2 puffs inhalation Q6H PRN bupropion HCl XL 150 mg PO QAM cholecalciferol (vitamin D3) 25 mcg PO DAILY clotrimazole 1% 1 appl topical BID 4 weeks cyclobenzaprine 5 mg PO TID PRN famotidine (Pepcid) 20 mg PO BEDTIME fluoxetine 40 mg PO DAILY fluticasone furoate-vilanterol 100-25 mcg/dose (Breo Ellipta) 1 inh inhalation DAILY hydrochlorothiazide 25 mg PO DAILY hydroxyzine pamoate 1 - 2 caps PO BEDTIME PRN letrozole 2.5 mg PO DAILY lisinopril 5 mg PO DAILY mirtazapine 15 mg PO BEDTIME montelukast 10 mg PO DAILY ondansetron 4 mg PO Q6H prazosin 1 mg PO BEDTIME simvastatin 5 mg PO BEDTIME tramadol 50 mg PO DAILY PRN HPI Comments Details: 60-year-old female patient diagnosed with an invasive lobular carcinoma and lobular carcinoma in-situ of the left breast and a prior history of ductal carcinoma in situ right breast returning for follow-up breast examination.? She is a former patient of Dr. Will found on right breast stereotactic guided core biopsy to have atypical ductal hyperplasia.? She subsequently underwent a right breast lumpectomy with needle localization on 10/19/2012 which revealed multifocal ductal carcinoma in situ with clear margins.? Breast MRI was done for further assessment of the multifocality but was somewhat difficult to interpret.? She underwent radiation therapy which was completed in 02/08/2013.? She did develop some lymphedema in the breast which intermittently is causing some discomfort.? She denied lymphedema in the arm.? Her family history is significant for 1 full sister and 1/2 sister with breast cancer.? BRCA testing was performed and negative.? A mammogram on 11/17/2020 revealed no significant changes from the prior study (BI-RADS 2:? Benign).? Her lifetime risk of breast cancer was determined to be 31%, well above the 20% threshold placing her at high risk for recurrent breast cancer.? On 09/13/2021 she underwent MRI of the breast. This revealed a non mass enhancement measuring 0.7 cm in the left breast at the 12 o'clock position. This was felt to be suspicious and a MR guided biopsy was performed on 10/02/2021. Pathology revealed sclerosing papilloma, no atypia or carcinoma was seen. The papilloma was present in 1 tissue fragment in each block of tissue measuring up to 4 mm in greatest diameter. 05/08/2022: Left breast lumpectomy with needle localization. Path revealed residual sclerosing papilloma; margins uninvolved; negative for atypia or malignancy. Background breast parenchyma with prior biopsy site changes, atypical lobular hyperplasia (ALH), radial sclerosing lesion, sclerosing adenosis and papillary cystic apocrine metaplasia. Breast MRI performed on 09/02/2024 revealed a left breast density in the 03:00 o'clock location measuring approximately 1.5 cm in diameter felt to be suspicious for malignancy. Evaluation with ultrasound on 09/14/2024 confirmed the density which was felt to be suspicious therefore a biopsy was performed under ultrasound guidance on 09/20/2024. Subsequent pathology revealed invasive lobular carcinoma with atypical lobular hyperplasia and lobular carcinoma in-situ. She underwent a left breast lumpectomy with sentinel node biopsy as a short-stay surgery on 10/06/2024. Pathology revealed invasive lobular carcinoma, grade 2, 17 mm with lobular carcinoma in-situ. Margins were felt to be negative. One of 2 sentinel lymph nodes were positive for metastatic carcinoma (pT1c pN1a). She was evaluated by Dr. Dennis and the Oncotype DX found to be 7. She completed radiation therapy and developed an extensive burn on the left breast skin which is gradually resolving. She continues to note swelling and pain especially in the medial left breast. She continues on letrozole and is tolerating this well. Her next mammogram is scheduled for 09/13/2025. [facility] Medical History Knee pain, right At high risk for breast cancer Tinnitus Hypersomnia Vision problem Anemia Restless legs Snoring COVID-19 vaccine series completed Abnormal magnetic resonance imaging of left breast Chest pain Dysphagia Annual physical exam Otitis externa Blood sugar increased DCIS (ductal carcinoma in situ) of breast Hypersomnia Compression fracture of L2 Insomnia Obesity (BMI 30-39.9) Hypercholesterolemia Lumbar degenerative disc disease Carpal tunnel syndrome Migraine Pulmonary nodule Allergic rhinitis Irritable bowel syndrome GERD (gastroesophageal reflux disease) Asthma Hypertension Breast cancer Allergic sinusitis Cervical radiculopathy Surgical History History of lumpectomy of left breast (10/06/24) History of lumpectomy of left breast (05/08/22) H/O colonoscopy H/O breast biopsy Status post total abdominal hysterectomy History of lumpectomy of right breast History of cholecystectomy Family History Father Diabetes Hypertension Myocardial infarction Mother Throat cancer Diabetes Hypertension Breast lump Sister Breast cancer Brother Myocardial infarction CVD (cardiovascular disease) Substance abuse Sister Breast cancer Son Diabetes Social History Household Members: Spouse Housing: House Are you a primary vehicle care specialist to a significant other at home: No Do you presently have visiting nurse or other home services: No Alcohol intake: current Alcohol intake frequency: does not drink Alcohol type: beer and wine Patient Tobacco Use Status: Never used Tobacco Tobacco use type: Cigarette e-Cigarette/Vaping Use: Never Used Second Hand Smoke Exposure: No service: No Current occupational status: employed Current occupational exposures/hazards: No Cognitive needs: No Hearing needs: No Vision needs: Yes Review of Systems Const All systems reviewed & are unremarkable except as noted in HPI and below Physical Exam Vital Signs: Last Vital Signs BP 120/72 09/06/25 14:19 BMI result Body Mass Index 33.7 Const General: healthy appearing and no acute distress Nutritional Appearance: well nourished Orientation/consciousness: patient oriented x3 Limitations: no limitations Chest Other: Left breast: Continued edema involving the entire left breast most significantly seen in the lower inner quadrant. Incision in the upper outer quadrant is clean and intact with some scar retraction. No erythema is noted. No palpable seroma or hematoma. No nipple discharge, palpable mass, or enlarged lymph nodes. Right breast: No skin change, nipple discharge, palpable mass, or enlarged lymph nodes. Well-healed incision in the upper outer quadrant with palpable tenderness in the lower outer quadrant. There is tenderness along the medial portion of the right breast especially in the lower inner quadrant. Resp Effort & Inspection: normal respiratory effort, no audible wheezes, no cough and no respiratory distress GI Inspection: Yes normal to inspection Skin General skin exam: no rashes or lesions noted Neuro Other: Mobility Assessment: 1. 3 meter assessment time (seconds) 6 2. Gait observations: Normal balance and gait General: patient oriented x3 Extrem General: No edema Assessment & Plan Assessment & Plan (1) Invasive lobular carcinoma of breast in female: Comment: September 2024 left breast lumpectomy Code(s): C50.919 - Malignant neoplasm of unspecified site of unspecified female breast Category: Medical Plan 60-year-old female patient presenting with an abnormal breast MRI confirmed on a left breast ultrasound to be a density in the 3 o'clock position. Subsequent ultrasound-guided core biopsy confirmed a left breast invasive lobular carcinoma with lobular carcinoma in-situ and atypical lobular hyperplasia. She is now status post left breast lumpectomy with sentinel node biopsy. Pathology confirmed invasive lobular carcinoma with LCIS, 1 of 2 sentinel lymph nodes positive for metastatic disease, ER/AZ positive, HER2 Pipe negative. Oncotype DX 7 therefore no benefit for chemotherapy. She completed radiation therapy which was complicated by severe skin car. She was started on letrozole by Dr. Dennis. Examination today revealed postoperative and postradiation change to the left breast but no new suspicious findings. The right breast is normal as well. She is scheduled for her annual mammogram on 09/13/2025. I recommended a follow-up examination in approximately 6 months. She will continue to follow up with Dr. Dennis as well. Coding Level of Care Code Est Pt Level 3 (12007) Complex EM visit Add On G2211 Diagnoses Invasive lobular carcinoma of breast in female C50.919
[2025-09-06 14:19] VITALS: BP 120/72; BMI 33.7
--- OUTSIDE RECORDS SUMMARY | 2025-09-06 18:30 | XMS_ITS | Clinical Summary ---
Author Organization [facility] Address [address] [place] [address] Phone Care Team Providers Care Graphics Production Specialist Name Role Phone Aniceto Levy MD Primary Care Provider [phone] Allergies Active Allergy Reactions Criticality Noted Date Comments Adhesive Tape-Silicones Rash Low 11/12/2024 Latex Rash Low 11/12/2024 Medications buPROPion (WELLBUTRIN XL) 150 MG ER 24 hr tablet Take 150 mg by mouth every morning. 4 Active famotidine (PEPCID) 20 MG tablet 5 Active FLUoxetine (PROZAC) 40 MG capsule 5 Active lisinopril (PRINIVIL,ZESTRIL ) 5 MG tablet Take 1 tablet by mouth every morning. 4 Active montelukast (SINGULAIR) 10 mg tablet 5 Active prazosin (MINIPRESS) 1 MG capsule Take 1 mg by mouth nightly at bedtime. 4 Active simvastatin (ZOCOR) 5 MG tablet 5 Active albuterol 90 mcg/actuation inhaler Inhale 2 puffs into the lungs every 6 (six) hours as needed for wheezing. Dose? Active mirtazapine (REMERON) 30 MG tablet Take 30 mg by mouth nightly at bedtime. Dose? Active cholecalciferol (VITAMIN D3) 50,000 unit tablet Take 1,250 mcg by mouth every 7 days. Dose? Active hydroCHLOROthiazi de 25 MG tablet Take 25 mg by mouth daily. Dose? Active traMADoL (ULTRAM) 50 mg tablet Take 50 mg by mouth every 6 (six) hours as needed for pain (specific location in comments). Dose? Active betamethasone dipropionate 0.05 % cream Apply topically 2 (two) times a day. Active letrozole (FEMARA) 2.5 mg tablet Take 1 tablet by mouth every morning. Active silver sulfADIAZINE (SILVADENE) 1 % cream Apply topically 2 (two) times a day. 50 g 5 Active silver sulfADIAZINE (SILVADENE) 1 % cream Apply topically 2 (two) times a day. 400 g 5 Active Active Problems Problem Noted Date Diagnosed Date Malignant neoplasm of upper- outer quadrant of left breast in female, estrogen receptor positive 12/29/2024 Family History Medical History Relation Comments Breast cancer Half-Sister Cancer Mother Larynx Breast cancer Sister Relation Status Comments Half-Sister Alive Mother Sister Social History Tobacco Use Types Packs/Day Years Used Date Smoking Tobacco: Never Smokeless Tobacco: Never Tobacco Cessation:Counseling Given: Not Answered Alcohol Use Standard Drinks/Week Comments Yes 0 [...] on file Sexual Orientation Not on file Last Filed Vital Signs Vital Sign Reading Time Taken Comments Blood Pressure 127/82 01/31/2025 11:26 AM EDT Pulse 74 01/31/2025 11:26 AM EDT Temperature 38.7 C (101.7 F) 01/31/2025 11:26 AM EDT Respiratory Rate 16 01/13/2025 11:21 AM EST Oxygen Saturation 95% 01/31/2025 11:26 AM EDT Inhaled Oxygen Concentration - - Weight 76.9 kg (169 lb 8 oz) 01/20/2025 10:47 AM EDT Height 152.4 cm (5') 11/12/2024 8:40 AM EST Body Mass Index 33.1 11/12/2024 8:40 AM EST Plan of Treatment Health Maintenance Due Date Last Done Comments Adult Td,Tdap Booster 1966 CREATININE LEVEL 1966 LIPID PANEL 1966 POTASSIUM LEVEL 1966 DEPRESSION SCREENING 1978 HEPATITIS C SCREENING 1984 HIV ONE-TIME SCREENING (18-65 YEARS) 1984 PNEUMOCOCCAL VACCINES (50+ years) (1 of 2 - PCV) 1985 ZOSTER VACCINES (1 of 2) 1985 PAP SMEAR 1987 SCREENING FOR DIABETES 2001 COLOGUARD 2011 COLONOSCOPY 2011 COLORECTAL CANCER SCREENING 2011 FIT TEST 2011 FOBT 2011 SIGMOIDOSCOPY 2011 VIRTUAL COLONOSCOPY 2011 INFLUENZA VACCINE (#1) 2025 COVID-19 VACCINE ( - 2024- season) 2025 MAMMOGRAM 10/04/2026 10/04/2024, 09/10, 09/02/2024, Additional history exists RSV VACCINE (1 - 1-dose 75+ series) 2041 SMOKING STATUS SCREENING (Once After 26 Yrs) Completed 11/12/2024 HEPATITIS A VACCINES Aged Out No long er eligible based on patient's age to complete this topic HIB VACCINES Aged Out No longer eligi ble based on patient's age to complete this topic MENINGOCOCCAL VACCINES (ACWY) Aged Out No longer eligible based on patient's age to complete this topic MENINGOCOCCAL VACCINES (B) Aged Out N o longer eligible based on patient's age to complete this topic Medical Devices Not on file Procedures Procedure Name Priority Date/Time Associated Diagnosis Comments BI MAMMOGRAM OUTSIDE (NO INTERPRETATION) Routine 10/04/2024 12:00 AM EST from Last 3 Months or Most Recently Relevant to Health Maintenance Results * Mammogram Outside (No Interpretation) (10/04/2024 12:00 AM EST) Narrative SYSTEMGENERATED, DOCUMENTATION - 11/09/2024 7:18 AM EST This study is for PACS storage only and not for interpretation. us Unknown Unknown MD [facility] OUTSIDE IMAGING W/OUT INT ERPRETATION Final Result from Last 3 Months or Most Recently Relevant to Health Maintenance Insurance [facility] [place] Care Teams Graphics Production Specialist Relationship Specialty Start Date End Date Aniceto Levy MD [address] [place] [address] PCP - General Internal Medicine 11/05/24 Additional Source Comments The information contained in this document represents components of the legal health record. It is not the complete legal health record.[facility]
== END 2025-09-06 14:31 | disposition home or self-care (01) ==
LOC: HO.HGS 14:04
PROVIDERS: PCP Internal Medicine; Visit Provider Surgery
DX: C50.919 Malignant neoplasm of unspecified site of unspecified female breast (principal)
CPT/HCPCS: 99213

== ENCOUNTER → 2025-09-06 14:03 | Outpatient (BNVA) | payer BC, SELFPAY | PROVIDERS: PCP Internal Medicine; Visit Provider Surgery | DX: Z00.00 Encounter for general adult medical examination without abnormal findings (principal); Z23 Encounter for immunization; I10 Essential (primary) hypertension; E78.00 Pure hypercholesterolemia, unspecified; R73.02 Impaired glucose tolerance (oral); E66.9 Obesity, unspecified; Z68.33 Body mass index [BMI] 33.0-33.9, adult; K21.9 Gastro-esophageal reflux disease without esophagitis; C50.912 Malignant neoplasm of unspecified site of left female breast; Z17.0 Estrogen receptor positive status [ER+]; Z79.811 Long term (current) use of aromatase inhibitors; J45.20 Mild intermittent asthma, uncomplicated; F41.1 Generalized anxiety disorder; S32.020D Wedge compression fracture of second lumbar vertebra, subsequent encounter for fracture with routine healing; R51.9 Headache, unspecified; R13.10 Dysphagia, unspecified; Z79.899 Other long term (current) drug therapy; Z13.31 Encounter for screening for depression | CPT/HCPCS: 90471; 90472; 90656; 90714; 96127 ==

== ENCOUNTER 2025-09-06 14:37 | Outpatient (AMB) | payer BC, SELFPAY ==
[2025-09-06 14:46] VITALS: BP 144/88; PULSE 82; TEMP 36.4; O2SAT 95; BMI 33.4
--- NOTE | 2025-09-06 14:46 | A.OFFPC_ITS ---
Vital Signs 09/06/25 14:46 Height 5 ft Weight 171 lb 4 oz BMI 33.4 BP 144/88 H Blood Pressure Location Lt brachial Position Sitting Pulse 82 Pulse Source Pulse Oximeter Temp 97.5 F Temp Source Temporal Artery Scan Pulse Oximetry (%) 95 Oxygen Delivery Method Room Air Intake Visit Reasons: Annual Exam - see comments Allergies latex (LATEX) Allergy (Intermediate, Verified 09/06/25 14:48) RASH ENVIRONMENTAL Allergy (Mild, Uncoded 09/06/25 14:48) HAYFEVER Medication List - Last Reconciled 09/06/25 by Aniceto Levy MD albuterol sulfate 90 mcg/actuation 2 puffs inhalation Q6H PRN bupropion HCl XL 150 mg PO QAM cholecalciferol (vitamin D3) 25 mcg PO DAILY clotrimazole 1% 1 appl topical BID 4 weeks cyclobenzaprine 5 mg PO TID PRN famotidine (Pepcid) 20 mg PO BEDTIME fluoxetine 40 mg PO DAILY fluticasone furoate-vilanterol 100-25 mcg/dose (Breo Ellipta) 1 inh inhalation DAILY hydrochlorothiazide 25 mg PO DAILY hydroxyzine pamoate 1 - 2 caps PO BEDTIME PRN letrozole 2.5 mg PO DAILY lisinopril 5 mg PO DAILY mirtazapine 15 mg PO BEDTIME montelukast 10 mg PO DAILY ondansetron 4 mg PO Q6H prazosin 1 mg PO BEDTIME sennosides-docusate sodium 8.6-50 mg (Senna Plus) 2 tab-caps (2 x 8.6-50 mg) PO BID simvastatin 5 mg PO BEDTIME tramadol 50 mg PO DAILY PRN Tobacco use date assessed: 09/06/25 Dental Screening Dental Screen Date: 09/06/25 Did you have a dental visit in the last 12 months?: Yes Did you have a dental problem in the last 6 months where you did not have access to dental care?: No Was dental information given to patient?: Patient has dentist [facility] Medical History (Updated 09/06/25 @ 15:36 by Aniceto Levy MD) Dysphagia Knee pain, right At high risk for breast cancer Tinnitus Hypersomnia Vision problem Anemia Restless legs Snoring COVID-19 vaccine series completed Abnormal magnetic resonance imaging of left breast Chest pain Annual physical exam Otitis externa Blood sugar increased DCIS (ductal carcinoma in situ) of breast Hypersomnia Compression fracture of L2 Insomnia Obesity (BMI 30-39.9) Hypercholesterolemia Lumbar degenerative disc disease Carpal tunnel syndrome Migraine Pulmonary nodule Allergic rhinitis Irritable bowel syndrome GERD (gastroesophageal reflux disease) Asthma Hypertension Breast cancer Allergic sinusitis Cervical radiculopathy Surgical History History of lumpectomy of left breast (10/06/24) History of lumpectomy of left breast (05/08/22) H/O colonoscopy H/O breast biopsy Status post total abdominal hysterectomy History of lumpectomy of right breast History of cholecystectomy Family History Father Diabetes Hypertension Myocardial infarction Mother Throat cancer Diabetes Hypertension Breast lump Sister Breast cancer Brother Myocardial infarction CVD (cardiovascular disease) Substance abuse Sister Breast cancer Son Diabetes Social History (Updated 09/06/25 @ 15:34 by Aniceto Levy MD) Household Members: Spouse Housing: House Are you a primary patient care specialist to a significant other at home: No Do you presently have visiting nurse or other home services: No Alcohol intake: current Alcohol intake frequency: does not drink Alcohol type: beer and wine Comment: once a week 1 glass Patient Tobacco Use Status: Never used Tobacco Tobacco use type: Cigarette e-Cigarette/Vaping Use: Never Used Second Hand Smoke Exposure: No service: No Current occupational status: employed Current occupational exposures/hazards: No Cognitive needs: No Hearing needs: No Vision needs: Yes Questionnaire PHQ-9 Over the last 2 weeks, how often have you been bothered by any of the following problems? 1. Little interest or pleasure in doing things: more than half the days 2. Feeling down, depressed, or hopeless: more than half the days 3. Trouble falling or staying asleep, or sleeping too much: more than half the days 4. Feeling tired or having little energy: more than half the days 5. Poor appetite or overeating: not at all 6. Feeling bad about yourself - or that you are a failure or have let yourself or your family down: not at all 7. Trouble concentrating on things, such as reading the newspaper or watching television: not at all 8. Moving or speaking so slowly that other people could have noticed. Or the opposite - being so fidgety or restless that you have been moving around a lot more than usual: not at all 9. Thoughts that you would be better off or of hurting yourself in some way: not at all Total score: 8 Depression Screening Interpretation: Positive Depression Screening Done: Yes Source: Developed by Drs. Chet Park, Ely Monzon, Kali Gonzalez and colleagues, with an educational jocelyne from [email or web address]. Thrive Questionnaire Date Thrive assessed: 04/25/25 I am a: Patient What is your living situation today?: I have a steady place to live Within the past 12 months, did the food you bought not last and you didn't have the money to get more?: Never true Within the past 12 months, did you worry whether your food would run out before you got money to buy more?: Never true Do you have trouble paying for medicines?: No Do you have trouble getting transportation to medical appointments?: No Do you have trouble paying your heating and electricity bill?: No Do you have trouble taking care of your child, family member or friend?: No Do you have trouble with day-to-day activities such as bathing, preparing meals, shopping, managing finances, etc.?: No Are you currently unemployed and looking for a job?: No Are you interested in more education?: No Please select the resources that you would like help with: None Currently or been in a relationship where the following occur: No concerns reported THRIVE Score: 0 AUDIT C Alcohol Use Questionnaire (AUDIT-C) 1. How often do you have a drink containing alcohol?: Monthly or less 2. How many drinks containing alcohol do you have on a typical day when you are drinking?: 1 or 2 3. How often do you have six or more drinks on one occasion?: Never Total Score: 1 ADELINE-7 AMB Questionnaire ADELINE-7 Date ADELINE - 7 assessed: 04/25/25 Feeling nervous, anxious, or on edge: 1 = Several days Not being able to stop or control worryin = Not at all Worrying too much about different things: 1 = Several days Trouble relaxin = Not at all Being so restless that it is hard to sit still: 0 = Not at all Becoming easily annoyed or irritable: 0 = Not at all Feeling afraid as if something awful might happen: 0 = Not at all Total ADELINE-7 score (0-4 normal; 5-9 mild; 10-14 moderate; 15-21 severe): 2 Source: Developed by Drs. Chet Park, Ely Monzon, Kali Gonzalez and colleagues, with an educational jocelyne from [email or web address]. Review of Systems Const Denies poor appetite and Denies weakness Eyes Denies no additional complaints ENT Reports Normal hearing present, Denies dizziness, Denies nasal congestion, Denies tinnitus and Denies sore throat Card Denies chest pain, Denies syncope, Denies rapid heart rate and Denies dyspnea Resp Denies cough and Denies dyspnea GI Denies change in stool character, Reports constipation, Denies diarrhea, Denies nausea and Denies vomiting Denies urinary frequency, Denies difficulty voiding and Denies dysuria Neuro Reports Normal hearing present, Denies confusion, Denies dizziness, Denies syncope and Denies weakness Psych Denies confusion Physical exam (Primary Care) Vital Signs: Last Vital Signs Temp 97.5 F 09/06/25 14:46 Pulse 82 09/06/25 14:46 BP 144/88 H 09/06/25 14:46 Pulse Ox 95 09/06/25 14:46 Oxygen Delivery Method Room Air 09/06/25 14:46 BMI result Body Mass Index 33.4 Tobacco/Smoking Status: Tobacco use Status Tobacco use date assessed 09/06/25 09/06/25 14:50 Patient Tobacco Use Status Never used Tobacco 09/06/25 15:34 Tobacco use type Cigarette 09/06/25 15:34 e-Cigarette/Vaping Use Never Used 09/06/25 15:34 PHQ-9: PHQ-9 Score PHQ-9: Total score 8 09/06/25 15:25 Depression Screening Interpretation: Positive Thrive Assessment: Date of Thrive Assessment Date Thrive assessed 04/25/25 09/06/25 14:50 Currently or been in a relationship where the following occur: No concerns reported Const General: alert and awake; No confusion Orientation/consciousness: No confusion HENMT Head: Yes normocephalic Ears: external ears normal and TM's normal bilaterally Face and sinus: Yes normal facial exam Mouth: moist mucous membranes Throat: Yes tonsils normal Eyes Conjunctivae: conjunctivae normal Pupils: Equal, round and reactive pupils present and Pupil accommodation reflex normal Direct Ophthalmoscopy: normal light reflex Neck Neck: No lymphadenopathy Thyroid: Thyroid normal Chest Chest palpation & inspection: normal inspection of the chest Resp Effort & Inspection: normal respiratory effort and no audible wheezes Auscultation: clear to auscultation bilaterally, no crackles, no wheezes and lung sounds not diminished Cardio Rate: regular rate Rhythm: regular rhythm Peripheral pulses: radial pulses present and dorsalis pedis present GI Palpation (GI): no masses Auscultation: normal bowel sounds and normoactive bowel sounds Rectal Exam - Female: deferred Skin General skin exam: no rashes or lesions noted Rashes: no rashes Neuro General: deep tendon reflexes 2+ bilaterally and No confusion Cranial nerves: Yes Equal, round and reactive pupils present, Yes Midline tongue present, Yes Normal hearing present and Yes Ability to bilaterally elevate shoulders present Cognition (Neuro): normal cognition Gait exam (Neuro): Normal gait present Motor exam (neuro): 5/5 motor strength present throughout Deep tendon reflexes (DTR's): Right brachioradialis reflex intensity grade: 2+, Left brachioradialis reflex intensity grade: 2+, Right patellar reflex intensity grade: 2+ and Left patellar reflex intensity grade: 2+ Extrem General: No edema Office Procedures Flu Questionnaire Does the patient have a severe egg allergy?: No Does the patient have severe life threatening allergies?: No Does the patient have a fever or illness today?: No Has the patient ever had Guillain-Minden Syndrome?: No Has the patient ever had any past reaction to a flu shot?: No Immunizations Fluarix [id number] (PF) 45 mcg (15 mcg x 3)/0.5 mL IM syringe Performing Provider: Aniceto Levy MD Performing [facility] [place] [facility] Administered by: Sherri Auugst CMA on 09/06/25 14:56 Dose Route Admin Location Dispensed Lot Number Expiration Date NDC Lard Maker 0.5 mL IM Right Deltoid 0.5 mL [id number] 05/09/26 [id number] [employer] VIS Given Date VIS Provided VIS Publication Date 09/06/25 Single Vaccine 24 Eligibility Eligibility Date Funding Source Not [facility] Eligible 09/06/25 Private Tenivac (PF) 5 Lf unit-2 Lf unit/0.5 mL intramuscular syringe Performing Provider: Aniceto Levy MD Performing Location: [facility] [place] [facility] Administered by: Sherri August CMA on 09/06/25 15:55 Dose Route Admin Location Dispensed Lot Number Expiration Date NDC Lard Maker 0.5 mL IM Left Deltoid 0.5 mL [id number] 02/08/27 [id number] [employer] Total Dispensed Waste 0.5 mL 0 % VIS Given Date VIS Provided VIS Publication Date 09/06/25 Single Vaccine 21 Eligibility Eligibility Date Funding Source Not [facility] Eligible 09/06/25 Private Coding Level of Care Code Est Pt Prev Care 40-64y(12405) Diagnoses Annual physical exam Z00.00 Essential hypertension I10 Hypertension type: essential hypertension Hypercholesterolemia E78.00 Impaired glucose tolerance R73.02 Obesity (BMI 30-39.9) E66.9 Gastroesophageal reflux disease without esophagitis K21.9 Esophagitis presence: without esophagitis Invasive lobular carcinoma of breast in female C50.919 Mild intermittent asthma without complication J45.20 Asthma severity: mild Asthma persistence: intermittent Asthma complication type: uncomplicated Generalized anxiety disorder F41.1 Compression fracture of L2 S32.020A Headache R51.9 Dysphagia R13.10 Assessment & Plan Assessment & Plan (1) Annual physical exam: Code(s): Z00.00 - Encounter for general adult medical examination without abnormal findings Category: Medical Plan: Patient is advised to eat healthy, keep well hydrated, keep active and have adequate sleep. (2) Hypertension: Code(s): I10 - Essential (primary) hypertension Category: Medical Qualifiers: Hypertension type: essential hypertension Qualified Code(s): I10 - Essential (primary) hypertension Plan: Continue with blood pressure medication. Decrease salt intake and exercise patient is on hydrochlorothiazide 25 mg once a day lisinopril 5 mg once a day (3) Hypercholesterolemia: Code(s): E78.00 - Pure hypercholesterolemia, unspecified Category: Medical Plan: Avoid fried foods, chicken skin, eggs, butter margarine, pastries and meat. Be it pork or beef they have a lot of cholesterol on simvastatin 5 mg once a day with last blood work in February 2025 LDL goal of less than 130 and triglyceride of less than 150 (4) Impaired glucose tolerance: Code(s): R73.02 - Impaired glucose tolerance (oral) Category: Medical Plan: Decrease the amount of carbohydrate intake, pasta, bread, rice and potatoes are all sugar and that is aside from all the sweet stuff, remember that fruits are good but they are Sweet also. (5) Obesity (BMI 30-39.9): Code(s): E66.9 - Obesity, unspecified Category: Medical Plan: Diet and exercise (6) GERD (gastroesophageal reflux disease): Code(s): K21.9 - Gastro-esophageal reflux disease without esophagitis Category: Medical Qualifiers: Esophagitis presence: without esophagitis Qualified Code(s): K21.9 - Gastro-esophageal reflux disease without esophagitis Plan: Avoid the foods that causes that usually spicy foods, tomato products, juices, coffee, soda and foods that your sensitive to. After eating do not lie down, allow 3-4 hours before in lie down. And keep the head of bed above 30 degrees to avoid the acid from going up. (7) Invasive lobular carcinoma of breast in female: Comment: September 2024 left breast lumpectomy Code(s): C50.919 - Malignant neoplasm of unspecified site of unspecified female breast Category: Medical Plan: Continue to follow-up with Hematology-Oncology as well as the surgeon will have letrozole for 5 years (8) Asthma: Code(s): J45.909 - Unspecified asthma, uncomplicated Category: Medical Qualifiers: Asthma severity: mild Asthma persistence: intermittent Asthma complication type: uncomplicated Qualified Code(s): J45.20 - Mild intermittent asthma, uncomplicated Plan: Continuing with Breo and albuterol and Singulair (9) Generalized anxiety disorder: Comment: Counselling and psychiatry [facility] Code(s): F41.1 - Generalized anxiety disorder Category: Medical Plan: Continue with counseling and therapy (10) Compression fracture of L2: Comment: October 2018 Code(s): S32.020A - Wedge compression fracture of second lumbar vertebra, initial encounter for closed fracture Category: Medical Plan: Continue with tramadol as needed (11) Headache: Code(s): R51.9 - Headache, unspecified Category: Medical (12) Dysphagia: Code(s): R13.10 - Dysphagia, unspecified Category: Medical Plan History of Present Illness The patient is a 60-year-old obese female presenting for a physical exam. Her medical history includes hypertension, asthma, GERD, hypercholesterolemia, a history of lumbar compression fracture, impaired glucose tolerance, and generalized anxiety disorder. The patient has a history of breast cancer diagnosed in 2011, with a recurrence in the left breast that was treated with a lumpectomy in September 2024. She follows up with her surgeon and hematology oncology, and is currently on letrozole for a planned 5-year course. Her last physical exam was in April 2025. Her mammogram is up-to-date, with the next one scheduled for September, her last bone density scan was in 2024, and her last colonoscopy was in 2016. Recent blood work from June showed a normal blood count without anemia, normal electrolytes with low-normal potassium, normal renal function, and an elevated blood sugar of 100. Her vitamin B12 was low, while folic acid and thyroid function were normal. Her last cholesterol panel from February 2025 showed an LDL of 112 and triglycerides of 168. The patient reports new and ongoing issues, including significant constipation, for which she has tried stool softeners. She has also experienced persistent knee pain since her last visit, with a recent x-ray demonstrating significant arthritis. She has been experiencing frequent headaches, which she describes as migraines, located around her eye, forehead, and posterior head. A previous trial of Imitrex made her sick to her stomach. She also reports significant neck pain that sometimes restricts movement and which she feels may be contributing to her headaches. There is an ongoing issue with dysphagia, characterized by a sensation of food getting stuck. A past barium swallow was reportedly normal aside from a small diverticulum. The patient reports recent nonadherence to her hydrochlorothiazide due to a pharmacy issue, which has since been resolved. Health Maintenance A tetanus vaccine was administered as the patient was last vaccinated in 2013. A referral will be made to gynecology for evaluation, as recommended by her oncologist. The patient's last mammogram was recent, with the next one due in September. Annual Pap smears are recommended, and blood work will be repeated in 5 to 6 months. Social History - Alcohol use: Occasional, reports drinking one glass of wine perhaps once a week when dining out. - Tobacco use: Denies any history of smoking cigarettes. - Illicit drug use: Denies use of recreational drugs. 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 - Exercise: Does not engage in formal exercise but considers her work to be physically active, as it involves walking and not sitting. - Nutrition: Typically eats two meals a day, described as brunch and dinner. - Sleep: Reports not sleeping well but also states her watch tracks about 8 hours of sleep per night. - Family History: Father had a brain aneurysm and heart problems. - A brother has heart problems. - Two sisters had breast cancer and another sister had throat cancer. Review of Systems - Constitutional: Denies fevers, syncope, or dizziness. - Eyes: Reports having early cataracts. - Ears: Reports having an earache currently. - HENT: Denies hearing problems. - Cardiovascular: Denies chest pain but reports some current chest tightness. - Respiratory: Denies cough. - Gastrointestinal: Reports having constipation and dysphagia with a sensation of food getting stuck. - Genitourinary: Denies any problems with urination. - Musculoskeletal: Reports knee pain with a sensation of swelling, and neck pain that can be severe enough to restrict movement. - Also reports hardness and tenderness over the left chest wall post-lumpectomy. - Neurological: Reports frequent headaches she describes as migraines. Physical Exam General: Cooperative, healthy appearing, comfortable, no acute distress and well developed Orientation: Patient oriented x3 Limitations: No limitations Head: Normal to inspection Ears: Hearing grossly normal bilaterally, but patient reports earache Nose: Normal external nose present Face and sinus: Normal facial exam Eyes: Appearance normal, both eyes and all related structures Neck: Normal visual inspection and Yes full ROM, but patient reports pain in the neck area Respiratory: Normal respiratory effort and able to speak in complete sentences. Clear to auscultation bilaterally Cardiovascular: Regular rate and rhythm. Normal S1 and S2 GI: Tenderness noted, patient reports constipation and abdominal tenderness Skin: No rashes or lesions noted Neuro: Patient oriented x3, reports headaches and migraines Extremities: Normal to inspection, patient reports knee pain and arthritis Results - Labs (June 28): - CBC: Normal, no anemia. - CMP: Normal electrolytes with low-normal potassium, normal renal function, blood sugar elevated at 100. - Hepatic function: Normal. - Vitamin B12: Low. - Folic acid and Thyroid studies: Within normal limits. - Labs (February 2025): - Lipid panel: LDL 112 mg/dL, triglycerides 168 mg/dL. - Imaging: - Knee X-ray (recent): Revealed significant arthritis. - Barium Swallow (prior): Normal study showing no hiatal hernia or reflux, but did note a small diverticulum in the descending colon. Plan Patient was informed and verbally consented to the use of an ambient scribe for clinic note documentation during this visit. 1. Hypertension The patient's blood pressure was elevated, which is attributed to recent non- adherence to her hydrochlorothiazide prescription due to a pharmacy issue that has now been resolved. Will continue lisinopril 5 mg and hydrochlorothiazide 25 mg daily. The patient was counseled on the importance of medication adherence and increasing potassium intake to counteract the effects of hydrochlor othiazide, given her low-normal potassium level. 2. Constipation The patient reports significant constipation. A prescription for a Senna and Colace combination will be sent, starting with one capsule at bedtime and titrating to two if needed. The patient was advised to increase water and dietary fiber intake. 3. Headaches The patient reports frequent headaches, described as migraines, and has a family history of a brain aneurysm. A CT scan of the head has been ordered, and a referral will be made to neurology for further evaluation. The patient was counseled on the importance of hydration, healthy eating, and adequate sleep for headache management. 4. Knee Pain The patient has ongoing knee pain, with a previous x-ray showing significant arthritis. The use of [id number] Voltaren gel three to four times a day was recommended to reduce swelling and inflammation. The patient will continue to use tramadol as needed for pain. 5. Dysphagia A referral to gastroenterology will be made for evaluation of her chronic dysphagia. 6. History Of Breast Cancer The patient will continue her 5-year course of letrozole and follow up with her surgeon and hematology-oncology as scheduled. 7. Vitamin B12 Deficiency Recent labs showed low vitamin B12. The patient will supplement with vitamin B12. 8. Hypercholesterolemia Continue simvastatin 5 mg once a day with a goal LDL < 130 and triglycerides < 150. 9. Asthma The patient will continue using Breo, albuterol as needed, and Singulair (montelukast). 10. Anxiety And Other Chronic Conditions The patient will continue her current medication regimen for anxiety, GERD, and pain, including counseling, famotidine, and tramadol as needed. Discussion Notes I reviewed the patient's current health status and multiple chronic conditions. I explained that her blood pressure was high today, likely because she recently missed doses of hydrochlorothiazide due to a pharmacy error; I stressed the importance of medication adherence. Given her low-normal potassium on recent labs while taking a diuretic, I advised her to increase her intake of potassium- rich foods like bananas. For her new complaint of constipation, I prescribed a Senna-Colace combination and provided counseling on increasing fluid and fiber intake. Regarding her chronic knee pain from arthritis, I recommended [id number] Voltaren gel, explaining it is an anti-inflammatory and showing her a picture of the product. We discussed her frequent headaches at length. Given the persistence of symptoms and her father's history of a brain aneurysm, I explained that we would proceed with a CT scan of her head and a referral to a neurologist to investigate further. I also made a referral to gastroenterology for her dysphagia and to gynecology for routine follow-up as recommended by her oncologist. We reviewed her immunizations, and after confirming her tetanus was out of date, she consented to receive the vaccination during today's visit. I informed her that her recent lab work was generally stable, and we would plan to recheck it in 5-6 months. Patient Instructions - Continue taking all of your current medications as prescribed. - I have sent a new prescription for constipation (Senna-Colace). - Take one or two capsules at bedtime as needed. - To help with constipation, be sure to drink plenty of water and eat more fiber, such as green leafy vegetables or by using a supplement like Metamucil (psyllium). - Because you take a water pill (hydrochlorothiazide), eat foods high in potassium like bananas to prevent cramps. - For your knee pain, you can use Voltaren gel, which is available over the counter. - Take your Vitamin B12 supplement as your level was low. - We have ordered a CT scan of your head to check on your headaches and have made a referral for you to see a neurologist (social security specialist). - We are also referring you to a production assembly supervisor (stomach doctor) for your swallowing problem and a rolled glass crosscutter (women's doctor) for a check-up. - You received a tetanus shot today. - We will plan to repeat your blood work in 5-6 months. Orders: Orders Influenza [id number] Immunization Today Z23 - Encounter for immunization Comprehensive Met. Panel Today Z12.4 - Encounter for screening for malignant neoplasm of cervix Thyroid Stimulating Hormone Today Z12.4 - Encounter for screening for malignant neoplasm of cervix Hemoglobin A1c Today Z12.4 - Encounter for screening for malignant neoplasm of cervix Vitamin B12 and Folate Today Z12.4 - Encounter for screening for malignant neoplasm of cervix UA CC w/rflx Micro + Cult Today R30.0 - Dysuria, Z12.4 - Encounter for screening for malignant neoplasm of cervix CT head/brain wo IV con Today R51.9 - Headache, unspecified Complete Blood Count Auto Diff Today Z12.4 - Encounter for screening for malignant neoplasm of cervix Lipid Panel Today E78.00 - Pure hypercholesterolemia, unspecified, Z12.4 - Encounter for screening for malignant neoplasm of cervix Free T4 (Free Thyroxine) Today Z12.4 - Encounter for screening for malignant neoplasm of cervix Vitamin D 25-OH Total Today Z12.4 - Encounter for screening for malignant neoplasm of cervix Td Immunization Today Z23 - Encounter for immunization Referrals Neurology Referral R51.9 - Headache, unspecified SEW OUT OPERATOR Referral Z12.4 - Encounter for screening for malignant neoplasm of cervix Gastroenterology Referral R13.10 - Dysphagia, unspecified Medications: New sennosides-docusate sodium 8.6-50 mg (Senna Plus) 2 tab-caps (2 x 8.6-50 mg) PO BID 60 caps 6RF
== END 2025-09-06 15:57 | disposition home or self-care (01) ==
LOC: HO.HMCH 14:37
PROVIDERS: PCP Internal Medicine; Visit Provider Internal Medicine
DX: Z00.00 Encounter for general adult medical examination without abnormal findings (principal); S32.020A Wedge compression fracture of second lumbar vertebra, initial encounter for closed fracture; E66.9 Obesity, unspecified; Z68.33 Body mass index [BMI] 33.0-33.9, adult; C50.919 Malignant neoplasm of unspecified site of unspecified female breast; I10 Essential (primary) hypertension; E78.00 Pure hypercholesterolemia, unspecified; R73.02 Impaired glucose tolerance (oral); J45.20 Mild intermittent asthma, uncomplicated; F41.1 Generalized anxiety disorder; R51.9 Headache, unspecified; Z23 Encounter for immunization

== ENCOUNTER 2025-09-13 08:54 | Outpatient (REF) | payer BC, SELFPAY ==
--- OUTSIDE RECORDS SUMMARY | 2012-07-27 23:00 | XMS_ITS | Encounter Summary ---
Author Organization [facility] Address [address] [facility] [address] [place] [address] Phone Care Team Providers Care Manager Student Services Name Role Phone Unavailable Primary Care Provider Unavailabl e Encounter Details Date Type Department Care Team (Late st Contact Info) Description 07/28/2012 Hospital Encounter [facility],Outside Imaging [address] [place] [address] Unknown, Unknown, Social History Tobacco Use Types Packs/Day Years Used Date Smoking Tobacco: Never Smokeless Tobacco: Never Alcohol Use Standard Drinks/Week Comments Yes 0 (1 standard drink = 0.6 oz pur e alcohol) social Education Answer Date Recorded Are you interested in more education? Not on barbra e 11/05/2024 Are you concerned about learning? Not on file 11/05/2024 No 11/05/2024 No 11/05/2024 Digital Access Answer Date Recorded No 11/05/2024 No 11/05/2024 Reliable internet access at home? Not on file 11/05/2024 Device with a working camera? Not on file Comments No Sex and Gender Information Value Date Recorded Sex Assigned at Not on file Legal Sex Female 9:52 AM EST Gender Identity Not on file Sexual Orientation Not on file documented as of this encounter Plan of Treatment Not on file documented as of this encounter Procedures Procedure Name Priority Date/Time Associated Diagnosis Comments BI MAMMOGRAM OUTSIDE (NO INTERPRETATION) Routine 07/28/2012 12:00 AM EDT documented in this encounter Results * Mammogram Outside (No Interpretation) (07/28/2012 12:00 AM EDT) Narrative SYSTEMGENERATED, DOCUMENTATION - 11/09/2024 7:28 AM EST This study is for PACS storage only and not for interpretation. us Unknown Unknown MD IMG OUTSIDE IMAGING W/OUT INT ERPRETATION Final Result documented in this encounter Visit Diagnoses Not on filedocumented in this encounter Additional Source Comments The information contained in this document represents components of the legal health record. It is not the complete legal health record.[facility]
--- OUTSIDE RECORDS SUMMARY | 2012-09-18 | XMS_ITS | Encounter Summary ---
Author Organization [facility] Address [address] [facility] [address] [place] [address] Phone Care Team Providers Care Commercial Solar Sales Consultant Name Role Phone Unavailable Primary Care Provider Unavailabl e Encounter Details Date Type Department Care Team (Late st Contact Info) Description 09/18/2012 Hospital Encounter [facility],Outside Imaging [address] [place] [address] Unknown, Unknown, Social History Tobacco Use Types [...] Comments BI MAMMOGRAM OUTSIDE (NO INTERPRETATION) Routine 09/18/2012 12:00 AM EST documented in this encounter Results * Mammogram Outside (No Interpretation) (09/18/2012 12:00 AM EST) Narrative SYSTEMGENERATED, DOCUMENTATION - 11/09/2024 7:28 AM EST This study is for PACS storage only and not for interpretation. us Unknown Unknown MD [place] OUTSIDE IMAGING W/OUT INT ERPRETATION Final Result documented in this encounter Visit Diagnoses Not on filedocumented in this encounter Additional Source Comments The information contained in this document represents components of the legal health record. It is not the complete legal health record.[facility]
--- OUTSIDE RECORDS SUMMARY | 2012-09-23 | XMS_ITS | Encounter Summary ---
Author Organization [facility] Address [address] [facility] [address] [place] [address] Phone Care Team Providers Care Senior Medical Technologist Name Role Phone Unavailable Primary Care Provider Unavailabl e Encounter Details Date Type Department Care Team (Late st Contact Info) Description 09/23/2012 Hospital Encounter [facility],Outside Imaging [address] [place] [address] Unknown, Unknown, Social History Tobacco Use Types [...] Priority Date/Time Associated Diagnosis Comments BI MAMMOGRAM SPECIMENT OUTSIDE (NO INTERPRETATION) Routine 09/23/2012 12:00 AM EST documented in this encounter Results * Mammogram Specimen Outside (No Interpretation) (09/23/2012 12:00 AM EST) Narrative SYSTEMGENERATED, DOCUMENTATION - 11/09/2024 7:27 AM EST This study is for PACS storage only and not for interpretation. us Unknown Unknown MD IMG OUTSIDE IMAGING W/OUT INT ERPRETATION Final Result documented in this encounter Visit Diagnoses Not on filedocumented in this encounter Additional Source Comments The information contained in this document represents components of the legal health record. It is not the complete legal health record.[facility]
--- OUTSIDE RECORDS SUMMARY | 2012-09-23 00:05 | XMS_ITS | Encounter Summary ---
Author Organization [facility] Address [address] [facility] [place] [address] Phone Care Team Providers Care Chemical Process Project Engineer Name Role Phone Unavailable Primary Care Provider Unavailabl e Encounter Details Date Type Department Care Team (Late st Contact Info) Description 09/23/2012 12:05 AM EST Hospital Encounter [facility],Outside Imaging [address] [place] [address] Unknown, Unknown, Social History Tobacco Use Types [...] Comments BI MAMMOGRAM OUTSIDE (NO INTERPRETATION) Routine 09/23/2012 12:05 AM EST documented in this encounter Results * Mammogram Outside (No Interpretation) (09/23/2012 12:05 AM EST) Narrative SYSTEMGENERATED, DOCUMENTATION - 11/09/2024 [...] It is not the complete legal health record.[facility]
--- OUTSIDE RECORDS SUMMARY | 2012-10-19 | XMS_ITS | Encounter Summary ---
Author Organization [facility] Address [address] [facility] [address] [place] [address] Phone Care Team Providers Care Supervisor Dumping Name Role Phone Unavailable Primary Care Provider Unavailabl e Encounter Details Date Type Department Care Team (Late st Contact Info) Description 10/19/2012 Hospital Encounter [facility],Outside Imaging [address] [place] [address] Unknown, Unknown, Social History Tobacco Use Types [...] Comments BI MAMMOGRAM OUTSIDE (NO INTERPRETATION) Routine 10/19/2012 12:00 AM EST documented in this encounter Results * Mammogram Outside (No Interpretation) (10/19/2012 12:00 AM EST) Narrative SYSTEMGENERATED, DOCUMENTATION - [...]
--- OUTSIDE RECORDS SUMMARY | 2012-10-28 | XMS_ITS | Encounter Summary ---
Author Organization [facility] Address [address] [place] [address] Phone Care Team Providers Care Lumber Scaler Name Role Phone Unavailable Primary Care Provider Unavailabl e Encounter Details Date Type Department Care Team (Late st Contact Info) Description 10/28/2012 Hospital Encounter [facility],Outside Imaging [address] [place] [address] Unknown, Unknown, Social History Tobacco Use Types [...] Name Priority Date/Time Associated Diagnosis Comments BI MRI BREAST OUTSIDE (NO INTERPRETATION) Routine 10/28/2012 12:00 AM EST documented in this encounter Results * MRI Breast Outside (No Interpretation) (10/28/2012 12:00 AM EST) Narrative SYSTEMGENERATED, DOCUMENTATION - [...] It is not the complete legal health record.[facility]
--- OUTSIDE RECORDS SUMMARY | 2013-07-28 23:00 | XMS_ITS | Encounter Summary ---
Author Organization [facility] Address [address] [facility] [address] [place] [address] Phone Care Team Providers Care Storm Window Installer Name Role Phone Unavailable Primary Care Provider Unavailabl e Encounter Details Date Type Department Care Team (Late st Contact Info) Description 07/29/2013 Hospital Encounter [facility],Outside Imaging [address] [place] [address] Unknown, Unknown, Social History Tobacco Use Types [...] Comments BI MAMMOGRAM OUTSIDE (NO INTERPRETATION) Routine 07/29/2013 12:00 AM EDT documented in this encounter Results * Mammogram Outside (No Interpretation) (07/29/2013 12:00 AM EDT) Narrative SYSTEMGENERATED, DOCUMENTATION - 11/09/2024 7:27 AM [...] It is not the complete legal health record.[facility]
--- NOTE | ~2025-09-13 | MM_ITS ---
EXAMINATION(S): MM DIAGNOSTIC DIGITAL BREAST TOMOSYNTHESIS, BILATERAL CLINICAL INFORMATION: Status post left breast lumpectomy for breast cancer in September 2024 COMPARISON: Comparison made to multiple prior, most recent postprocedure left diagnostic mammogram on September 20, 2024, and most remote November 12, 2019 TECHNIQUE: Digital breast tomosynthesis is performed in both the mediolateral oblique and craniocaudal views along with computer-aided detection (CAD). Synthesized 2D images are generated from the tomosynthesis. FINDINGS: BREAST COMPOSITION: The breasts are heterogeneously dense, which may obscure small masses. RIGHT BREAST: No significant masses, suspicious calcifications or other abnormalities are seen. LEFT BREAST: Posttreatment changes. No significant masses, suspicious calcifications or other abnormalities are seen. MM/MM tomosynthesis diagnostic BI IMPRESSION: BILATERAL BREASTS: Benign, no mammographic evidence of malignancy. Normal interval follow-up is recommended in 12 months. ASSESSMENT: BI-RADS: Category 2: Benign RECOMMENDATION: 12 month diagnostic follow up Results were provided to the patient at time of visit by the technologist. This patient's information was entered into a reminder system with a target due date for their next mammogram. Electronically signed by: Ileana Lawrence MD 09/13/2025 10:48 AM [facility]
--- OUTSIDE RECORDS SUMMARY | 2025-09-13 09:39 | XMS_ITS | Clinical Summary ---
Author Organization [facility] Address [address] [place] [id number] Phone Care Team Providers Care Plate Put In Worker Name Role Phone Aniceto Levy MD Primary Care Provider [phone] Allergies Active Allergy Reactions Criticality Noted Date [...] Most Recently Relevant to Health Maintenance Insurance [facility] [place] Care Teams Plate Put In Worker Relationship Specialty Start Date End Date Aniceto Levy MD [address] [place] [address] PCP - General Internal Medicine 11/05/24 Additional Source Comments The information contained in this document represents components of the legal health record. It is not the complete legal health record.[facility]
== END 2025-09-13 08:55 | disposition home or self-care (01) ==
LOC: HO.MAMMO 08:54
PROVIDERS: PCP Internal Medicine; Visit Provider Internal Medicine Medical Oncology
DX: Z85.3 Personal history of malignant neoplasm of breast (principal)
CPT/HCPCS: 77062; 77065; 77066

== ENCOUNTER → 2025-09-13 09:00 | Outpatient (BNV) | payer BC, SELFPAY | PROVIDERS: PCP Internal Medicine; Visit Provider Radiology Body Imaging | DX: C50.912 Malignant neoplasm of unspecified site of left female breast (principal) | CPT/HCPCS: 77062; 77066 ==

== ENCOUNTER 2025-10-14 09:19 | Outpatient (REF) | payer BC, SELFPAY ==
--- NOTE | ~2025-10-14 | CT_ITS ---
EXAMINATION: CT HEAD WITHOUT CONTRAST CLINICAL INFORMATION: Headache, unspecified. COMPARISON: None available. TECHNIQUE: Contiguous axial imaging was performed from the skull base to vertex without intravenous administration of contrast. This CT examination was performed using dose optimization techniques as appropriate, variously including the following: *Automated exposure control *Adjustment of mA and/or kV according to patient size (this includes techniques or standardized protocols for targeted exams where dose is matched to indication/reason for exam; i.e. extremities or head) *Use of iterative reconstruction technique FINDINGS: There is no evidence of intracranial hemorrhage or extra-axial fluid collection. There is no mass effect, or edema. No CT evidence of acute territorial infarct. Ventricles, sulci, and cisterns are normal in size and configuration for patient age. No hydrocephalus. No midline shift. Negative hyperdense MCA sign. Negative insular ribbon sign. Patchy periventricular and deep white matter hypoattenuation is consistent with mild to moderate small vessel ischemic changes. Partial empty sella. Mild atheromatous calcification of the bilateral carotid siphons and V4 segments vertebral arteries bilaterally. Globes and orbital contents image normally. No extracranial soft tissue abnormalities. The paranasal sinuses, mastoid air cells, and tympanic cavities are normally aerated. No suspicious bony abnormalities. There are no acute fractures evident. There is mild hyperostosis frontalis internus. CT/CT head/brain wo IV con IMPRESSION: No acute intracranial abnormality. Electronically signed by: Bronson Escalera MD 10/14/2025 10:47 AM [facility]
== END 2025-10-14 09:20 | disposition home or self-care (01) ==
LOC: HO.CT 09:19
PROVIDERS: PCP Internal Medicine; Visit Provider Internal Medicine
DX: R51.9 Headache, unspecified (principal)
CPT/HCPCS: 70450

== ENCOUNTER → 2025-10-14 09:20 | Outpatient (BNV) | payer BC, SELFPAY | PROVIDERS: PCP Internal Medicine; Visit Provider Radiology Diagnostic Radiology | DX: R51.9 Headache, unspecified (principal) | CPT/HCPCS: 70450 ==